=== PATIENT | female | born 1970 | race Caucasian/White ===

== ENCOUNTER 2019-04-10 17:28 | Emergency (ER) | payer OTHER ==
[2019-04-10] MEDS ORDERED: DOXYCYCLINE 100 MG CAP PO ONE (18:35)
[2019-04-10] MEDS ORDERED: TETANUS & DIPHTHERIA TOX,ADULT 0.5 ML VIAL ONE (18:35)
--- NOTE | 2019-04-10 18:39 | ER ---
Nurse's Notes [facility] Name: Vicki Peace Age: 48 yrs Sex: Female : 1970 Arrival Date: 04/10/2019 Time: 17:29 Bed 16 Private MD: Diagnosis: Bitten by dog Presentation: 04/10 18:08 Presenting complaint: Patient states: Dog bite on the right forearm by her son's dog rb1 that he just got [facility] Transition of care: patient was not received from another setting of care. Onset of symptoms was April 10, 2019 at 17:15. 18:08 Method Of Arrival: Ambulatory rb1 18:08 Acuity: MARI 3 rb1 18:46 Risk Assessment: Do you want to hurt yourself or someone else? Patient reports no ae4 desire to harm self or others. Initial Sepsis Screen: Does the patient meet any 2 criteria? No. Patient's initial sepsis screen is negative. Does the patient have a suspected source of infection? No. Patient's initial sepsis screen is negative. Care prior to arrival: None. Triage Assessment: 18:10 Bite description: bite sustained to Right forearm by a dog, animal information: rb1 Appearance: appeared well, vaccination(s) is current, was sustained 30-60 minutes ago. Animal status: son's dog. Neuro: Level of Consciousness is awake, alert, obeys commands, Oriented to person, place, time, situation. Respiratory: Airway is patent Respiratory effort is even, unlabored, Respiratory pattern is regular, symmetrical. Derm: Skin is pink, warm \T\ dry. Wound noted right forearm. FLIGHT HOSTESS: 18:48 LMP N/A - Irregular menses ae4 Historical: - Allergies: 18:10 Sulfa (Sulfonamide Antibiotics); rb1 18:10 PENICILLINS; rb1 - Immunization history:: Adult Immunizations up to date, Last tetanus immunization: > 10 years ago. - Social history:: Smoking status: Patient/guardian denies using tobacco. - Ebola Screening: : Patient negative for fever greater than or equal to 101.5 degrees Fahrenheit, and additional compatible Ebola Virus Disease symptoms Patient denies exposure to infectious person Patient denies travel to an Ebola-affected area in the 21 days before illness onset. Screenin:46 Abuse screen: Denies threats or abuse. Nutritional screening: No deficits noted. ae4 Tuberculosis screening: No symptoms or risk factors identified. Fall Risk None identified. Assessment: 18:28 Reassessment: Called [place] [employer] to report the dog bite. It happened at [address], [place] [address]. Bradley Tellez is the pt. son and radiology teacher of the dog, his phone number [phone]. [employer] will send someone to speak with the pt. 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 General: ae4 Appears in no apparent distress. uncomfortable, Behavior is cooperative, anxious. Pain: Complains of pain in dorsal aspect of right forearm, right wrist and palmar aspect of right forearm Pain currently is 8 out of 10 on a pain scale. Neuro: Level of Consciousness is awake, alert, obeys commands, Oriented to person, place, time, situation, Appropriate for age. Cardiovascular: Patient's skin is warm and dry. Respiratory: Airway is patent Respiratory effort is even, unlabored, Respiratory pattern is regular, symmetrical. GI: No signs and/or symptoms were reported involving the gastrointestinal system. : No signs and/or symptoms were reported regarding the genitourinary system. EENT: No signs and/or symptoms were reported regarding the EENT system. Derm: Skin Puncture wounds to to right wrist. 4 small punctures with small amount of blood noted, redness and beginning sign of purple bruising to right inner wrist. 19:21 Reassessment: Patient and/or family updated on plan of care and expected duration. Pain ea level reassessed. Patient is alert, oriented x 3, equal unlabored respirations, skin warm/dry/pink. Discharge instruction given to patient, verbalized the understanding of instruction. Pt left ED ambulatory accompanied by family. Vital Signs: 18:10 BP 135 / 85; Pulse 84; Resp 18; Temp 99.0(TE); Pulse Ox 98% on R/A; Weight 89.36 kg rb1 (R); Height 5 ft. 5 in. (165.10 cm) (R); Pain 5/10; 18:10 Body Mass Index 32.78 (89.36 kg, 165.10 cm) rb1 ED Course: 17:29 Patient arrived in ED. as 17:56 Jyoti Camarena FNP-C is PHCP. kb 17:56 Willy Garcia MD is Attending Physician. kb 18:09 Triage completed. rb1 18:10 Arm band placed on left wrist. rb1 18:30 Ulises Green, RN is Primary Nurse. ae4 18:47 Bed in low position. Call light in reach. Side rails up X 1. Adult w/ patient. ae4 18:47 Wound care: to bite located on dorsal aspect of right forearm, right wrist and palmar ae4 aspect of right forearm was cleaned with Betadine, irrigated with normal saline. 18:49 Wound care: to Patient tolerated well. mh5 19:22 No provider procedures requiring assistance completed. Patient did not have IV access ea during this emergency room visit. Administered Medications: 18:40 Drug: Doxycycline 100 mg Route: PO; ae4 19:07 Follow up: Response: Medication administered at discharge. ae4 18:40 Drug: Tetanus-Diphtheria Toxoid Adult 0.5 ml {[employer]: [employer]. Exp: ae4 04/28/2021. Lot #: [id number]. } Route: IM; Site: left deltoid; 19:07 Follow up: Response: No adverse reaction ae4 Outcome: 18:38 Discharge ordered by MD. kb 19:22 Discharged to home ambulatory, with family. ea 19:22 Condition: stable 19:22 Discharge instructions given to patient, Instructed on discharge instructions, follow up and referral plans. medication usage, Demonstrated understanding of instructions, follow-up care, medications, Prescriptions given X 1. 19:23 Patient left the ED. ea Signatures: Jyoti Camarena FNP-C FNP-Vannesa Faye Shelby, RN RN Chrissy Graham, Danika Damian RN [facility] Thu Theodore RN RN ea Elliott, Andrea, RN RN ae4 Corrections: (The following items were deleted from the chart) 18:30 18:28 Reassessment: Called [facility] to report the dog bite. It happened at [address] [facility], [place] [address]. Bradley Tellez is the pt. son and radiology teacher of the dog, his phone number [phone]. PD will send someone to speak with the pt. 18:31 18:08 Presenting complaint: Patient states: Dog bite on the right forearm by her son's rb1 dog that he just got from [place] [facility]. rb1 18:31 18:28 Reassessment: Called [place] [employer] to report the dog bite. It happened at [address], [place] [address]. Bradley Tellez is the pt. son and radiology teacher of the dog, his phone number [phone]. [employer] will send someone to speak with the pt. ss
--- NOTE | 2019-04-10 18:39 | EDPHYS ---
Physician Documentation [facility] Name: Vicki Peace Age: 48 yrs Sex: Female : 1970 Arrival Date: 04/10/2019 Time: 17:29 Bed 16 Private MD: ED Physician Willy Garcia HPI: 04/10 18:48 This 48 yrs old Female presents to ER via Ambulatory with complaints of Dog kb Bite - r wrist. 18:48 The patient was bitten on the dorsal aspect of right forearm, by a dog, for an unknown kb reason, at a relative's home. Onset: The symptoms/episode began/occurred today. Animal information: Animal's vaccinations are up to date. The animal is known and can be quarantined. Secondary to the bite the patient reports multiple puncture wounds, that are superficial. Associated signs and symptoms: Pertinent positives: pain at site, swelling at site, tenderness. Severity of symptoms: At their worst the symptoms were mild, moderate, in the emergency department the symptoms are unchanged. The patient has not experienced similar symptoms in the past. Pt reports her son just got a new dog from the [facility] and it bit her. 18:49 The patient has not recently seen a physician. 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 - Social history:: Smoking status: Patient/guardian denies using tobacco. - Ebola Screening: : Patient negative for fever greater than or equal to 101.5 degrees Fahrenheit, and additional compatible Ebola Virus Disease symptoms Patient denies exposure to infectious person Patient denies travel to an Ebola-affected area in the 21 days before illness onset. ROS: 18:47 Constitutional: Negative for fever, chills, and weight loss, Neck: Negative for injury, kb pain, and swelling, Cardiovascular: Negative for chest pain, palpitations, and edema, Respiratory: Negative for shortness of breath, cough, wheezing, and pleuritic chest pain, Abdomen/GI: Negative for abdominal pain, nausea, vomiting, diarrhea, and constipation, Back: Negative for injury and pain, MS/Extremity: Negative for injury and deformity, Neuro: Negative for headache, weakness, numbness, tingling, and seizure. 18:47 Skin: Positive for puncture, of the dorsal aspect of right forearm. Exam: 18:46 Constitutional: This is a well developed, well nourished patient who is awake, alert, kb and in no acute distress. Head/Face: Normocephalic, atraumatic. Neck: Trachea midline, no thyromegaly or masses palpated, and no cervical lymphadenopathy. Supple, full range of motion without nuchal rigidity, or vertebral point tenderness. No Meningismus. Chest/axilla: Normal chest wall appearance and motion. Nontender with no deformity. No lesions are appreciated. Cardiovascular: Regular rate and rhythm with a normal S1 and S2. No gallops, murmurs, or rubs. Normal PMI, no JVD. No pulse deficits. Respiratory: Lungs have equal breath sounds bilaterally, clear to auscultation and percussion. No rales, rhonchi or wheezes noted. No increased work of breathing, no retractions or nasal flaring. Abdomen/GI: Soft, non-tender, with normal bowel sounds. No distension or tympany. No guarding or rebound. No evidence of tenderness throughout. MS/ Extremity: Pulses equal, no cyanosis. Neurovascular intact. Full, normal range of motion. Neuro: Awake and alert, GCS 15, oriented to person, place, time, and situation. Cranial nerves II-XII grossly intact. Motor strength 5/5 in all extremities. Sensory grossly intact. Cerebellar exam normal. Normal gait. 18:46 Skin: injury, bite(s), superficial, of the dorsal aspect of right forearm, punctures. Vital Signs: 18:10 BP 135 / 85; Pulse 84; Resp 18; Temp 99.0(TE); Pulse Ox 98% on R/A; Weight 89.36 kg rb1 (R); Height 5 ft. 5 in. (165.10 cm) (R); Pain 5/10; 18:10 Body Mass Index 32.78 (89.36 kg, 165.10 cm) rb1 MDM: 18:11 Patient medically screened. kb 18:46 Data reviewed: vital signs, nurses notes. Data interpreted: Pulse oximetry: on room air kb is 98 %. Interpretation: normal. Counseling: I had a detailed discussion with the patient and/or guardian regarding: the historical points, exam findings, and any diagnostic results supporting the discharge/admit diagnosis, the need for outpatient follow up, a family practitioner, to return to the emergency department if symptoms worsen or persist or if there are any questions or concerns that arise at home. 04/10 18:12 Order name: Wound Care; Complete Time: 18:49 kb 04/10 18:12 Order name: Misc. Order: [facility]; Complete Time: 18:49 kb Administered Medications: 18:40 Drug: Doxycycline 100 mg Route: PO; ae4 19:07 Follow up: Response: Medication administered at discharge. ae4 18:40 Drug: Tetanus-Diphtheria Toxoid Adult 0.5 ml {[employer]: [employer]. Exp: ae4 04/28/2021. Lot #: [id number]. } Route: IM; Site: left deltoid; 19:07 Follow up: Response: No adverse reaction ae4 Disposition: 04/10/19 18:38 Discharged to Home. Impression: Bitten by dog. - Condition is Stable. - Discharge Instructions: Animal Bite, [id number]. - Prescriptions for Doxycycline Hyclate 100 mg Oral Tablet - take 1 tablet by ORAL route every 12 hours; 20 tablet. - Medication Reconciliation Form, Thank You Letter, Antibiotic Education, Prescription Opioid Use form. - Follow up: Emergency Department; When: As needed; Reason: Worsening of condition. Follow up: Private Physician; When: 2 - 3 days; Reason: Recheck today's complaints, Continuance of care, Re-evaluation by your physician. Addendum: 04/18/2019 11:13 Co-signature as Attending Physician, Willy Garcia MD I agree with the assessment and c rodriguez plan of care. Signatures: Jyoti Camarena, PILOT-C PILOT-Ckb Willy Garcia MD MD cha Barber, Rebecca, RN RN Thu Hernandez RN RN ea Elliott, Andrea RN RN ae4 Corrections: (The following items were deleted from the chart) 04/10 19:23 18:38 04/10/2019 18:38 Discharged to Home. Impression: Bitten by dog. Condition is ea Stable. Forms are Medication Reconciliation Form, Thank You Letter, Antibiotic Education, Prescription Opioid Use. Follow up: Emergency Department; When: As needed; Reason: Worsening of condition. Follow up: Private Physician; When: 2 - 3 days; Reason: Recheck today's complaints, Continuance of care, Re-evaluation by your physician. kb
[2019-04-10 21:06] VITALS: BP 135/85; TEMP 99; O2SAT 98
== END 2019-04-10 19:23 | disposition home or self-care (01) ==
LOC: ER 17:28
DX: S51.831A Puncture wound without foreign body of right forearm, initial encounter (principal); W54.0XXA Bitten by dog, initial encounter; Y93.9 Activity, unspecified; Y92.89 Other specified places as the place of occurrence of the external cause; Z23 Encounter for immunization; Z88.0 Allergy status to penicillin; Z88.2 Allergy status to sulfonamides
CPT/HCPCS: 90471; 90714; 99284

== ENCOUNTER 2021-08-17 00:22 | Emergency (ER) | payer OTHER, SELFPAY ==
--- OUTSIDE RECORDS SUMMARY | 2021-08-17 00:25 | XMS REPORT | Continuity of Care Document ---
:1970 Author Organization [facility] t Address [address] [place] [address] [address] [place] [address] Care Team Providers Name Role Phone Tor MILES, H Attending Clinician Marcella BUTCHER M Attending Clinician Unavailable Doctor Unassigned, Name Attending Clinician Unavailable Pob[facility], Care [facility] Attending Clinician Unavailable Anene CHEF SAUCIER Attending Clinician ANENE Attending Clinician Unavailable Payers Payer Name Policy Type Policy Number Effective Date Expiration Date S ource Problems Condition Condition Condition Status Onset Resolution Last Treating Co mments Source Name Details Category Date Date Treatment Clinician Date No known No known Disease NPI:1 83 active active [id number] problems problems Allergies, Adverse Reactions, Alerts Allergy Allergy Status Severity Reaction(s) Onset Inactive Treating Comm ents Source Name Type Date Date Clinician NO KNOWN Drug Active NPI:183 ALLERGIE Class [id number] S Social History Social Habit Start Date Stop Date Quantity Comments Source History of Cigarette Smoker NPI:[id number] tobacco use Sex Assigned At NPI:[id number] Exposure to Not sure NPI:[id number] SARS-CoV-2 (event) Tobacco Comment 2019-10-06 2019-10-06 vape NPI:[id number] 00:00:00 00:00:00 Smoking Status Start Date Stop Date Source Former smoker 2019-10-06 00:00:00 2019-10-06 00:00:00 NPI:[id number] Medications Ordered Filled Start Stop Current Ordering Indication Dosage Frequency Signature Comments Components Source Medication Medication Date Date Medication? Clinician (SIG) Name Name metformin Yes NPI:183 ER 500 mg 09-12 [id number] 24 hr 00:00: tablet 00 atorvastati Yes NPI:18 3 n 20 mg 09-12 [id number] tablet 00:00: 00 lisinopril 2020-0 Yes NPI:183 5 mg tablet - [id number] 00:00: 00 metoprolol 2020-0 Yes NPI:183 succinate 6- [id number] XL 50 mg 24 00:00: hr tablet 00 metformin 2020-0 Yes NPI:183 ER 500 mg 6- [id number] 24 hr 00:00: tablet 00 atorvastati 2020-0 Yes NPI:18 3 n 20 mg 6- [id number] tablet 00:00: 00 lisinopril 2020-0 Yes NPI:183 5 mg tablet 09-12 [id number] 00:00: 00 metoprolol 2020-0 Yes NPI:183 succinate 6- [id number] XL 50 mg 24 00:00: hr tablet 00 metformin 2020-0 Yes NPI:183 ER 500 mg 6- [id number] 24 hr 00:00: tablet 00 atorvastati 2020-0 Yes NPI:18 3 n 20 mg - [id number] tablet 00:00: 00 lisinopril 2020-0 Yes NPI:183 5 mg tablet - [id number] 00:00: 00 metoprolol 2020-0 Yes NPI:183 succinate 6- [id number] XL 50 mg 24 00:00: hr tablet 00 metformin 2020-0 Yes NPI:183 ER 500 mg - [id number] 24 hr 00:00: tablet 00 atorvastati 2020-0 Yes NPI:18 3 n 20 mg - [id number] tablet 00:00: 00 lisinopril 2020-0 Yes NPI:183 5 mg tablet - [id number] 00:00: 00 metoprolol 2020-0 Yes NPI:183 succinate 6- [id number] XL 50 mg 24 00:00: hr tablet 00 Vital Signs Vital Name Observation Time Observation Value Comments Source Systolic blood pressure 2019-10-06 20:46:00 134 mm[Hg] Diastolic blood 2019-10-06 20:46:00 92 mm[Hg] NPI:1 [id number] pressure Heart rate 2019-10-06 20:43:00 66 /min NPI:[id number] Body temperature 2019-10-06 20:43:00 37.61 Stefany Respiratory rate 2019-10-06 20:43:00 17 /min Body height 2019-10-06 20:43:00 166.4 cm NPI:1831 [id number] Body weight 2019-10-06 20:43:00 94.802 kg NPI:1831 [id number] BMI 2019-10-06 20:43:00 34.25 kg/m2 NPI:1831 [id number] Oxygen saturation in 2019-10-06 20:43:00 99 /min Arterial blood by Pulse oximetry Procedures This patient has no known procedures. Encounters Start End Encounter Admission Attending Care Care Encounter Source Date/Time Date/Time Type Type Clinicians Facility Department ID 2019-10-07 2019-10-07 Letter SESAR Lentz [id number] NPI:183 00:00:00 00:00:00 (Out) [facility] [id number] [facility] [id number] 2019-10-07 2019-10-07 Telephone Rosina Naranjo [id number] NPI:183 00:00:00 00:00:00 [facility] [id number] [id number] [facility] [id number] 2019-10-07 2019-10-07 Letter Doctor DONG [id number] NPI:183 00:00:00 00:00:00 (Out) Unassigned, DAMON [id number] [facility] [id number] 2019-10-06 2019-10-06 Urgent Pob1, Acute Care Clinic [facility] [id number] NPI:183 15:17:18 16:11:22 Asha Eddy [id number] [place] [id number] Professio [id number] nal [address] 2019-10-06 2019-10-06 Outpatient Zarina GERARDO [facility] [id number] NPI:183 15:20:00 15:20:00 ASHA [id number] Results Test Description Test Time Test Comments Results Result Sourc e Comments SCR MAMM 2020-04-30 BILATERAL TRISTON 17:29:57 CAD DIGITAL Name: Vicki : 1970 Sex: F - SCR MAMM BILATERAL TRISTON CAD DIGITALBILATERAL DIGITAL SCREENING MAMMOGRAM 3D/2D WITH CAD: 04/18/2020LINICAL: Asymptomatic. Digital breast tomosynthesis was performed in addition to routine CC and MLO views. Current mammographic images were evaluated by either a [employer] M-Vu or a [employer] ImageChecker CAD (computer aided detection system). No prior exams were available for comparison. There are scattered fibroglandular tissues in both breasts. There are benign densities in both breasts. No suspicious mass, architectural distortion, malignant type calcification, or lymph node abnormality detected. IMPRESSION: BENIGNThere is no mammographic evidence of malignancy. Resume annual screening mammography in one year. Farheen shahid/penrad:04/30/2020 17:29:57 Dietitian Assistant: Gianna Parekh MM, [facility] Mammographyletter sent: BIRADS 1-2 Normal Mammogram BI-RADS: 2 Benign
--- NOTE | 2021-08-17 01:54 | EDPHYS ---
Physician Documentation [facility] Name: Vicki Peace Age: 50 yrs Sex: Female : 1970 Arrival Date: 08/17/2021 Time: 00:26 Bed 11 Private MD: ED Physician John Watts HPI: 08/17 01:47 This 50 yrs old Female presents to ER via Ambulatory with complaints of Rash. [facility] 01:47 The patient's rash thought to be caused by insect bites. The rash is located on the mh7 body diffusely. The rash can be described as urticarial. Onset: The symptoms/episode began/occurred yesterday. Associated signs and symptoms: Pertinent positives: itching, Pertinent negatives: burning sensation, difficulty breathing, fever, nausea, Pain swelling of lips, swelling of throat, swelling of tongue, vomiting, wheezing. Severity of symptoms: At their worst the symptoms were moderate yesterday, in the emergency department the symptoms are unchanged. Treatment given at home: OTC lotion/cream. States that she was at a bar and thinks she was bitten by some small insects then the next morning noticed an itchy rash all over her body. Denies change of soap, detergents, new medication, or recent travel.. Historical: - Allergies: 01:15 PENICILLINS; lp1 01:15 Sulfa (Sulfonamide Antibiotics); lp1 - Home Meds: 01:15 Metoprolol Tartrate Oral [Active]; lp1 - PMHx: 01:15 Hypertensive disorder; Hypercholesterolemia; lp1 - PSHx: 01:15 Cholecystectomy; Appendectomy; tubal ligation; lp1 - Immunization history:: Adult Immunizations up to date, Client reports receiving the 2nd dose of the Covid vaccine. - Social history:: Smoking status: Reported history of juuling and/or vaping. ROS: 01:47 Constitutional: Negative for fever, chills, and weight loss, Eyes: Negative for injury, mh7 pain, redness, and discharge, ENT: Negative for injury, pain, and discharge, Neck: Negative for injury, pain, and swelling, Cardiovascular: Negative for chest pain, palpitations, and edema, Respiratory: Negative for shortness of breath, cough, wheezing, and pleuritic chest pain, Abdomen/GI: Negative for abdominal pain, nausea, vomiting, diarrhea, and constipation, Back: Negative for injury and pain, : Negative for injury, bleeding, discharge, and swelling, MS/Extremity: Negative for injury and deformity, Neuro: Negative for headache, weakness, numbness, tingling, and seizure, Psych: Negative for depression, anxiety, suicide ideation, homicidal ideation, and hallucinations, Endocrine: Negative for neck swelling, polydipsia, polyuria, polyphagia, and marked weight changes, Hematologic/Lymphatic: Negative for swollen nodes, abnormal bleeding, and unusual bruising. Exam: 01:47 Constitutional: This is a well developed, well nourished patient who is awake, alert, mh7 and in no acute distress. Head/Face: Normocephalic, atraumatic. Eyes: Pupils equal round and reactive to light, extra-ocular motions intact. Lids and lashes normal. Conjunctiva and sclera are non-icteric and not injected. Cornea within normal limits. Periorbital areas with no swelling, redness, or edema. ENT: Nares patent. No nasal discharge, no septal abnormalities noted. Tympanic membranes are normal and external auditory canals are clear. Oropharynx with no redness, swelling, or masses, exudates, or evidence of obstruction, uvula midline. Mucous membranes moist. Neck: Trachea midline, no thyromegaly or masses palpated, and no cervical lymphadenopathy. Supple, full range of motion without nuchal rigidity, or vertebral point tenderness. No Meningismus. Chest/axilla: Normal chest wall appearance and motion. Nontender with no deformity. No lesions are appreciated. Cardiovascular: Regular rate and rhythm with a normal S1 and S2. No gallops, murmurs, or rubs. Normal PMI, no JVD. No pulse deficits. Respiratory: Lungs have equal breath sounds bilaterally, clear to auscultation and percussion. No rales, rhonchi or wheezes noted. No increased work of breathing, no retractions or nasal flaring. Abdomen/GI: Soft, non-tender, with normal bowel sounds. No distension or tympany. No guarding or rebound. No evidence of tenderness throughout. Back: No spinal tenderness. No costovertebral tenderness. Full range of motion. MS/ Extremity: Pulses equal, no cyanosis. Neurovascular intact. Full, normal range of motion. Neuro: Awake and alert, GCS 15, oriented to person, place, time, and situation. Cranial nerves II-XII grossly intact. Motor strength 5/5 in all extremities. Sensory grossly intact. Cerebellar exam normal. Normal gait. Psych: Awake, alert, with orientation to person, place and time. Behavior, mood, and affect are within normal limits. 01:47 Skin: rash a mild rash is noted, rash can be described as urticarial, and is diffusely located. Vital Signs: 01:16 BP 146 / 85; Pulse 109; Resp 20; Temp 98.2; Pulse Ox 100% on R/A; Weight 93.44 kg (R); lp1 Height 5 ft. 5 in. (165.10 cm); 01:16 Body Mass Index 34.28 (93.44 kg, 165.10 cm) lp1 MDM: 01:51 Differential diagnosis: impetigo, varicella, allergic reaction, parasite infection. [facility] Data reviewed: vital signs, nurses notes. Data interpreted: Pulse oximetry: on room air is 100 %. Interpretation: normal. 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 01:53 Patient medically screened. [facility] Administered Medications: 02:07 Drug: predniSONE 60 mg Route: PO; lp1 02:08 Follow up: Response: Medication administered at discharge. lp1 02:07 Drug: Pepcid (famotidine) 20 mg Route: PO; lp1 02:08 Follow up: Response: Medication administered at discharge. lp1 02:07 Drug: Benadryl (diphenhydrAMINE) 50 mg Route: PO; lp1 02:08 Follow up: Response: Medication administered at discharge. lp1 Disposition Summary: 08/17/21 01:53 Discharge Ordered Location: Home [facility] Problem: [facility] Symptoms: have improved mh7 Condition: Stable mh Diagnosis - Rash and other nonspecific skin eruption - possible insect bites 7 - Urticaria, unspecified mh7 Followup: [facility] - With: Private Physician - When: 1 - 2 days - Reason: Worsening of condition, Recheck today's complaints, Continuance of care, Re-evaluation by your physician Followup: [facility] - With: Angella Crawley MD - When: 1 - 2 days - Reason: Worsening of condition, Recheck today's complaints Followup: [facility] - With: Shubham Felder MD - When: 5 - 6 days - Reason: Worsening of condition, Recheck today's complaints Discharge Instructions: - Discharge Summary Sheet [facility] - Rash, Adult, [id number] [facility] - Hives, [id number] [facility] Forms: - Medication Reconciliation Form [facility] - Thank You Letter [facility] - Antibiotic Education [facility] - Prescription Opioid Use [facility] Prescriptions: - Benadryl 25 mg Oral Capsule - take 1 capsule by ORAL route every 6 hours As needed; 30 tablet; Refills: 0, [facility] Product Selection Permitted - Pepcid 20 mg Oral Tablet - take 1 tablet by ORAL route every 12 hours for 5 days; 10 tablet; Refills: 0, [facility] Product Selection Permitted - Prednisone 20 mg Oral Tablet - take 2 tablets by ORAL route once daily for 5 days; 10 tablet; Refills: 0, [facility] Product Selection Permitted Signatures: Sveta Florentino, RN RN lp1 John Watts MD MD [facility]
--- NOTE | 2021-08-17 01:54 | ER ---
Nurse's Notes [facility] Name: Vicki Peace Age: 50 yrs Sex: Female : 1970 Arrival Date: 08/17/2021 Time: 00:26 Bed 11 Private MD: Diagnosis: Rash and other nonspecific skin eruption-possible insect bites;Urticaria, unspecified Presentation: 08/17 01:13 Chief complaint: Patient states: "I think I got bit by something at [employer]"; Reports lp1 sitting under tree at bar 1 day ago and has "bites" to back of legs, buttocks and posterior back; Patient actively itching during triage. Coronavirus screen: At this time, the client does not indicate any symptoms associated with coronavirus-19. Ebola Screen: No symptoms or risks identified at this time. Risk Assessment: Do you want to hurt yourself or someone else? Patient reports no desire to harm self or others. Onset of symptoms was August 17, 2021. 01:13 Method Of Arrival: Ambulatory lp1 01:13 Acuity: MARI 4 lp1 01:16 Initial Sepsis Screen: Does the patient meet any 2 criteria? No. Patient's initial lp1 sepsis screen is negative. Does the patient have a suspected source of infection? No. Patient's initial sepsis screen is negative. Historical: - Allergies: 01:15 PENICILLINS; lp1 01:15 Sulfa (Sulfonamide Antibiotics); lp1 - Home Meds: 01:15 Metoprolol Tartrate Oral [Active]; lp1 - PMHx: 01:15 Hypertensive disorder; Hypercholesterolemia; lp1 - PSHx: 01:15 Cholecystectomy; Appendectomy; tubal ligation; lp1 - Immunization history:: Adult Immunizations up to date, Client reports receiving the 2nd dose of the Covid vaccine. - Social history:: Smoking status: Reported history of juuling and/or vaping. Screenin:18 Abuse screen: Denies threats or abuse. Denies injuries from another. Nutritional lp1 screening: No deficits noted. Tuberculosis screening: No symptoms or risk factors identified. Fall Risk None identified. Assessment: 01:30 General: Appears in no apparent distress. Behavior is appropriate for age. Pain: Denies lp1 pain. Neuro: Level of Consciousness is awake, alert, obeys commands. Cardiovascular: Patient's skin is warm and dry. Respiratory: Respiratory effort is even, unlabored. GI: No signs and/or symptoms were reported involving the gastrointestinal system. : No signs and/or symptoms were reported regarding the genitourinary system. EENT: No signs and/or symptoms were reported regarding the EENT system. Derm: Rash noted that is itchy, papular, red, raised, urticaria, on right hamstring, left hamstring, left mid back and right mid back. 01:30 Musculoskeletal: No deficits noted. lp1 Vital Signs: 01:16 BP 146 / 85; Pulse 109; Resp 20; Temp 98.2; Pulse Ox 100% on R/A; Weight 93.44 kg (R); lp1 Height 5 ft. 5 in. (165.10 cm); 01:16 Body Mass Index 34.28 (93.44 kg, 165.10 cm) lp1 ED Course: 00:26 Patient arrived in ED. ja2 01:13 Arm band placed on right wrist. lp1 01:15 Triage completed. lp1 01:19 Patient has correct armband on for positive identification. lp1 01:29 John Watts MD is Attending Physician. mh7 01:52 Angella Crawley MD is Referral Physician. mh7 01:53 Shubham Felder MD is Referral Physician. mh7 02:07 Sveta Florentino, RN is Primary Nurse. lp1 02:08 No provider procedures requiring assistance completed. Patient did not have IV access lp1 during this emergency room visit. Administered Medications: 02:07 Drug: predniSONE 60 mg Route: PO; lp1 02:08 Follow up: Response: Medication administered at discharge. lp1 02:07 Drug: Pepcid (famotidine) 20 mg Route: PO; lp1 02:08 Follow up: Response: Medication administered at discharge. lp1 02:07 Drug: Benadryl (diphenhydrAMINE) 50 mg Route: PO; lp1 02:08 Follow up: Response: Medication administered at discharge. lp1 Outcome: 01:53 Discharge ordered by . mh7 02:08 Discharged to home ambulatory. lp1 02:08 Condition: good 02:08 Discharge instructions given to patient, Instructed on discharge instructions, follow up and referral plans. medication usage, Demonstrated understanding of instructions, follow-up care, medications, Prescriptions given X 3. 02:08 Patient left the ED. lp1 Signatures: Sveta Florentino RN RN lp1 John Watts MD MD 7 Isela Gilmore
[2021-08-17] MEDS ORDERED: FAMOTIDINE 20 MG TAB ONE (02:07)
[2021-08-17] MEDS ORDERED: DIPHENHYDRAMINE 25 MG TAB/CAP ONE (02:07)
[2021-08-17] MEDS ORDERED: predniSONE 20 MG TAB ONE (02:07)
[2021-08-17 02:28] VITALS: BP 146/85; TEMP 98.2; O2SAT 100
== END 2021-08-17 02:08 | disposition home or self-care (01) ==
LOC: ER 00:22
DX: L50.9 Urticaria, unspecified (principal); I10 Essential (primary) hypertension; E78.00 Pure hypercholesterolemia, unspecified; Z88.0 Allergy status to penicillin; Z88.2 Allergy status to sulfonamides
CPT/HCPCS: 99283; J7512

== ENCOUNTER 2023-10-13 18:49 | Emergency (ER) | payer OTHER, SELFPAY ==
--- OUTSIDE RECORDS SUMMARY | 2023-10-13 18:53 | XMS REPORT | Continuity of Care Document ---
Author Name Unknown Address [address] [facility] [address]on[address] [place] [address] [facility] thconnect Address [address] [facility] [address] [place] [address] Care Team Providers Care Ex Assistant/Program Director Name Role Phone TREVMILLER Attending Clinician Unavailable MD JEOVANY Attending Clinician Unavailab le LAB90 Attending Clinician Unavailable [email or web address]_S Attending Clinician Unavaila HERON Kelly Attending Clinician Unavailable PATRICK AGUILERA Attending Clinician Unavailable BRIGETTE GUTIERREZ Attending Clinician UnavailMEREDITH [facility] Attending Clinicia n Vanessa Morgan MD, Farheen Del Rio Attending Clinician [phone] Doctor Unassigned, Garvin Attending Clinician U jelani Lentz MD, Stanton Ayala Attending Clinician [phone] Rosina Naranjo RN Attending Clinician Unavailable [facility] Attending Clinician UnaPuja Black Attending Clinician [phone] PUJA GERARDO Attending Clinician Unavailable [email or web address]_S Admitting Clinician Unavaila ble Payers Payer Name Policy Type Policy Number Effective Date Expirati on Date Source [facility]-90 DEGREE BENEFIT 2 [id number] 2022 00:00:00 [facility] [employer]ani[employer] PLANS - OPEN ACCESS [id number] 2022 00:00:00 Problems Condition Name Condition Details Condition Category Status Onset Date Resolution Date Last Treatment Date Treating Clinician Comments Source Insomnia Insomnia Disease Active 09-02 00:00: 00 Meredith Seybold - Externa l Stress incontinen ce of urine Stress incontinen ce of urine Disease Active 12-17 00:00: 00 Meredith Seybold - Externa l Cerumen debris on tympanic membrane of left ear Cerumen debris on tympanic membrane of left ear Disease Active 12-17 00:00: 00 Meredith Seybold - Externa l Prediabete s Prediabete s Disease Active 10-20 00:00: 00 Meredith Seybold - Externa l Hyperlipid emia Hyperlipid emia Disease Active 10-20 00:00: 00 Meredith Seybold - Externa l Primary hypertensi on - Controlled Primary hypertensi on - Controlled Disease Active 10-20 00:00: 00 Meredith Seybold - Externa l ALEXA (generaliz ed anxiety disorder) - Not Controlled ALEXA (generaliz ed anxiety disorder) - Not Controlled Disease Active 10-20 00:00: 00 Meredith Seybold - Externa l Current mild episode of major depressive disorder Current mild episode of major depressive disorder Disease Active 07-29 00:00: 00 Meredith Seybold - Externa l PTSD (post-trau matic stress disorder) PTSD (post-trau matic stress disorder) Disease Active 07-29 00:00: 00 Meredith Seybold - Externa l No known active problems No known active problems Disease [facility] Allergies, Adverse Reactions, Alerts Allergy Name Allergy Type Status Severity Reaction(s) Onset Date Inactive Date Treating Clinician Comments Source Sulfa Drugs Propensi ty to adverse reaction s Active Rash 04-13 00:00: 00 Meredith Seybold - Externa l Penicill ins Propensi ty to adverse reaction s Active Anaphylaxis 04-13 00:00: 00 Meredith Seybold - Externa l NO KNOWN ALLERGIE S Drug Class Active [facility] Social History Social Habit Start Date Stop Date Quantity Comments Source Gender identity 2022-07-29 08:05:17 Identifies as female gender (finding) Meredith Montoya - External Sexual orientation 2022-07-29 08:05:17 Heterosexual (finding) Meredith Montoya - External History of tobacco use Current smoker Meredith [place] - External Exposure to SARS-CoV-2 (event) Not sure [facility] History of Social function 2023-01-08 00:00:00 2023-01-08 00:00:00 Meredith Montoya - External Tobacco Comment 2019-10-06 00:00:00 2019-10-06 00:00:00 vape [facility] Sex assigned at 1970 00:00:00 1970 00:00:00 F Meredith Montoya - External Smoking Status Start Date Stop Date Source Ex-smoker 2022-07-29 00:00:00 2022-07-29 00:00:00 K marilynn Montoya - External Medications Ordered Medication Name Filled Medication Name Start Date Stop Date Current Medication? Ordering Clinician Indication Dosage Frequency Signature (SIG) Comments Components Source Omeprazole 20 MG oral Delayed Release Capsule 09-02 00:00: 00 Yes [id number] 20mg Take 1 capsule (20 mg total) by mouth daily. Meredith butts Trazodone HCl 50 MG oral Tablet 09-02 00:00: 00 09-02 00:00 :00 Yes [id number] 50mg Take 1 tablet (50 mg total) by mouth nightly. Meredith butts Vitamin D, Ergocalcife rol, 1.25 MG (28457 UT) oral Capsule 08-05 00:00: 00 Yes [id number] 91626B Take 1 capsule (50,000 units total) by mouth once a week. Meredith butts Trazodone HCl 50 MG oral Tablet 08-02 00:00: 00 09-02 00:00 :00 No [id number] 50mg Take 1 tablet (50 mg total) by mouth nightly. Meredith butts Omeprazole 20 MG oral Delayed Release Capsule 22 00:00: 00 09-02 00:00 :00 No [id number] 20mg Take 1 capsule (20 mg total) by mouth daily. Meredith Duarte Externa l Cyclobenzap rine HCl 5 MG oral Tablet 01-08 00:00: 00 08-02 00:00 :00 No [id number] 5mg Q.[id number] 3D Take 1 tablet (5 mg total) by mouth 3 times daily as needed for muscle spasms. Meredith butts Omeprazole 20 MG oral Delayed Release Capsule 01-08 00:00: 00 08-02 00:00 :00 No [id number] 20mg Take 1 capsule (20 mg total) by mouth daily. Meredith butts Topiramate 50 MG oral Tablet 12-23 00:00: 00 08-02 00:00 :00 No [id number] 50mg Take 1 tablet (50 mg total) by mouth 2 times daily. Meredith butts hydrOXYzine HCl 10 MG oral Tablet 12 00:00: 00 08-02 00:00 :00 No [id number] 10mg Q.[id number] 3D Take 1 tablet (10 mg total) by mouth 3 times daily as needed for itching or anxiety. Meredith butts Cefdinir 300 MG oral Capsule 908 00:00: 00 08-02 00:00 :00 No [id number] 300mg Take 1 capsule (300 mg total) by mouth 2 times daily. Meredith butts Gabapentin 100 MG oral Capsule 8-16 00:00: 00 Yes Take 1 capsule twice a day by oral route as needed for 30 days. Meredith Duarte Externa beckie Sertraline HCl 100 MG oral Tablet 0 8-08 00:00: 00 Yes [id number] 100mg Take 1 tablet (100 mg total) by mouth daily Meredith butts Sertraline HCl 50 MG oral Tablet 11-18 00:00: 00 Yes [id number] 50mg Take 1 tablet (50 mg total) by mouth daily Meredith butts Topiramate 25 MG oral Tablet 11-18 00:00: 00 12-23 00:00 :00 No [id number] 25mg Take 1 tablet (25 mg total) by mouth 2 times daily Meredith butts Semaglutide -Weight Management (Wegovy) 0.25 MG/0.5ML subcutaneou s Solution Auto-inject or 11-18 00:00: 00 12-23 00:00 :00 No [id number] .25mg Inject 0.25 mg into the skin once a week Meredith butts Atorvastati n Calcium 20 MG oral Tablet 11-04 00:00: 00 Yes [id number] 20mg Take 1 tablet (20 mg total) by mouth daily Meredith butts Lisinopril 5 MG oral Tablet 11-04 00:00: 00 Yes [id number] 5mg Take 1 tablet (5 mg total) by mouth daily Meredith butts Metoprolol Succinate 50 MG oral TABLET SR 24 HR 11-04 00:00: 00 Yes [id number] 50mg Take 1 tablet (50 mg total) by mouth daily Meredith butts Sertraline HCl 100 MG oral Tablet 10-21 00:00: 00 Yes [id number] 100mg Take 1 tablet (100 mg total) by mouth daily Meredith butts Sertraline HCl 50 MG oral Tablet 10-21 00:00: 00 Yes [id number] 50mg Take 1 tablet (50 mg total) by mouth daily Meredith butts buPROPion HCl 100 MG oral Tablet 10-21 00:00: 00 12-23 00:00 :00 No [id number] 100mg Take 1 tablet (100 mg total) by mouth daily Meredith butts Sertraline HCl 150 MG oral Capsule 10-21 00:00: 10-21 00:00 :00 No [id number] 1{capsu le} Take 1 capsule by mouth daily Meredith butts Nitrofurant oin Monohyd Macro (Macrobid) 100 MG oral Capsule 09-26 00:00: 00 Yes [id number] 100mg Take 1 capsule (100 mg total) by mouth 2 times daily Meredith butts hydrOXYzine HCl 10 MG oral Tablet 09-23 00:00: 00 12-23 00:00 :00 No [id number] 10mg Q.[id number] 3D Take 1 tablet (10 mg total) by mouth 3 times daily as needed for itching or anxiety Meredith butts Sertraline HCl 100 MG oral Tablet 09-23 00:00: 00 10-21 00:00 :00 No [id number] 100mg Take 1 tablet (100 mg total) by mouth daily Meredith butts Sertraline HCl 50 MG oral Tablet 08-26 00:00: 00 Yes [id number] 50mg Take 1 tablet (50 mg total) by mouth daily Meredith butts Propranolol HCl 10 MG oral Tablet 08-26 00:00: 00 Yes [id number] 20mg Take 2 tablets (20 mg total) by mouth 3 times daily Meredith ubtts Cariprazine HCl 1.5 MG oral Capsule 07-29 15:21: 08 07-29 00:00 :00 No 1{capsu le} Take 1 capsule by mouth daily Meredith butts Sertraline HCl 25 MG oral Tablet 07-29 00:00: 00 Yes [id number] 25mg Take 1 tablet (25 mg total) by mouth daily Meredith butts Metoprolol Succinate 50 MG oral TABLET SR 24 HR 12-06 00:00: 00 Yes [id number] 50mg Take 1 tablet (50 mg total) by mouth daily Meredith butts Atorvastati n Calcium 20 MG oral Tablet 12-06 00:00: 00 Yes [id number] 20mg Take 1 tablet (20 mg total) by mouth daily Meredith butts Lisinopril 5 MG oral Tablet 8-26 00:00: 00 Yes [id number] 5mg Take 1 tablet (5 mg total) by mouth daily Meredith butts metformin ER 500 mg 24 hr tablet 09-12 00:00: 00 Yes [facility] atorvastati n 20 mg tablet 09-12 00:00: 00 Yes [facility] lisinopril 5 mg tablet 09-12 00:00: 00 Yes [facility] metoprolol succinate XL 50 mg 24 hr tablet 09-12 00:00: 00 Yes [facility] Immunizations Ordered Immunization Name Filled Immunization Name Date Status Comments Source Covid-19 Vaccine Moderna (Spikevax), Mrna-lnp, Tej Protein, 2020-07-19 00:00:00 Completed Meredith Montoya [facility] Covid-19 Vaccine Moderna (Spikevax), Mrna-lnp, Tej Protein, 2020-07-19 00:00:00 Completed Meredith Montoya [facility] Covid-19 Vaccine Moderna (Spikevax), Mrna-lnp, Tej Protein, 2020-07-19 00:00:00 Completed Meredith Montoya [facility] Covid-19 Vaccine Moderna (Spikevax), Mrna-lnp, Tej Protein, 2020-07-19 00:00:00 Completed Meredith Montoya External Covid-19 Vaccine Moderna (Spikevax), Mrna-lnp, Tej Protein, 2020-07-19 00:00:00 [facility] Vaccine Moderna (Spikevax), Mrna-lnp, Tej Protein, 2020-07-19 00:00:00 Completed Meredith Montoya External Covid-19 Vaccine Moderna (Spikevax), Mrna-lnp, Tej Protein, 2020-07-19 00:00:00 Completed Meredith Montoya External Covid-19 Vaccine Moderna (Spikevax), Mrna-lnp, Tej Protein, 2020-07-19 00:00:00 Completed Meredith Seybold - External Covid-19 Vaccine Moderna (Spikevax), Mrna-lnp, Tej Protein, Pf 2020-06-21 00:00:00 Completed Meredith Seybold - External Covid-19 Vaccine Moderna (Spikevax), Mrna-lnp, Tej Protein, Pf 2020-06-21 00:00:00 Completed Meredith Seybold - External Covid-19 Vaccine Moderna (Spikevax), Mrna-lnp, Tej Protein, Pf 2020-06-21 00:00:00 Completed Meredith Seybold - External Covid-19 Vaccine Moderna (Spikevax), Mrna-lnp, Tej Protein, Pf 2020-06-21 00:00:00 Completed Meredith Seybold - External Covid-19 Vaccine Moderna (Spikevax), Mrna-lnp, Tej Protein, Pf 2020-06-21 00:00:00 Completed Meredith Seybold - External Covid-19 Vaccine Moderna (Spikevax), Mrna-lnp, Tej Protein, Pf 2020-06-21 00:00:00 Completed Meredith Seybold - External Covid-19 Vaccine Moderna (Spikevax), Mrna-lnp, Tej Protein, Pf 2020-06-21 00:00:00 Completed Meredith Seybold - External Covid-19 Vaccine Moderna (Spikevax), Mrna-lnp, Tej Protein, Pf 2020-06-21 00:00:00 Completed Meredith Seybold - External Covid-19 Vaccine Moderna (Spikevax), Mrna-lnp, Tej Protein, Pf Unknown Completed Meredith Seybold - External Covid-19 Vaccine Moderna (Spikevax), Mrna-lnp, Tej Protein, Pf Unknown Completed Meredith Seybold - External Covid-19 Vaccine Moderna (Spikevax), Mrna-lnp, Tej Protein, Pf Unknown Completed Meredith Seybold - External Covid-19 Vaccine Moderna (Spikevax), Mrna-lnp, Tej Protein, Pf Unknown Completed Meredith Seybold - External Covid-19 Vaccine Moderna (Spikevax), Mrna-lnp, Tej Protein, Pf Unknown Completed Meredith Seybold - External Covid-19 Vaccine Moderna (Spikevax), Mrna-lnp, Tej Protein, Pf Unknown Completed Meredith Seybold - External Vital Signs Vital Name Observation Time Observation Value Comments S ource Systolic blood pressure 2023-09-03 19:53:00 132 mm[Hg] Meredith Seybo ld - External Diastolic blood pressure 2023-09-03 19:53:00 74 mm[Hg] Meredith Seybo ld - External Heart rate 2023-09-03 19:53:00 94 /min Kelse y Seybold - External Body temperature 2023-09-03 19:53:00 36.28 Stefany Meredith Seybold - External Respiratory rate 2023-09-03 19:53:00 15 /min Meredith Seybold - External Body height 2023-09-03 19:53:00 165.1 cm Joy ey Seybold - External Body weight 2023-09-03 19:53:00 107.956 kg Joy ey Seybold - External BMI 2023-09-03 19:53:00 39.61 kg/m2 Joy ey Seybold - External Systolic blood pressure 2023-08-03 20:23:00 124 mm[Hg] Meredith Seybo ld - External Diastolic blood pressure 2023-08-03 20:23:00 70 mm[Hg] Meredith Seybo ld - External Heart rate 2023-08-03 20:23:00 74 /min Kelse y Seybold - External Body temperature 2023-08-03 20:23:00 36.89 Stefany Meredith Seybold - External Respiratory rate 2023-08-03 20:23:00 18 /min Meredith Seybold - External Body height 2023-08-03 20:23:00 165.1 cm Joy ey Seybold - External Body weight 2023-08-03 20:23:00 105.688 kg Joy ey Seybold - External BMI 2023-08-03 20:23:00 38.77 kg/m2 Joy ey Seybold - External Oxygen saturation in Arterial blood by Pulse oximetry 2023-08-03 20:23:00 98 /min Meredith Seybo ld - External Systolic blood pressure 2023-01-08 12:52:00 128 mm[Hg] Meredith Seybo ld - External Diastolic blood pressure 2023-01-08 12:52:00 70 mm[Hg] Meredith Seybo ld - External Heart rate 2023-01-08 12:52:00 81 /min Kelse y Seybold - External Body temperature 2023-01-08 12:52:00 35.83 Stefany Meredith Seybold - External Respiratory rate 2023-01-08 12:52:00 14 /min Meredith Seybold - External Body height 2023-01-08 12:52:00 165.1 cm Joy ey Seybold - External Body weight 2023-01-08 12:52:00 99.791 kg Joy ey Seybold - External BMI 2023-01-08 12:52:00 36.61 kg/m2 Joy ey Seybold - External Systolic blood pressure 2022-12-23 21:02:00 104 mm[Hg] Meredith Seybo ld - External Diastolic blood pressure 2022-12-23 21:02:00 60 mm[Hg] Meredith Seybo ld - External Heart rate 2022-12-23 21:02:00 82 /min Kelse y Seybold - External Body temperature 2022-12-23 21:02:00 36.72 Stefany Meredith Seybold - External Respiratory rate 2022-12-23 21:02:00 144 /min Meredith Seybold - External Body height 2022-12-23 21:02:00 165.1 cm Joy ey Seybold - External Body weight 2022-12-23 21:02:00 102.059 kg Joy ey Seybold - External BMI 2022-12-23 21:02:00 37.44 kg/m2 Joy ey Seybold - External Systolic blood pressure 2022-12-17 16:12:00 124 mm[Hg] Meredith Seybo ld - External Diastolic blood pressure 2022-12-17 16:12:00 71 mm[Hg] Meredith Seybo ld - External Heart rate 2022-12-17 16:12:00 68 /min Kelse y Seybold - External Body temperature 2022-12-17 16:12:00 36.83 Stefany Meredith Seybold - External Respiratory rate 2022-12-17 16:12:00 20 /min Meredith Seybold - External Body height 2022-12-17 16:12:00 165.1 cm Joy ey Seybold - External Body weight 2022-12-17 16:12:00 103.42 kg Joy ey Seybold - External BMI 2022-12-17 16:12:00 37.94 kg/m2 Joy ey Seybold - External Oxygen saturation in Arterial blood by Pulse oximetry 2022-12-17 16:12:00 98 /min Meredith Seybo ld - External Systolic blood pressure 2022-11-18 21:13:00 122 mm[Hg] Meredith Seybo ld - External Diastolic blood pressure 2022-11-18 21:13:00 70 mm[Hg] Meredith Seybo ld - External Heart rate 2022-11-18 21:13:00 68 /min Kelse y Seybold - External Body temperature 2022-11-18 21:13:00 36.83 Stefany Meredith Seybold - External Respiratory rate 2022-11-18 21:13:00 16 /min Meredith Seybold - External Body height 2022-11-18 21:13:00 165.1 cm Joy ey Seybold - External Body weight 2022-11-18 21:13:00 102.059 kg Joy ey Seybold - External BMI 2022-11-18 21:13:00 37.44 kg/m2 Joy ey Seybold - External Oxygen saturation in Arterial blood by Pulse oximetry 2022-11-18 21:13:00 98 /min Merediht Seybo ld - External Systolic blood pressure 2022-10-21 19:29:00 128 mm[Hg] Meredith Seybo ld - External Diastolic blood pressure 2022-10-21 19:29:00 78 mm[Hg] Meredith Seybo ld - External Heart rate 2022-10-21 19:29:00 88 /min Kelse y Seybold - External Body temperature 2022-10-21 19:29:00 36.44 Stefany Meredith Seybold - External Respiratory rate 2022-10-21 19:29:00 16 /min Meredith Seybold - External Body height 2022-10-21 19:29:00 165.1 cm Joy ey Seybold - External Body weight 2022-10-21 19:29:00 101.969 kg Joy ey Seybold - External BMI 2022-10-21 19:29:00 37.41 kg/m2 Joy ey Seybold - External Oxygen saturation in Arterial blood by Pulse oximetry 2022-10-21 19:29:00 95 /min Meredith Seybo ld - External Body height 2022-10-02 17:56:00 165.1 cm Joy ey Seybold - External Body weight 2022-10-02 17:56:00 101.606 kg Joy ey Seybold - External BMI 2022-10-02 17:56:00 37.28 kg/m2 Joy ey Seybold - External Systolic blood pressure 2022-09-23 17:49:00 134 mm[Hg] Meredith Seybo ld - External Diastolic blood pressure 2022-09-23 17:49:00 87 mm[Hg] Meredith Seybo ld - External Heart rate 2022-09-23 17:49:00 84 /min Kelse y Seybold - External Body temperature 2022-09-23 17:49:00 36.61 Stefany Meredith Seybold - External Respiratory rate 2022-09-23 17:49:00 15 /min Meredith Seybold - External Body height 2022-09-23 17:49:00 165.1 cm Joy ey Seybold - External Body weight 2022-09-23 17:49:00 101.606 kg Joy ey Seybold - External BMI 2022-09-23 17:49:00 37.28 kg/m2 Joy ey Seybold - External Oxygen saturation in Arterial blood by Pulse oximetry 2022-09-23 17:49:00 99 /min Meredith Seybo ld - External Systolic blood pressure 2022-08-26 16:07:00 126 mm[Hg] Meredith Seybo ld - External Diastolic blood pressure 2022-08-26 16:07:00 64 mm[Hg] Meredith Seybo ld - External Heart rate 2022-08-26 16:07:00 87 /min Kelse y Seybold - External Respiratory rate 2022-08-26 16:07:00 16 /min Meredith Seybold - External Body height 2022-08-26 16:07:00 165.1 cm Joy ey Seybold - External Body weight 2022-08-26 16:07:00 102.241 kg Joy ey Seybold - External BMI 2022-08-26 16:07:00 37.51 kg/m2 Joy ey Seybold - External Oxygen saturation in Arterial blood by Pulse oximetry 2022-08-26 16:07:00 96 /min Meredith Seybo ld - External Systolic blood pressure 2022-07-29 19:50:00 120 mm[Hg] Meredith Seybo ld - External Diastolic blood pressure 2022-07-29 19:50:00 78 mm[Hg] Meredith Seybo ld - External Heart rate 2022-07-29 19:50:00 82 /min Teresita y Seybold - External Body temperature 2022-07-29 19:50:00 37.17 Stefany Meredith Seybold - External Respiratory rate 2022-07-29 19:50:00 15 /min Meredith Seybold - External Body height 2022-07-29 19:50:00 165.1 cm Joy ey Seybold - External Body weight 2022-07-29 19:50:00 103.42 kg Joy ey Seybold - External BMI 2022-07-29 19:50:00 37.94 kg/m2 Joy ey Seybold - External Oxygen saturation in Arterial blood by Pulse oximetry 2022-07-29 19:50:00 99 /min Meredith Colladoybo ld - External Systolic blood pressure 2019-10-06 20:46:00 134 mm[Hg] [facility] Diastolic blood pressure 2019-10-06 20:46:00 92 mm[Hg] [facility] Heart rate 2019-10-06 20:43:00 66 /[facility] Body temperature 2019-10-06 20:43:00 37.61 Stefany [facility] Respiratory rate 2019-10-06 20:43:00 17 /min [facility] Body height 2019-10-06 20:43:00 166.4 cm [facility] Body weight 2019-10-06 20:43:00 94.802 kg [facility] BMI 2019-10-06 20:43:00 34.25 kg/m2 [facility] Oxygen saturation in Arterial blood by Pulse oximetry 2019-10-06 20:43:00 99 /min [facility] Procedures Procedure Date / Time Performed Performing Clinicia n Source URINALYSIS NONAUTO W/O SCOPE 2022-12-17 16:21:20 Heron Dubon - External Encounters Start Date/Time End Date/Time Encounter Type Admission Type Attending [facility] Facility Care Department Encounter ID Source 2023-10-09 00:00:00 2023-10-09 00:00:00 Outpatient MILLER KARIMI [id number] Meredith Montoya 2023-09-03 15:00:00 2023-09-03 15:00:00 Outpatient MILLER KARIMI [id number] Meredith Montoya 2023-08-31 00:00:00 2023-08-31 00:00:00 Outpatient MD MEREDITH JOE [id number] Meredith osvaldo 2023-08-17 00:00:00 2023-08-17 00:00:00 Outpatient MD MEREDITH JOE [id number] Meredith Montoya 2023-08-17 00:00:00 2023-08-17 00:00:00 Outpatient MILLER KARIMI [id number] Meredith Montoya 2023-08-06 00:00:00 2023-08-06 00:00:00 Outpatient MILLER KARIMI [id number] Meredith Montoya 2023-08-03 16:20:00 2023-08-03 16:20:00 Outpatient LABGlenis BEASLEY [id number] Meredith Montoya 2023-08-03 15:30:00 2023-08-03 15:30:00 Outpatient MILLER KARIMI [id number] Meredith Montoya 2023-01-13 00:00:00 2023-01-13 00:00:00 Outpatient GC_GCBZW_Ka diyala_S [facility] [id number] [facility] 2023-01-13 00:00:00 2023-01-13 00:00:00 Outpatient GC_GCBZW_Ka diyala_S PRIV PRIV [id number] [facility] 2023-01-08 08:00:00 2023-01-08 08:00:00 Outpatient MILLER KARIMI MEREDITH BEASLEY [id number] [facility] 2023-01-06 00:00:00 2023-01-06 00:00:00 Outpatient TREV MILLER MEREDITH BEASLEY [id number] [facility] 2022-12-29 16:15:00 2022-12-29 16:15:00 Outpatient LAB90 MEREDITH BEASLEY [id number] [facility] 2022-12-29 00:00:00 2022-12-29 00:00:00 Outpatient HERON DUBON MEREDITH BEASLEY [id number] [facility] 2022-12-23 16:00:00 2022-12-23 16:00:00 Outpatient TREV MILLER MEREDITH BEASLEY [id number] [facility] 2022-12-19 16:00:00 2022-12-19 16:00:00 Outpatient TREV MILLER MEREDITH BEASLEY [id number] [facility] 2022-12-19 00:00:00 2022-12-19 00:00:00 Outpatient HERON DUBON MEREDITH BEASLEY [id number] [facility] 2022-12-17 16:25:00 2022-12-17 16:25:00 Outpatient LAB90 MEREDITH BEASLEY [id number] [facility] 2022-12-17 11:15:00 2022-12-17 11:15:00 Outpatient HERON DUBON MEREDITH BEASLEY [id number] [facility] 2022-12-15 00:00:00 2022-12-15 00:00:00 Outpatient PATRICK AGUILERA [id number] [facility] 2022-11-27 00:00:00 2022-11-27 00:00:00 Outpatient GC_GCBZW_Ka diyala_S PRIV PRIV [id number] [facility] 2022-11-26 00:00:00 2022-11-26 00:00:00 Outpatient GC_GCBZW_Ka diyala_S PRIV PRIV [id number] [facility] 2022-11-18 16:30:00 2022-11-18 16:30:00 Outpatient MILLER KARIMI [id number] [facility] 2022-11-04 00:00:00 2022-11-04 00:00:00 Outpatient GC_GCBZW_Ka diyala_S PRIV PRIV [id number] [facility] 2022-11-03 00:00:00 2022-11-03 00:00:00 Outpatient HERON DUBON [id number] [facility] 2022-10-30 00:00:00 2022-10-30 00:00:00 Outpatient MILLER KARIMI [id number] [facility] 2022-10-29 00:00:00 2022-10-29 00:00:00 Outpatient GC_GCBZW_Ka diyala_S PRIV PRIV [id number] [facility] 2022-10-21 14:30:00 2022-10-21 14:30:00 Outpatient MILLER KARIMI [id number] [facility] 2022-10-02 13:00:00 2022-10-02 13:00:00 Outpatient BRIGETTE GUTIERREZ [id number] [facility] 2022-10-02 00:00:00 2022-10-02 00:00:00 Outpatient MD MEREDITH JOE [id number] [facility] 2022-09-26 00:00:00 2022-09-26 00:00:00 Outpatient MILLER KARIMI [id number] [facility] 2022-09-23 13:45:00 2022-09-23 13:45:00 Outpatient ISACC BEASLEY [id number] [facility] 2022-09-23 13:00:00 2022-09-23 13:00:00 Outpatient [facility]ARIM[facility] [id number] [facility]22-[facility] 00:00:00 2022-09-23 00:00:00 Outpatient MILLER KARIMI [facility]EDITH BEASLEY [id number] [facility] 2022-08-26 11:00:00 2022-08-26 11:00:00 Outpatient MILLER KARIMIOSMANI BEASLEY [id number] [facility] 2022-07-29 15:00:00 2022-07-29 15:00:00 Outpatient RAFFY HERON [facility]EDITH BEASLEY [id number] [facility] 2022-07-29 00:00:00 2022-07-29 00:00:00 Outpatient MEREDITH TAVAREZ [id number] [facility] [facility] 2021-12-06 10:00:00 2021-12-06 10:30:00 Office Visit Farheen Morgan Hartman [id number] 350.1.13.13 1.2.7.2.686 [id number] Meredith [facility] 2019-10-07 00:00:00 2019-10-07 00:00:00 Letter (Out) Doctor Unassigned, Garvin [facility] 1.20.114 350.1.13.10 4.2.7.2.686 [id number] [facility] 2019-10-07 00:00:00 2019-10-07 00:00:00 Letter (Out) Stanton Lentz [facility] 1.2840.114 350.1.13.10 4.2.7.2.686 [id number] [facility] 2019-10-07 00:00:00 2019-10-07 00:00:00 Telephone Rosina Naranjo [facility] 1.2840.114 350.1.13.10 4.2.7.2.686 [id number] [facility] 2019-10-06 15:17:18 2019-10-06 16:11:22 Urgent Care Pob1, Acute Care Clinic Anene, Puja [facility] Office Building [address] [id number] 350.1.13.10 4.2.7.2.686 [id number] [facility] 2019-10-06 15:20:00 2019-10-06 15:20:00 Outpatient R [facility] [id number] [facility] Results Test Description Test Time Test Comments Results Result Co mments Source Meredith Colladoosvaldo - ExternalSCR MAMM BILATERAL TRISTON CAD [id number] 12:39:51 Name: Vicki : 1970 Sex: F - SCR MAMM BILATERAL TRISTON CAD DIGITALBILATERAL DIGITAL SCREENING MAMMOGRAM 3D/2D WITH CAD: 05/06/2022LINICAL: Asymptomatic. Digital breast tomosynthesis was performed in addition to routine CC and MLO views. Current mammographic images were evaluated by [employer] CAD (computer-aided detection) software. Comparison is made to examdated 04/18/2020 mammogram - [facility]. There are scattered fibroglandular tissues in both breasts. There is a benign appearing focal asymmetry in the right breast. No suspicious mass, architectural distortion, malignant type calcification, or lymph node abnormality detected. Breastarchitecture is stable compared to prior exams.IMPRESSION: BENIGNThere is no mammographic evidence of malignancy. Resume annual screening mammography in one year. (05/07/2023) Fraheen gonzalez g/penrad:05/06/2022 12:39:51 Attending Technologist: Angela Roberson MM, [facility] MammographyImaging Technologist: Sunita Ferrara MM, [facility] Mammographyletter sent: BIRADS 1-2 Normal Mammogram BI-RADS: 2 BenignSCR MAMM BILATERAL TRISTON CAD [id number] 12:39:51 Name: Vicki : 1970 Sex: F - SCR MAMM BILATERAL TRISTON CAD DIGITALBILATERAL DIGITAL SCREENING MAMMOGRAM 3D/2D WITH CAD: 05/06/2022LINICAL: Asymptomatic. Digital breast tomosynthesis was performed in addition to routine CC and MLO views. Current mammographic images were evaluated by [employer] CAD (computer-aided detection) software. Comparison is made to examdated 04/18/2020 mammogram - [facility]. There are scattered fibroglandular tissues in both breasts. There is a benign appearing focal asymmetry in the right breast. No suspicious mass, architectural distortion, malignant type calcification, or lymph node abnormality detected. Breastarchitecture is stable compared to prior exams.IMPRESSION: BENIGNThere is no mammographic evidence of malignancy. Resume annual screening mammography in one year. (05/07/2023) Farheen gonzalez g/penrad:05/06/2022 12:39:51 Attending Technologist: Angela Roberson MM, [facility] MammographyImaging Technologist: Sunita Ferrara MM, [facility] Mammographyletter sent: BIRADS 1-2 Normal Mammogram BI-RADS: 2 BenignSCR MAMM BILATERAL TRISTON CAD [id number] 17:29:57 Name: Vicki : 1970 Sex: F - SCR MAMM BILATERAL TRISTON CAD DIGITALBILATERAL DIGITAL SCREENING MAMMOGRAM 3D/2D WITH CAD: 04/18/2020LINICAL: Asymptomatic. Digital breast tomosynthesis was performed in addition to routine CC and MLO views. Current mammographic images were evaluated by either a [employer] or a [employer] CAD (computer aided detection system). No prior exams were available for comparison. There are scattered fibroglandular tissues in both breasts. There are benign densities in both breasts. No suspicious mass, architectural distortion, malignant type calcification, or lymph node abnormality detected. IMPRESSION: BENIGNThere is no mammographic evidence of malignancy. Resume annual screening mammography in one year. Farheen Simms M.D. sccinthia/penrad:04/30/2020 17:29:57 Machine Cloth Trimmer: Gianna Parekh MM, [facility] Mammographylettersent: BIRADS 1-2 Normal Mammogram BI-RADS: 2 Benign Notes Date/Time Note Provider Source 2023-09-03 14:55:34 0602-09-34Q43:55:34F ormatting of this note is different from the original.Chief ComplaintPatient presents withFollow-upFollow up on insomnia [place] [address]-5Rsjkp GgwqON5340-19-06L62:55:52Nurse NoteTXT1.2.840.305382.1.13.131.2.7.2. 189144|[id number] for patient ibea03948-4Toaxb NoteLNNARRATIVEFormatted C-CDA narrative [facility] [place], [place] [id number] 5110-32-82A26:55:521.2.840.822737.1.7 2.3.15|1.2.840.669994.1.13.131.2.7.2. [id number] [facility] 2023-08-03 15:31:07 4134-25-12Z35:31:07F ormatting of this note is different from the original.Chief ComplaintPatient presents withReferralNeeds referral to cardiology and Blood work. C/O being fatigued all the time she thinks it might be anxiety..BIB ReedN 52285-3Liviu AdtmAX7848-79-21T33:31:22Nurse NoteTXT1.2.840.107988.1.13.131.2.7.2. 286084|[id number] for patient iazh00470-1Zyclu NoteLNNARRATIVEFormatted C-CDA narrative textAscension [facility] [facility].[id number] 4708-15-20N88:31:221.2.840.979461.1.7 2.3.15|1.2.840.163298.1.13.131.2.7.2. [id number] [facility] 2022-12-23 16:05:39 1195-28-05V75:05:39F ormatting of this note is different from the original.Chief Complaint Patient presents with Follow-up [place] [address]-0Nrwqn WzibXP5852-46-61Y84:06:02Nurse NoteTXT1.2.840.229619.1.13.131.2.7.2. 744385|[id number] for patient isjc27635-4Uhykh NoteSpooner Health[address] [facility] [id number] 6885-99-74Y41:06:021.2.840.896449.1.7 2.3.15|1.2.840.988783.1.13.131.2.7.2. [id number] [facility] 2022-11-18 16:17:28 9131-30-14W25:17:28F ormatting of this note might be different from the original.Patient is here for follow up, VSS, medications reconciled. 37714-5Yijzi KopnQP0795-88-80B62:18:28Nurse NoteTXT1.2.840.036491.1.13.131.2.7.2. 345951|[id number] for patient mfmo08147-6Shpoe NoteLNAscension Eagle [facility] [facility] [id number] 6853-09-61T43:18:281.2.840.349525.1.7 2.3.15|1.2.840.262956.1.13.131.2.7.2. [id number] [facility] 2022-10-21 14:34:52 8117-27-09V57:34:52F ormatting of this note might be different from the original.Patient is here for physical and f/u on medications. VSS, medications reconciled. No concerns voiced at this time. 23681-9Tvfwx GcenSK0013-76-32Z22:18:47Nurse NoteTXT1.2.840.466760.1.13.131.2.7.2. 895980|[id number] for patient [facility] [facility].[id number] 3887-03-82F37:18:471.2.840.757238.1.7 2.3.15|1.2.840.740724.1.13.131.2.7.2. [id number] [facility]"
[2023-10-13] MEDS ORDERED: MORPHINE 4 MG/ML SYR ONE (19:12)
[2023-10-13] MEDS ORDERED: ONDANSETRON 4 MG/2 ML VIAL ONE (19:12)
[2023-10-13 19:29] LABS: Absolute Basophils 0.1 K/uL (0-0.5); Absolute Eosinophils 0.2 K/uL (0-0.5); Absolute Lymphocytes (CBC) 3.3 K/uL (0.7-4.9); Absolute Monocytes 0.7 K/uL (0.1-1.3); Absolute Neutrophil 4.1 K/uL (1.8-8.0); Eosinophils % 2.9 % (0-4.4); Hematocrit 40.6 % (36.0-45.0); Hemoglobin 13.7 g/dL (12.0-15.0); MCH 31.1 pg (27.0-35.0); MCHC 33.7 g/dL (32.0-36.0); MCV 92.3 fL (80-100); MPV 6.6 fL (7.6-11.3); Monocytes % 8.4 % (3.3-12.3); Neutrophils % 48.7 % (41.7-73.7); Nucleated Red Blood Cells % 0.2 % (0-0); Platelets 277 thou/uL (152-406); RBC Red Blood Cell Count 4.39 M/uL (3.86-4.86); Red Cell Distribution Width 14.8 % (12.1-15.2)
[2023-10-13 19:30] LABS: Protime INR 1.09
--- NOTE | 2023-10-13 19:39 | RAD REPORT ---
EXAM DESCRIPTION: Octavia Single View10/13/2023 7:23 pm CLINICAL HISTORY: Chest pain COMPARISON: none FINDINGS: The lungs appear clear of acute infiltrate. The heart is normal size IMPRESSION: No acute abnormalities displayed
[2023-10-13 21:20] LABS: Anion Gap 10.7 mEq/L (5.0-15.0); Potassium 3.7 mEq/L (3.5-5.1); Troponin High Sensitivity 6.4 pg/mL (<58.9)
--- NOTE | 2023-10-13 21:38 | ER ---
Nurse's Notes [facility] Name: Vicki Peace Age: 52 yrs Sex: Female : 1970 Arrival Date: 10/13/2023 Time: 18:49 Bed 2 Private MD: Diagnosis: Chest pain, unspecified;Anxiety disorder, unspecified Presentation: 10/12 19:04 Chief complaint: Patient states: Pt c/o sudden onset of right shoulder, neck, tl4 epigastric, left side chest pain since 1200 today. Coronavirus screen: At this time, the client does not indicate any symptoms associated with coronavirus-19. Ebola Screen: No symptoms or risks identified at this time. Initial Sepsis Screen: Does the patient meet any 2 criteria? No. Patient's initial sepsis screen is negative. Does the patient have a suspected source of infection? No. Patient's initial sepsis screen is negative. Risk Assessment: Do you want to hurt yourself or someone else? Patient reports no desire to harm self or others. Onset of symptoms was October 13, 2023 at 12:00. 19:04 Method Of Arrival: Ambulatory tl4 19:04 Acuity: MARI 2 tl4 Triage Assessment: 19:07 General: Appears uncomfortable, Behavior is calm, cooperative. Pain: Complains of pain tl4 in chest and right arm. EENT: No signs and/or symptoms were reported regarding the EENT system. Neuro: Level of Consciousness is awake, alert, obeys commands, Oriented to person, place, time, situation, Moves all extremities. Full function Gait is steady, Speech is normal. Cardiovascular: Reports chest pain, Denies diaphoresis, fatigue, shortness of breath, Capillary refill < 3 seconds Patient's skin is warm and dry. Respiratory: Airway is patent Respiratory effort is even, unlabored, Respiratory pattern is regular, symmetrical, Breath sounds are clear bilaterally. GI: No signs and/or symptoms were reported involving the gastrointestinal system. : No signs and/or symptoms were reported regarding the genitourinary system. Derm: No signs and/or symptoms reported regarding the dermatologic system. Musculoskeletal: No signs and/or symptoms reported regarding the musculoskeletal system. 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 - Infectious Disease History:: Denies. - Social history:: Smoking status: Patient denies any tobacco usage or history of. Screenin:33 [facility] ED Fall Risk Assessment (Adult) History of falling in the last 3 months, bm8 including since admission No falls in past 3 months (0 pts) Confusion or Disorientation No (0 pts) Intoxicated or Sedated No (0 pts) Impaired Gait No (0 pts) Mobility Assist Device Used No (0 pt) Altered Elimination No (0 pt) Score/Fall Risk Level 0 - 2 = Low Risk Oriented to surroundings, Maintained a safe environment, Educated pt \T\ family on fall prevention, incl call for assistance when getting out of bed, Assessed \T\ reinforced patient's understanding of fall precautions, Hourly rounding (assess needs \T\ fall precautionary measures) done, Used ambulatory aids as needed (educated on \T\ assisted with). Abuse screen: Denies threats or abuse. Nutritional screening: No deficits noted. Tuberculosis screening: No symptoms or risk factors identified. Assessment: 19:33 Reassessment: Patient appears in no apparent distress at this time. Patient and/or bm8 family updated on plan of care and expected duration. Pain level reassessed. Patient is alert, oriented x 3, equal unlabored respirations, skin warm/dry/pink. General: Appears distressed, uncomfortable, Behavior is cooperative, appropriate for age, anxious. Pain: Complains of pain in right arm and chest Pain does not radiate. Pain currently is 9 out of 10 on a pain scale. Quality of pain is described as pressure, Pain began 4 hours ago. Neuro: No deficits noted. Level of Consciousness is awake, alert, obeys commands, Oriented to person, place, time, situation, Appropriate for age. Cardiovascular: Reports chest pain, Heart tones S1 S2 present Capillary refill < 3 seconds Patient's skin is warm and dry. Rhythm is sinus rhythm. Respiratory: No deficits noted. Airway is patent Trachea midline Respiratory effort is even, unlabored, Respiratory pattern is regular, symmetrical, Breath sounds are clear bilaterally. GI: No signs and/or symptoms were reported involving the gastrointestinal system. : No signs and/or symptoms were reported regarding the genitourinary system. EENT: No signs and/or symptoms were reported regarding the EENT system. Derm: No signs and/or symptoms reported regarding the dermatologic system. Musculoskeletal: No signs and/or symptoms reported regarding the musculoskeletal system. 20:40 Reassessment: Patient appears in no apparent distress at this time. Patient and/or bm8 family updated on plan of care and expected duration. Pain level reassessed. Patient is alert, oriented x 3, equal unlabored respirations, skin warm/dry/pink. pt reports feeling very sleepy Patient denies pain at this time. Patient states feeling better. Patient states symptoms have improved. 21:40 Reassessment: Patient appears in no apparent distress at this time. No changes from jw7 previously documented assessment. Patient and/or family updated on plan of care and expected duration. Pain level reassessed. Patient is alert, oriented x 3, equal unlabored respirations, skin warm/dry/pink. Vital Signs: 19:04 BP 164 / 86; Pulse 91; Resp 21; Temp 98.1(O); Pulse Ox 100% on R/A; Weight 102.06 kg; tl4 Height 5 ft. 5 in. ; Pain 8/10; 19:33 BP 138 / 82; Pulse 75; Resp 12; Temp 98.1; Pulse Ox 97% ; Pain 9/10; bm8 20:40 BP 117 / 82; Pulse 67; Resp 12; Temp 98.1; Pulse Ox 97% on 2 lpm NC; Pain 0/10; bm8 21:40 BP 100 / 74; Pulse 65; Resp 12 S; Pulse Ox 97% on R/A; jw7 19:04 Body Mass Index 37.44 (102.06 kg, 165.1 cm) tl4 19:04 Pain Scale: Adult tl4 19:33 Pain Scale: Adult bm8 20:40 Pain Scale: Adult bm8 [place] Coma Score: 19:33 Eye Response: spontaneous(4). Motor Response: obeys commands(6). Verbal Response: bm8 oriented(5). Total: 15. 20:40 Eye Response: spontaneous(4). Motor Response: obeys commands(6). Verbal Response: bm8 oriented(5). Total: 15. ED Course: 18:54 Patient arrived in ED. tl4 18:59 Pillo Anders MD is Attending Physician. ec2 19:04 Patient has correct armband on for positive identification. Placed in gown. Bed in low tl4 position. Call light in reach. Side rails up X 1. Provided Education on: ed process, call nunez. Client placed on continuous cardiac and pulse oximetry monitoring. NIBP monitoring applied. choir member on. Door closed. Noise minimized. Moved to private room. Warm blanket given. 19:06 Triage completed. tl4 19:10 Arm band placed on. jw7 19:25 XRAY Chest (1 view) In Process Unspecified. EDMS 19:32 Lázaro Rausch, RN is Primary Nurse. bm8 19:33 No provider procedures requiring assistance completed. Initial lab(s) drawn, by hedy strong sent to lab. EKG done, by ED staff, reviewed by Lázaro Rausch RN. Inserted saline lock: 20 gauge in left forearm, using aseptic technique. Blood collected. Oxygen administration via nasal cannula \T\ 2L/min. 21:09 Attending Physician role handed off by Pillo Anders MD sp4 21:09 Julian Negron MD is Attending Physician. sp4 21:42 IV discontinued, intact, bleeding controlled, No redness/swelling at site. Pressure jw7 dressing applied. Administered Medications: 19:10 CANCELLED (Physician Discretion): morphineor iv 4 mg IVP once over 4 mins ec2 19:10 CANCELLED (Physician Discretion): ondansetron 4 mg IVP once; over 2 minutes ec2 19:32 Drug: Droperidol IVP 2.5 mg IVP once Route: IVP; Site: left forearm; bm8 20:41 Follow up: Response: No adverse reaction bm8 19:41 Drug: morphine IVP or IV 4 mg IVP once over 4 mins Route: IVP; Infused Over: 4 mins; bm8 Site: left forearm; 20:41 Follow up: Response: No adverse reaction bm8 19:41 Drug: Ondansetron IVP 4 mg IVP once; over 2 minutes Route: IVP; Site: left forearm; bm8 20:41 Follow up: Response: No adverse reaction bm8 Medication: 19:33 VIS not applicable for this client. bm8 Outcome: 21:37 Discharge ordered by . sandor 21:41 Discharged to home ambulatory, jw7 21:41 Condition: stable 21:41 Discharge instructions given to patient, Instructed on discharge instructions, follow up and referral plans. Demonstrated understanding of instructions, follow-up care, 21:43 Patient left the ED. jw7 Signatures: Dispatcher [employer] Mara Canela RN RN jw7 Julian Negron MD MD sp4 Pillo Anders MD MD ec2 Rosalio Martinez RN RN tl4 Lázaro Rausch, RN RN bm8
--- NOTE | 2023-10-13 21:38 | EDPHYS ---
Physician Documentation [facility] Name: Vicki Benito Age: 52 yrs Sex: Female : 1970 Arrival Date: 10/13/2023 Time: 18:49 Bed 2 Private MD: ED Physician Julian Negron HPI: 10/12 19:08 This 52 yrs old Female presents to ER via Ambulatory with complaints of Chest ec2 Pain. 19:08 Patient with history of hypertension, hyperlipidemia, anxiety arrives today for chest ec2 pain. Patient states that she "does not feel well ". States that she has general body numbness, bilateral lower extremities that feel "light". Reports no exertional component, denies any nausea or vomiting, denies any cough and cold symptoms.. 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 - Infectious Disease History:: Denies. - Social history:: Smoking status: Patient denies any tobacco usage or history of. ROS: 19:08 Constitutional: as per hpi ec2 Exam: 19:08 Constitutional: GEN: NAD Head: atraumatic Eyes: EOMI Ears: External ears are ec2 normal. CV: regular rate LUNGS: no respiratory distress ABD: non-distended SKIN: no evidence of rashes MSK: no evidence of trauma NEURO: moves all extremities equally Vital Signs: 19:04 BP 164 / 86; Pulse 91; Resp 21; Temp 98.1(O); Pulse Ox 100% on R/A; Weight 102.06 kg; tl4 Height 5 ft. 5 in. ; Pain 8/10; 19:33 BP 138 / 82; Pulse 75; Resp 12; Temp 98.1; Pulse Ox 97% ; Pain 9/10; bm8 20:40 BP 117 / 82; Pulse 67; Resp 12; Temp 98.1; Pulse Ox 97% on 2 lpm NC; Pain 0/10; bm8 21:40 BP 100 / 74; Pulse 65; Resp 12 S; Pulse Ox 97% on R/A; jw7 19:04 Body Mass Index 37.44 (102.06 kg, 165.1 cm) tl4 19:04 Pain Scale: Adult tl4 19:33 Pain Scale: Adult bm8 20:40 Pain Scale: Adult bm8 [place] Coma Score: 19:33 Eye Response: spontaneous(4). Motor Response: obeys commands(6). Verbal Response: bm8 oriented(5). Total: 15. 20:40 Eye Response: spontaneous(4). Motor Response: obeys commands(6). Verbal Response: bm8 oriented(5). Total: 15. MDM: 18:59 Patient medically screened. ec2 19:08 Data reviewed: vital signs. ED course: Patient arrives today for evaluation of chest ec2 pain along with general body aches along with chest pain, whole body numbness. Will obtain lab work, chest x-ray, cardiac profile. Differential diagnosis includes anxiety, electrolyte disturbances, urinary tract infection. . 19:24 ED course: EKG independently reviewed and interpreted by me, shows normal sinus rhythm, ec2 rate of 79, no acute ST segment elevations, intervals are nonconcerning. . 19:44 ED course: CBC reassuring, chest x-ray shows no acute intrathoracic process. . ec2 21:09 Transition of care: After a detail discussion of the patient's case, care is ec2 transferred to Julian Negron MD. ED course: Patient signed out to oncoming physician with pending lab work and reassessment.. 21:36 Differential diagnosis: acute pericarditis, anxiety, coronary artery disease chest wall sp4 pain, congestive heart failure costochondritis. HEART Score: History: Slightly Suspicious (0), ECG: Normal (0), Age: > 45 and < 65 years (1), Risk Factors: 1 or 2 risk factors (1), Troponin: < or = 1 x Normal Limit (0), Total Score = 2. ED course: Workup today is unremarkable. EKG normal troponin is normal. Symptom onset was at noon today. No sign of acute coronary syndrome. Patient was advised to keep her appointment with visual merchandising coordinator here in town for proper workup including echocardiogram and a stress test. At this time stable for discharge home.. 21:41 ED course: Name: VICKI BENITO Acct Number: [id number] Exam Date: 10/13/23 EXAM sp4 DESCRIPTION: Octavia Single View10/13/2023 7:23 pm CLINICAL HISTORY: Chest pain COMPARISON: none FINDINGS: The lungs appear clear of acute infiltrate. The heart is normal size IMPRESSION: No acute abnormalities displayed. 10/12 18:59 Order name: Basic Metabolic Panel; Complete Time: 21:29 ec2 10/12 18:59 Order name: CBC with Diff; Complete Time: 19:43 ec2 10/12 18:59 Order name: NT PRO-BNP; Complete Time: 21:29 ec2 10/12 18:59 Order name: PT-INR; Complete Time: 19:43 ec2 10/12 18:59 Order name: Troponin HS; Complete Time: 21:29 ec2 10/12 18:59 Order name: XRAY Chest (1 view); Complete Time: 19:43 ec2 10/12 18:59 Order name: Cardiac monitoring; Complete Time: 19:04 ec2 10/12 18:59 Order name: EKG - Nurse/Tech; Complete Time: 19:33 ec2 10/12 18:59 Order name: IV Saline Lock; Complete Time: 19:33 ec2 10/12 18:59 Order name: Labs collected and sent; Complete Time: 19:33 ec2 10/12 18:59 Order name: O2 Per Protocol; Complete Time: 19:04 ec2 10/12 18:59 Order name: O2 Sat Monitoring; Complete Time: 19:04 ec2 Administered Medications: 19:10 CANCELLED (Physician Discretion): morphineor iv 4 mg IVP once over 4 mins ec2 19:10 CANCELLED (Physician Discretion): ondansetron 4 mg IVP once; over 2 minutes ec2 19:32 Drug: Droperidol IVP 2.5 mg IVP once Route: IVP; Site: left forearm; bm8 20:41 Follow up: Response: No adverse reaction bm8 19:41 Drug: morphine IVP or IV 4 mg IVP once over 4 mins Route: IVP; Infused Over: 4 mins; bm8 Site: left forearm; 20:41 Follow up: Response: No adverse reaction bm8 19:41 Drug: Ondansetron IVP 4 mg IVP once; over 2 minutes Route: IVP; Site: left forearm; bm8 20:41 Follow up: Response: No adverse reaction bm8 Disposition Summary: 10/13/23 21:37 Discharge Ordered Notes: Please attend office visit with Delivery Tech as planned Location: Home sp4 Problem: new sp4 Symptoms: have improved sp4 Condition: Stable sp4 Diagnosis - Chest pain, unspecified sp4 - Anxiety disorder, unspecified sp4 Followup: ec2 - With: Private Physician - When: - Reason: Re-evaluation by your physician Discharge Instructions: - Discharge Summary Sheet ec2 - Nonspecific Chest Pain, Adult, [id number] ec2 Forms: - Patient Portal Instructions sp4 Signatures: Dispatcher [employer] Julian Post MD MD sp4 Pillo Anders MD MD ec2 Rosalio Martinez RN RN tl4 Lázaro Rausch RN RN bm8 Corrections: (The following items were deleted from the chart) 19:00 19:00 BASIC METABOLIC PANEL+C.LAB.BRZ ordered. EDMS EDMS 19:00 19:00 CBC+H.LAB.BRZ ordered. EDMS EDMS 19:00 19:00 PROBNP+C.LAB.BRZ ordered. EDMS EDMS 19:00 19:00 PROTIME (+INR)+COAG.LAB.BRZ ordered. EDMS EDMS 19:00 19:00 Troponin High Sensitivity+C.LAB.BRZ ordered. EDMS EDMS 19:00 19:00 Chest Single View+RAD.RAD.BRZ ordered. EDMS EDMS 19:10 18:59 morphine IVP or IV 4 mg IVP once over 4 mins ordered. ec2 ec2 19:10 18:59 Ondansetron IVP 4 mg IVP once; over 2 minutes ordered. ec2 ec2
[2023-10-13 21:53] VITALS: BP 100/74; TEMP 98.1; O2SAT 97
== END 2023-10-13 21:43 | disposition home or self-care (01) ==
LOC: ER 18:49
DX: R07.9 Chest pain, unspecified (principal); F41.9 Anxiety disorder, unspecified; I10 Essential (primary) hypertension; Z88.0 Allergy status to penicillin; Z88.2 Allergy status to sulfonamides
CPT/HCPCS: 85025; 80048; 36415; 85610; 84484; 83880; 71045; J2405; 93005

== ENCOUNTER 2023-11-14 00:05 | Emergency (ER) | payer OTHER ==
--- OUTSIDE RECORDS SUMMARY | 2023-11-14 00:09 | XMS REPORT | Continuity of Care Document ---
Author Name Unknown Address [address] [facility] [address] Ramon. [address] [place] [address] [facility] thconnect Address [address] [facility] [address] Ramon. [address] [place] [address] Care Team Providers Care Can Cleaner Name Role Phone TREV MILLER Attending Clinician Unavailable HERON DUBON Attending Clinician Unavailable MD JEOVANY Attending Clinician Unavailab le LAB90 Attending Clinician Unavailable GC_GCBZW_Kadiyala_S Attending Clinician Unavaila PATRICK Gonzalez Attending Clinician Unavailable BRIGETTE GUTIERREZ Attending Clinician UnavailMEREDITH Spangler [facility] Attending Clinicia n Vanessa Morgan MD, Farheen Del Rio Attending Clinician [phone] Doctor Unassigned, [place] Attending Clinician U jelani Lentz MD, Stanton Ayala Attending Clinician [phone] Rosina Naranjo RN Attending Clinician Unavailable Pob[facility], Acute Care Clinic Attending Clinician UnaPuja Black Attending Clinician [phone] PUJA GERARDO Attending Clinician Unavailable GC_GCBZW_Kadiyala_S Admitting Clinician Unavaila ble Payers Payer Name Policy Type Policy Number Effective Date Expirati on Date Source [id number] DEGREE BENEFIT 2 [id number] 2022 00:00:00 [facility] [employer] PLANS - OPEN ACCESS [id number] 2022 00:00:00 Problems Condition Name Condition Details [...] problems No known active problems Disease Univers [facility] Allergies, Adverse Reactions, Alerts Allergy Name Allergy Type Status Severity Reaction(s) Onset Date Inactive Date Treating Clinician Comments Source Sulfa Drugs Propensi ty to adverse reaction s Active Rash 04-13 00:00: 00 Meredith Seybold - Externa l Penicill ins Propensi ty to adverse reaction s Active Anaphylaxis 04-13 00:00: 00 Meredith Seybold - Externa l NO KNOWN ALLERGIE S Drug Class Active [facility] Social History Social Habit Start Date Stop Date Quantity Comments Source Gender identity 2022-07-29 08:05:17 Identifies as female gender (finding) Meredith Monotya - External Sexual orientation 2022-07-29 08:05:17 Heterosexual (finding) Meredith Montoya - External History of tobacco use Current smoker Meredith washington - External Exposure to SARS-CoV-2 (event) Not sure [facility] History of Social function 2023-01-08 00:00:00 2023-01-08 00:00:00 Meredith Mnotoya - External Tobacco Comment 2019-10-06 00:00:00 2019-10-06 00:00:00 terrye [facility] Sex assigned at 1970 00:00:00 1970 00:00:00 F Meredith Montoya - External Smoking Status Start Date Stop Date Source Ex-smoker 2022-07-29 00:00:00 2022-07-29 00:00:00 K marilynn Montoya - External Medications Ordered Medication Name Filled Medication Name Start Date Stop Date Current Medication? Ordering Clinician Indication Dosage Frequency Signature (SIG) Comments Components Source Omeprazole 20 MG oral Delayed Release Capsule 09-02 00:00: 00 Yes [id number] 20mg Take 1 capsule (20 mg total) by mouth daily. Meredith butts Trazodone HCl 50 MG oral Tablet 09-02 00:00: 00 09-02 00:00 :00 Yes [id number] 50mg Take 1 tablet (50 mg total) by mouth nightly. Meredith butts Vitamin D, Ergocalcife rol, 1.25 MG (29294 UT) oral Capsule 08-05 00:00: 00 Yes [id number] 89316D Take 1 capsule (50,000 units total) by mouth once a week. Meredith butts Trazodone HCl 50 MG oral Tablet 08-02 00:00: 00 09-02 00:00 :00 No [id number] 50mg Take 1 tablet (50 mg total) by mouth nightly. Meredith butts Omeprazole 20 MG oral Delayed Release Capsule - 00:00: 00 09-02 00:00 :00 No [id number] 20mg Take 1 capsule (20 mg total) by mouth daily. Meredith Duarte Externa l Cyclobenzap rine HCl 5 MG oral Tablet 01-08 00:00: 00 08-02 00:00 :00 No [id number] 5mg Q.[id number] 3D Take 1 tablet (5 mg total) by mouth 3 times daily as needed for muscle spasms. Meredith butts Omeprazole 20 MG oral Delayed Release Capsule 01-08 00:00: 00 08-02 00:00 :00 No [id number] 20mg Take 1 capsule (20 mg total) by mouth daily. Meredith butts Topiramate 50 MG oral Tablet 12-23 00:00: 00 08-02 00:00 :00 No [id number] 50mg Take 1 tablet (50 mg total) by mouth 2 times daily. Meredith butts hydrOXYzine HCl 10 MG oral Tablet 12 00:00: 00 08-02 00:00 :00 No [id number] 10mg Q.[id number] 3D Take 1 tablet (10 mg total) by mouth 3 times daily as needed for itching or anxiety. Meredith butts Cefdinir 300 MG oral Capsule 08 00:00: 00 08-02 00:00 :00 No [id number] 300mg Take 1 capsule (300 mg total) by mouth 2 times daily. Meredith butts Gabapentin 100 MG oral Capsule 8-16 00:00: 00 Yes Take 1 capsule twice a day by oral route as needed for 30 days. Meredith Duarte Externa beckie Sertraline HCl 100 MG oral Tablet 8-08 00:00: 00 Yes [id number] 100mg Take 1 tablet (100 mg total) by mouth daily Meredith butts Sertraline HCl 50 MG oral Tablet 11-18 00:00: 00 Yes [id number] 50mg Take 1 tablet (50 mg total) by mouth daily Meredith butts Topiramate 25 MG oral Tablet 11-18 00:00: 00 12-23 00:00 :00 No [id number] 25mg Take 1 tablet (25 mg total) by mouth 2 times daily Meredith butts Semaglutide -Weight Management (Wegovy) 0.25 MG/0.5ML subcutaneou s Solution Auto-inject or 11-18 00:00: 00 12-23 00:00 :00 No [id number] .25mg Inject 0.25 mg into the skin once a week Meredith butts Atorvastati n Calcium 20 MG oral Tablet 11-04 00:00: 00 Yes [id number] 20mg Take 1 tablet (20 mg total) by mouth daily Meredith butts Lisinopril 5 MG oral Tablet 11-04 00:00: 00 Yes [id number] 5mg Take 1 tablet (5 mg total) by mouth daily Meredith butts Metoprolol Succinate 50 MG oral TABLET SR 24 HR 11-04 00:00: 00 Yes [id number] 50mg Take 1 tablet (50 mg total) by mouth daily Meredith butts Sertraline HCl 100 MG oral Tablet 10-21 00:00: 00 Yes [id number] 100mg Take 1 tablet (100 mg total) by mouth daily Meredith butts Sertraline HCl 50 MG oral Tablet 10-21 00:00: 00 Yes [id number] 50mg Take 1 tablet (50 mg total) by mouth daily Meredith butts buPROPion HCl 100 MG oral Tablet 10-21 00:00: 00 12-23 00:00 :00 No [id number] 100mg Take 1 tablet (100 mg total) by mouth daily Meredith butts Sertraline HCl 150 MG oral Capsule 10-21 00:00: 10-21 00:00 :00 No [id number] 1{capsu le} Take 1 capsule by mouth daily Meredith butts Nitrofurant oin Monohyd Macro (Macrobid) 100 MG oral Capsule 09-26 00:00: 00 Yes [id number] 100mg Take 1 capsule (100 mg total) by mouth 2 times daily Meredith butts hydrOXYzine HCl 10 MG oral Tablet 09-23 00:00: 00 12-23 00:00 :00 No [id number] 10mg Q.[id number] 3D Take 1 tablet (10 mg total) by mouth 3 times daily as needed for itching or anxiety Meredith butts Sertraline HCl 100 MG oral Tablet 09-23 00:00: 00 10-21 00:00 :00 No [id number] 100mg Take 1 tablet (100 mg total) by mouth daily Meredith butts Sertraline HCl 50 MG oral Tablet 08-26 00:00: 00 Yes [id number] 50mg Take 1 tablet (50 mg total) by mouth daily Meredith butts Propranolol HCl 10 MG oral Tablet 08-26 00:00: 00 Yes [id number] 20mg Take 2 tablets (20 mg total) by mouth 3 times daily Meredith butts Cariprazine HCl 1.5 MG oral Capsule 07-29 15:21: 08 07-29 00:00 :00 No 1{capsu le} Take 1 capsule by mouth daily Meredith butts Sertraline HCl 25 MG oral Tablet 07-29 00:00: 00 Yes [id number] 25mg Take 1 tablet (25 mg total) by mouth daily Meredith butts Metoprolol Succinate 50 MG oral TABLET SR 24 HR 12-06 00:00: 00 Yes [id number] 50mg Take 1 tablet (50 mg total) by mouth daily Meredith butts Atorvastati n Calcium 20 MG oral Tablet 12-06 00:00: 00 Yes [id number] 20mg Take 1 tablet (20 mg total) by mouth daily Meredith butts Lisinopril 5 MG oral Tablet 8-26 00:00: 00 Yes [id number] 5mg Take 1 tablet (5 mg total) by mouth daily Meredith butts metformin ER 500 mg 24 hr tablet 09-12 00:00: 00 Yes [facility] atorvastati n 20 mg tablet 09-12 00:00: 00 Yes [facility] lisinopril 5 mg tablet 09-12 00:00: 00 Yes [facility] metoprolol succinate XL 50 mg 24 hr tablet 09-12 00:00: 00 Yes [facility] Immunizations Ordered Immunization Name Filled Immunization Name Date Status Comments Source Covid-19 Vaccine Moderna (Spikevax), Mrna-lnp, Tej Protein, 2020-07-19 00:00:00 Completed Meredith Lozano Covid-19 Vaccine Moderna (Spikevax), Mrna-lnp, Tej Protein, 2020-07-19 00:00:00 Completed Meredith Duarte [facility] Covid-19 Vaccine Moderna (Spikevax), Mrna-lnp, Tej Protein, 2020-07-19 00:00:00 Completed Meredith Montoya [facility] Covid-19 Vaccine Moderna (Spikevax), Mrna-lnp, Tej Protein, 2020-07-19 00:00:00 Completed Meredith Montoya Blake Covid-19 Vaccine Moderna (Spikevax), Mrna-lnp, Tej Protein, 2020-07-19 00:00:00 Completed Meredith Montoya External Covid-19 Vaccine Moderna (Spikevax), Mrna-lnp, Tej Protein, 2020-07-19 00:00:00 Completed Meredith Montoya - External Covid-19 Vaccine Moderna (Spikevax), Mrna-lnp, [...] by Pulse oximetry 2022-11-18 21:13:00 98 /min Meredith Seybo ld - External [...] Systolic blood pressure 2019-10-06 20:46:00 134 mm[Hg] [facility] Diastolic blood pressure 2019-10-06 20:46:00 92 mm[Hg] [facility] Heart rate 2019-10-06 20:43:00 66 [facility] Body temperature 2019-10-06 20:43:00 37.61 Stefany [facility] Respiratory rate 2019-10-06 20:43:00 17 /min [facility] Body height 2019-10-06 20:43:[address] [facility] Body weight 2019-10-06 20:43:[address] [facility] BMI 2019-10-06 20:43:00 34.25 kg/m2 [facility] Oxygen saturation in Arterial blood by Pulse oximetry 2019-10-06 20:43:00 99 /min [facility] Procedures Procedure Date / Time Performed Performing Clinicia n Source URINALYSIS NONAUTO W/O SCOPE 2022-12-17 16:21:20 Heron Dubon - External Encounters Start Date/Time End Date/Time Encounter Type Admission Type Attending [facility] Care Department Encounter ID Source 2023-12-15 14:30:00 2023-12-15 14:30:00 Outpatient MILLER KARIMI [id number] Meredith Montoya 2023-11-12 00:00:00 2023-11-12 00:00:00 Outpatient MILLER KARIMI [id number] Meredith osvaldo 2023-11-09 00:00:00 2023-11-09 00:00:00 Outpatient HERON DUBON [id number] Meredith lizandro 2023-11-09 00:00:00 2023-11-09 00:00:00 Outpatient HERON DUBON [id number] Meredith osvaldo 2023-10-09 00:00:00 2023-10-09 00:00:00 Outpatient MILLER KARIMI [id number] Meredith Montoya 2023-09-03 15:00:00 2023-09-03 15:00:00 Outpatient MILLER KARIMI [id number] Meredith Montoya 2023-08-31 00:00:00 2023-08-31 00:00:00 Outpatient MD MEREDITH JOE [id number] Meredith Montoya 2023-08-17 00:00:00 2023-08-17 00:00:00 Outpatient MD MEREDITH JOE [id number] Meredith Montoya 2023-08-17 00:00:00 2023-08-17 00:00:00 Outpatient MILLER KARIMI [id number] Meredith Montoya 2023-08-06 00:00:00 2023-08-06 00:00:00 Outpatient MILLER KARIMISEY MEREDITH [id number] [facility] 2023-08-03 16:20:00 2023-08-03 16:20:00 Outpatient LABGlenis IBRAHIMOSMANI BEASLEY [id number] [facility] 2023-08-03 15:30:00 2023-08-03 15:30:00 Outpatient MILLER KARIMI MEREDITH BEASLEY [id number] [facility] 2023-01-13 00:00:00 2023-01-13 00:00:00 Outpatient GC_GCBZW_Ka diyala_S PRIV PRIV [id number] [facility] 2023-01-13 00:00:00 2023-01-13 00:00:00 Outpatient GC_GCBZW_Ka diyala_S PRIV PRIV [id number] [facility] 2023-01-08 08:00:00 2023-01-08 08:00:00 Outpatient MILLER KARIMI MEREDITH BEASLEY [id number] [facility] 2023-01-06 00:00:00 2023-01-06 00:00:00 Outpatient MILLER KARIMI MEREDITH BEASLEY [id number] [facility] 2022-12-29 16:15:00 2022-12-29 16:15:00 Outpatient LABGlenis MEREDITH BEASLEY [id number] [facility] 2022-12-29 00:00:00 2022-12-29 00:00:00 Outpatient RAFFY HERON MEREDITH BEASLEY [id number] [facility] 2022-12-23 16:00:00 2022-12-23 16:00:00 Outpatient TREV [facility] [id number] [facility] 2022-12-19 16:00:00 2022-12-19 16:00:00 Outpatient TREV MILLER BEASLEY [id number] [facility] 2022-12-19 00:00:00 2022-12-19 00:00:00 Outpatient PREHERON GAYLE MEREDITH BEASLEY [id number] [facility] 2022-12-17 16:25:00 2022-12-17 16:25:00 Outpatient ISACC MEREDITH BEASLEY [id number] [facility] 2022-12-17 11:15:00 2022-12-17 11:15:00 Outpatient HERON DUBON MEREDITH BEASLEY [id number] [facility] 2022-12-15 00:00:00 2022-12-15 00:00:00 Outpatient PATRICK AGUILERA MEREDITH BEASLEY [id number] [facility] 2022-11-27 00:00:00 2022-11-27 00:00:00 Outpatient GC_GCBZW_Ka diyala_S PRIV PRIV [id number] [facility] 2022-11-26 00:00:00 2022-11-26 00:00:00 Outpatient GC_GCBZW_Ka diyala_S PRIV PRIV [id number] [facility] 2022-11-18 16:30:00 2022-11-18 16:30:00 Outpatient MILLER KARIMI [id number] [facility] 2022-11-04 00:00:00 2022-11-04 00:00:00 Outpatient GC_GCBZW_Ka diyala_S PRIV PRIV [id number] [facility] 2022-11-03 00:00:00 2022-11-03 00:00:00 Outpatient DALE DUBONHANSA BEASLEY [id number] [facility] 2022-10-30 00:00:00 2022-10-30 00:00:00 Outpatient MILLER KARIMI [id number] [facility] 2022-10-29 00:00:00 2022-10-29 00:00:00 Outpatient GC_GCBZW_Ka diyala_S PRIV PRIV [id number] [facility] 2022-10-21 14:30:00 2022-10-21 14:30:00 Outpatient MILLER KARIMI [id number] [facility] 2022-10-02 13:00:00 2022-10-02 13:00:00 Outpatient BRIGETTE GUTIERREZ [id number] Meredith Jan 2022-10-02 00:00:00 2022-10-02 00:00:00 Outpatient MD MEREDITH JOE [id number] Meredith Jan 2022-09-26 00:00:00 2022-09-26 00:00:00 Outpatient MILLER KARIMI [id number] Meredith yblizandro 2022-09-23 13:45:00 2022-09-23 13:45:00 Outpatient LAB90 MEREDITH BEASLEY [id number] Meredith Jan 2022-09-23 13:00:00 2022-09-23 13:00:00 Outpatient HUNDBeckie, MILLER BEASLEY [id number] Meredith Jan 2022-09-23 00:00:00 2022-09-23 00:00:00 Outpatient TREV, MILLER BEASLEY [id number] Meredith yblizandro 2022-08-26 11:00:00 2022-08-26 11:00:00 Outpatient HUNDL, MILLER BEASLEY [id number] Meredith Montoya 2022-07-29 15:00:00 2022-07-29 15:00:00 Outpatient HERON DUBON [id number] Meredith lizandro 2022-07-29 00:00:00 2022-07-29 00:00:00 Outpatient GROUP, [facility] [id number] [facility] 2021-12-06 10:00:00 2021-12-06 10:30:00 Office Visit Farheen Morgan [place] [id number]..[id number] Meredith yblizandro 2019-10-07 00:00:00 2019-10-07 00:00:00 Letter (Out) Doctor Unassigned, [place] [facility] [id number] [facility] 2019-10-07 00:00:00 2019-10-07 00:00:00 Letter (Out) Stanton Lentz [facility] 1.114 [id number] [facility] 2019-10-07 00:00:00 2019-10-07 00:00:00 Telephone Rosina Naranjo [facility] 1.114 [id number] [facility] 2019-10-06 15:17:18 2019-10-06 16:11:22 Urgent Care Pob1, Acute Care Clinic Narcisa [facility] Office Building One 1.84.114 [id number] [facility] 2019-10-06 15:20:00 2019-10-06 15:20:00 Outpatient R NARCISA [facility] [id number] [facility] Results Test Description Test Time Test Comments Results Result Co mments Source Meredith Montoya - ExternalSCR MAMM BILATERAL TRISTON CAD [id number] 12:39:51 Name: Vicki : 1970 Sex: F - SCR MAMM BILATERAL TRISTON CAD DIGITALBILATERAL DIGITAL SCREENING MAMMOGRAM 3D/2D WITH CAD: 05/06/2022LINICAL: Asymptomatic. Digital breast tomosynthesis was performed in addition to routine CC and MLO views. Current mammographic images were evaluated by [employer] ImageChecker CAD (computer-aided detection) software. Comparison is made to examdated 04/18/2020 mammogram - [facility]. There are scattered fibroglandular tissues [...] 12:39:51 Attending Technologist: Angela Roberson MM, [facility] MammographyImaging Technologist: Sunita Ferrara MM, [facility] Mammographyletter sent: BIRADS 1-2 Normal Mammogram BI-RADS: 2 BenignSCR MAMM BILATERAL TRISTON CAD [id number] 12:39:51 Name: Vicki : 1970 Sex: F - SCR MAMM BILATERAL TRISTON CAD DIGITALBILATERAL DIGITAL SCREENING MAMMOGRAM 3D/2D WITH CAD: 05/06/2022LINICAL: Asymptomatic. Digital breast tomosynthesis was performed in addition to routine CC and MLO views. Current mammographic images were evaluated by [employer] CAD (computer-aided detection) software. Comparison is made to examdated 04/18/2020 mammogram - [facility]. There are scattered fibroglandular tissues in both breasts. There is a benign appearing focal asymmetry in the right breast. No suspicious mass, architectural distortion, malignant type calcification, or lymph node abnormality detected. Breastarchitecture is stable compared to prior exams.IMPRESSION: BENIGNThere is no mammographic evidence of malignancy. Resume annual screening mammography in one year. (05/07/2023) Farheen gonzalez /penrad:05/06/2022 12:39:51 Attending Technologist: Angela Roberson MM, [facility] MammographyImaging Technologist: Sunita Ferrara MM, [facility] Mammographyletter sent: BIRADS 1-2 Normal Mammogram BI-RADS: 2 BenignSCR MAMM BILATERAL TRISTON CAD [id number] 17:29:57 Name: Vicki DOB: 1970 Sex: F - SCR MAMM BILATERAL TRISTON CAD DIGITALBILATERAL DIGITAL SCREENING MAMMOGRAM 3D/2D WITH CAD: 04/18/2020LINICAL: Asymptomatic. Digital breast tomosynthesis was performed in addition to routine CC and MLO views. Current mammographic images were evaluated by either a [employer] M-Vu or a [employer] ImageChecker CAD (computer aided detection system). No prior exams were available for comparison. There are scattered fibroglandular tissues in both breasts. There are benign densities in both breasts. No suspicious mass, architectural distortion, malignant type calcification, or lymph node abnormality detected. IMPRESSION: BENIGNThere is no mammographic evidence of malignancy. Resume annual screening mammography in one year. Farheen Simms M.D. [facility]/penrad:04/30/2020 17:29:57 Boiler Repairman: Gianna Parekh MM, [facility] Mammographylettersent: BIRADS 1-2 Normal Mammogram BI-RADS: 2 Benign Notes Date/Time Note Provider Source 2023-09-03 14:55:34 Chief Complaint Patient presents with Follow-up Follow up on insomnia and Vitamin D defiency Anna Marie Waggoner MA II [facility] 2023-08-03 15:31:07 Chief Complaint Patient presents with Referral Needs referral to cardiology and Blood work. C/O being fatigued all the time she thinks it might be anxiety. .Amy Frederick LVN [facility] 2022-12-23 16:05:39 Formatting of this n ote is different from the original. Chief Complaint Patient presents with Follow-up Follow up on Sertraline Anna Marie Waggoner MA II [facility] 2022-11-18 16:17:28 Formatting of this n ote might be different from the original. Patient is here for follow up, VSS, medications reconciled. [facility] 2022-10-21 14:34:52 Formatting of this n ote might be different from the original. Patient is here for physical and f/u on medications. VSS, medications reconciled. No concerns voiced at this time. [facility]
[2023-11-14 01:47] LABS: Absolute Basophils 0.1 K/uL (0-0.5); Absolute Eosinophils 0.2 K/uL (0-0.5); Absolute Lymphocytes (CBC) 2.6 K/uL (0.7-4.9); Absolute Monocytes 0.6 K/uL (0.1-1.3); Absolute Neutrophil 3.2 K/uL (1.8-8.0); Basophils % 0.9 % (0-1.3); Eosinophils % 3.1 % (0-4.4); Hematocrit 36.1 % (36.0-45.0); Hemoglobin 12.6 g/dL (12.0-15.0); Lymphocytes % 39.4 % (15.3-44.8); MCH 31.9 pg (27.0-35.0); MCHC 34.9 g/dL (32.0-36.0); MCV 91.4 fL (80-100); MPV 6.4 fL (7.6-11.3); Monocytes % 8.7 % (3.3-12.3); Neutrophils % 47.9 % (41.7-73.7); Nucleated Red Blood Cells % 0.2 % (0-0); Platelets 213 thou/uL (152-406); RBC Red Blood Cell Count 3.95 M/uL (3.86-4.86); Red Cell Distribution Width 14.7 % (12.1-15.2)
[2023-11-14 01:57] LABS: PT Prothrombin Time 11.8 SECONDS (9.4-12.5); Protime INR 1.06
[2023-11-14 02:05] LABS: Albumin 3.9 g/dL (3.4-5.0); Albumin/Globulin Ratio 1.2 (1.1-1.8); Anion Gap 8.7 mEq/L (5.0-15.0); Bilirubin Direct 0.2 mg/dL (0-0.2); Bilirubin Indirect, Calculated 0.4 mg/dL (0.2-0.8); Bilirubin Total 0.6 mg/dL (0.2-1.0); Globulin 3.2 g/dL (2.3-3.5); Magnesium 2.2 mg/dL (1.6-2.4); Potassium 3.7 mEq/L (3.5-5.1); Protein, Total 7.1 g/dL (6.4-8.2); Troponin High Sensitivity 7.6 pg/mL (<58.9)
[2023-11-14 02:28] LABS: Thyroid Stimulating Hormone 0.816 uIU/mL (0.358-3.740)
--- NOTE | 2023-11-14 07:23 | ER ---
Nurse's Notes [facility] Name: Vicki Peace Age: 52 yrs Sex: Female : 1970 Arrival Date: 11/14/2023 Time: 00:05 Bed 7 Private MD: Diagnosis: Chest pain, unspecified Presentation: 11/13 00:50 Chief complaint: Patient states: pain to chest, shoulder and up jaw that began ss yesterday. Coronavirus screen: Client denies travel out of the [place] in the last 14 days. Ebola Screen: Patient denies exposure to infectious person. Patient denies travel to an Ebola-affected area in the 21 days before illness onset. Initial Sepsis Screen: Does the patient meet any 2 criteria? No. Patient's initial sepsis screen is negative. Does the patient have a suspected source of infection? No. Patient's initial sepsis screen is negative. Risk Assessment: Do you want to hurt yourself or someone else? Patient reports no desire to harm self or others. Onset of symptoms was November 13, 2023. 00:50 Method Of Arrival: Ambulatory ss 00:50 Acuity: MARI 2 ss Triage Assessment: 00:52 General: Appears in no apparent distress. comfortable, Behavior is calm, cooperative. ss Pain: Complains of pain in back and chest, jaw Pain currently is 5 out of 10 on a pain scale. Quality of pain is described as aching. Neuro: Level of Consciousness is awake, alert, obeys commands, Oriented to person, place, time, situation. Respiratory: Respiratory effort is even, unlabored, Respiratory pattern is regular, symmetrical. Historical: - Allergies: 00:52 PENICILLINS; ss 00:52 Sulfa (Sulfonamide Antibiotics); ss - PMHx: 00:52 Hypercholesterolemia; Hypertensive disorder; ss - PSHx: 00:52 Cholecystectomy; tubal ligation; Appendectomy; ss - Immunization history:: Client reports receiving the 2nd dose of the Covid vaccine. - Infectious Disease History:: Denies. - Social history:: Smoking status: Patient denies any tobacco usage or history of. - Family history:: not pertinent. Screenin:00 [facility] ED Fall Risk Assessment (Adult) History of falling in the last 3 months, kc6 including since admission No falls in past 3 months (0 pts) Confusion or Disorientation No (0 pts) Intoxicated or Sedated No (0 pts) Impaired Gait No (0 pts) Mobility Assist Device Used No (0 pt) Altered Elimination No (0 pt) Score/Fall Risk Level 0 - 2 = Low Risk. Abuse screen: Denies threats or abuse. Denies injuries from another. Nutritional screening: No deficits noted. Tuberculosis screening: No symptoms or risk factors identified. Assessment: 03:00 General: Appears in no apparent distress. Behavior is calm, cooperative. [facility] 03:00 Pain:. Neuro: No deficits noted. Cardiovascular: No deficits noted. Respiratory: No [facility] deficits noted. Reports. GI: No deficits noted. No signs and/or symptoms were reported involving the gastrointestinal system. : No deficits noted. No signs and/or symptoms were reported regarding the genitourinary system. EENT: No deficits noted. No signs and/or symptoms were reported regarding the EENT system. Derm: No deficits noted. No signs and/or symptoms reported regarding the dermatologic system. Musculoskeletal: Reports. 07:14 Reassessment: Patient appears in no apparent distress at this time. No changes from kc6 previously documented assessment. Patient and/or family updated on plan of care and expected duration. Pain level reassessed. Patient is alert, oriented x 3, equal unlabored respirations, skin warm/dry/pink. 07:36 Reassessment: Patient appears in no apparent distress at this time. Patient and/or db family updated on plan of care and expected duration. Pain level reassessed. Patient is alert, oriented x 3, equal unlabored respirations, skin warm/dry/pink. Patient states feeling better. Patient states symptoms have improved. Vital Signs: 00:50 BP 172 / 97; Pulse 70; Resp 16; Temp 97.7(O); Pulse Ox 99% on R/A; Weight 99.79 kg; Height 5 ft. 5 in. ; Pain 5/10; 04:02 BP 128 / 69; Pulse 69; Resp 14; Pulse Ox 94% ; 12 05:24 BP 117 / 63; Pulse 64; Resp 14; Pulse Ox 96% ; 12 07:31 BP 129 / 79; Pulse 64; Resp 16; Temp 97.8; Pulse Ox 100% ; db 00:50 Body Mass Index 36.61 (99.79 kg, 165.1 cm) 00:50 Pain Scale: Adult ss Faisal Coma Score: 23:10 Eye Response: spontaneous(4). Motor Response: obeys commands(6). Verbal Response: sp4 oriented(5). Total: 15. ED Course: 00:42 Patient arrived in ED. gm2 00:43 Monserrat Patricia RN is Primary Nurse. ss 00:52 Triage completed. ss 00:52 Arm band placed on right wrist. ss 00:53 Julian Negron MD is Attending Physician. sp4 01:32 XRAY Chest (1 view) In Process Unspecified. EDMS 01:32 Inserted saline lock: 22 gauge in left antecubital area, using aseptic technique. Blood ss collected. Flushed with 10 mL NS. 03:00 Patient has correct armband on for positive identification. Bed in low position. Call jm12 light in reach. Side rails up X2. 05:40 Troponin High Sensitivity Sent. jm12 07:00 Report received from GUADALUPE Weiss. kc6 07:00 Pulse ox on. NIBP on. Door closed. Noise minimized. Lights dimmed. Warm blanket given. kc6 Pillow given. 07:36 Provided Education on: discharge. db 07:36 No provider procedures requiring assistance completed. IV discontinued, intact, db bleeding controlled, No redness/swelling at site. Administered Medications: 06:03 Not Given (Patient Refused): aspirinchewable tablet 324 mg PO once; 81 mg tablets x 4 jm12 06:03 Not Given (Patient Refused): clonidine0.2 mg PO once jm12 Medication: 07:36 VIS not applicable for this client. db Outcome: 07:22 Discharge ordered by . sp4 07:36 Discharged to home ambulatory, db 07:36 Condition: stable 07:36 Discharge instructions given to patient, Instructed on discharge instructions, follow up and referral plans. 07:37 Patient left the ED. db Signatures: Dispatcher [employer] EDMS Monserrat Patricia RN RN ss Campbell, Kaitlyn, RN RN kc6 Benton, Danielle, RN RN db Potepalov, Sergey, MD MD sp4 Dede Looney 2 Isela Cade RN RN 12 Corrections: (The following items were deleted from the chart) 02:05 01:32 Inserted saline lock: 22 gauge in right antecubital area, using aseptic ss technique. Blood collected. Flushed with 10 mL NS ss
--- NOTE | 2023-11-14 07:23 | EDPHYS ---
Physician Documentation [facility] Name: Vicki Peace Age: 52 yrs Sex: Female : 1970 Arrival Date: 11/14/2023 Time: 00:05 Bed 7 Private MD: ED Physician Julian Negron HPI: 11/13 00:53 This 52 yrs old Female presents to ER via Ambulatory with complaints of Pain, sp4 Shoulder Pain. 23:10 32-year-old female presents with complaint of chest pain shoulder pain with pain sp4 radiation down and of the left neck. Historical: - Allergies: 00:52 PENICILLINS; ss 00:52 Sulfa (Sulfonamide Antibiotics); ss - PMHx: 00:52 Hypercholesterolemia; Hypertensive disorder; ss - PSHx: 00:52 Cholecystectomy; tubal ligation; Appendectomy; ss - Immunization history:: Client reports receiving the 2nd dose of the Covid vaccine. - Infectious Disease History:: Denies. - Social history:: Smoking status: Patient denies any tobacco usage or history of. - Family history:: not pertinent. ROS: 23:10 Constitutional: Negative for fever, chills, and weight loss, positive chest pain sp4 positive shoulder pain positive neck pain 23:10 All other systems are negative, Exam: 23:10 Constitutional: This is a well developed, well nourished patient who is awake, alert, sp4 and in no acute distress. Head/Face: Normocephalic, atraumatic. Eyes: Pupils equal round and reactive to light, extra-ocular motions intact. Lids and lashes normal. Conjunctiva and sclera are not injected. Cornea within normal limits. Periorbital areas with no swelling, redness, or edema. ENT: Nares patent. No nasal discharge, no septal abnormalities noted. Tympanic membranes are normal and external auditory canals are clear. Oropharynx with no redness, swelling, or masses, exudates, or evidence of obstruction, uvula midline. Mucous membranes moist. Neck: Trachea midline, no thyromegaly or masses palpated, and no cervical lymphadenopathy. Supple, full range of motion without nuchal rigidity, or vertebral point tenderness. Chest/axilla: Normal chest wall appearance and motion. Nontender with no deformity. No lesions are appreciated. Cardiovascular: Regular rate and rhythm with a normal S1 and S2. No gallops, murmurs, or rubs. Normal PMI, no JVD. No pulse deficits. Respiratory: Lungs have equal breath sounds bilaterally, clear to auscultation and percussion. No rales, rhonchi or wheezes noted. No increased work of breathing, no retractions or nasal flaring. Abdomen/GI: Soft, with normal bowel sounds. No distension or tympany. No guarding or rebound. No evidence of tenderness throughout. Back: No spinal tenderness. No costovertebral tenderness. Skin: Warm, dry with normal turgor. Normal color with no rashes, no lesions, and no evidence of cellulitis. MS/ Extremity: Pulses equal, no cyanosis. Neurovascular intact. Full, normal range of motion. Neuro: Awake and alert, GCS 15, oriented to person, place, time, and situation. Cranial nerves II-XII grossly intact. Motor strength 5/5 in all extremities. Sensory grossly intact. Psych: Awake, alert, with orientation to person, place and time. Behavior, mood, and affect are within normal limits 23:10 ECG was reviewed by the Attending Physician. Normal sinus rhythm normal EKG Vital Signs: 00:50 BP 172 / 97; Pulse 70; Resp 16; Temp 97.7(O); Pulse Ox 99% on R/A; Weight 99.79 kg; ss Height 5 ft. 5 in. ; Pain 5/10; 04:02 BP 128 / 69; Pulse 69; Resp 14; Pulse Ox 94% ; jm12 05:24 BP 117 / 63; Pulse 64; Resp 14; Pulse Ox 96% ; jm12 07:31 BP 129 / 79; Pulse 64; Resp 16; Temp 97.8; Pulse Ox 100% ; db 00:50 Body Mass Index 36.61 (99.79 kg, 165.1 cm) ss 00:50 Pain Scale: Adult ss Wolf Coma Score: 23:10 Eye Response: spontaneous(4). Motor Response: obeys commands(6). Verbal Response: sp4 oriented(5). Total: 15. MDM: 01:02 Patient medically screened. sp4 07:24 ED course: EXAM DESCRIPTION: CHEST SINGLE VIEW CLINICAL HISTORY: Chest pain. sp4 COMPARISON: XR Chest 10/13/2023 (report only). FINDINGS: 1 view(s) of the chest. Tubes and lines: None Cardiomediastinal silhouette: Normal size and contour. Lungs: No consolidation, pneumothorax, or pleural effusion. Bones: No acute osseous abnormality. Upper abdomen: No abnormality identified. IMPRESSION: 1. No acute pulmonary process identified. . 23:10 Differential diagnosis: glenoid fracture, DJD, tendonitis. Data reviewed: vital signs, sp4 nurses notes, lab test result(s), radiologic studies, plain films. Scoring Tools HEART Score: History: Slightly Suspicious (0) ECG: Normal (0) Age: > 45 and < 65 years (1) Risk Factors: 1 or 2 Risk factors (1) Troponin: < or = 1 x Normal limit (0) Total Score = 1. ED course: Stable for discharge home. 11/13 01:02 Order name: Basic Metabolic Panel; Complete Time: 05:25 sp4 11/13 01:02 Order name: CBC with Diff; Complete Time: 05:25 sp4 11/13 01:02 Order name: LFT's; Complete Time: 05:25 sp4 11/13 01:02 Order name: Magnesium; Complete Time: 05:25 sp4 11/13 01:02 Order name: NT PRO-BNP; Complete Time: 05:25 sp4 11/13 01:02 Order name: PT-INR; Complete Time: 05:25 sp4 11/13 01:02 Order name: Troponin HS; Complete Time: 05:25 sp4 11/13 02:11 Order name: T4 Free; Complete Time: 05:25 EDMS 11/13 02:11 Order name: Thyroid Stimulating Hormone; Complete Time: 05:25 EDMS 11/13 05:23 Order name: Troponin High Sensitivity; Complete Time: 07:18 sp4 11/13 01:02 Order name: XRAY Chest (1 view) sp4 11/13 01:02 Order name: EKG; Complete Time: 01:02 sp4 11/13 01:02 Order name: Cardiac monitoring; Complete Time: 02: sp4 11/13 01:02 Order name: EKG - Nurse/Tech; Complete Time: 02: sp4 11/13 01:02 Order name: IV Saline Lock; Complete Time: 02: sp4 11/13 01:02 Order name: Labs collected and sent; Complete Time: : sp4 08/03 01:02 Order name: O2 Per Protocol; Complete Time: 02:26 sp4 08 01:02 Order name: O2 Sat Monitoring; Complete Time: :26 sp4 EC:10 Rate is 64 beats/min. Rhythm is regular, Normal Sinus Rhythm. QRS [place] is Normal. IA sp4 interval is normal. QRS interval is normal. QT interval is normal. No Q waves. T waves are Normal. No ST changes noted. Clinical impression: Normal ECG. Interpreted by me. Reviewed by me. Administered Medications: 06:03 Not Given (Patient Refused): aspirinchewable tablet 324 mg PO once; 81 mg tablets x 4 jm12 06:03 Not Given (Patient Refused): clonidine0.2 mg PO once jm12 Disposition Summary: 11/14/23 07:22 Discharge Ordered Notes: Location: Home sp4 Problem: new sp4 Symptoms: have improved sp4 Condition: Stable sp4 Diagnosis - Chest pain, unspecified sp4 Followup: sp4 - With: Private Physician - When: 7 - 10 days - Reason: Recheck today's complaints Discharge Instructions: - Discharge Summary Sheet sp4 - Nonspecific Chest Pain, Adult, [id number] sp4 Signatures: Dispatcher [employer] EDMS Monserrat Patricia RN RN Julian Perales MD MD 4 Isela Cade RN jm12 Corrections: (The following items were deleted from the chart) 02:21 02:05 THYROID STIMULAT HORMONE+C.LAB.BRZ ordered. EDMS EDMS 02:21 02:05 T4 FREE+C.LAB.BRZ ordered. EDMS EDMS 05:24 05:23 Troponin High Sensitivity+C.LAB.BRZ ordered. EDMS EDMS
[2023-11-14 10:58] VITALS: BP 129/79; TEMP 97.8; O2SAT 100
--- NOTE | 2023-11-14 19:34 | RAD REPORT ---
EXAM DESCRIPTION: CHEST SINGLE VIEW CLINICAL HISTORY: Chest pain. COMPARISON: XR Chest 10/13/2023 (report only). FINDINGS: 1 view(s) of the chest. Tubes and lines: None Cardiomediastinal silhouette: Normal size and contour. Lungs: No consolidation, pneumothorax, or pleural effusion. Bones: No acute osseous abnormality. Upper abdomen: No abnormality identified. IMPRESSION: 1. No acute pulmonary process identified. Electronically signed by: Toño Jean DO 11/14/2023 01:53 AM CDT RP [id number] Due to temporary technical issues with the PACS/Fluency reporting system, reports are being signed by the in house radiologists without review as a courtesy to insure prompt reporting. The interpreting radiologist is fully responsible for the content of the report.
--- NOTE | 2023-11-16 17:05 | EKG ---
Test Date: 2023-11-14 Test Time: 00:54:56 Otm Consultant: MEASUREMENT RESULTS: Intervals: Rate: 66 MS: 186 QRSD: 84 QT: 416 QTc: 436 [place]: P: 53 MS: 186 QRS: 32 T: 21 INTERPRETIVE STATEMENTS: Normal sinus rhythm Normal ECG Compared to ECG 10/13/2023 19:18:29 No significant changes Electronically Signed On 11-16-23 16:59:02 CDT by Kiran Casarez
== END 2023-11-14 07:37 | disposition home or self-care (01) ==
LOC: ER 00:05
DX: R07.9 Chest pain, unspecified (principal); M25.512 Pain in left shoulder
CPT/HCPCS: 36415; 71045; 80048; 80076; 83735; 83880; 84439; 84443; 84484; 85025; 85610; 93005; 99284

== ENCOUNTER 2024-08-13 15:59 | Emergency (ER) | payer OTHER ==
--- OUTSIDE RECORDS SUMMARY | 2024-08-13 16:04 | XMS REPORT | Continuity of Care Document ---
Author Name Unknown Address [address] [facility] Jose Ramon. [address] [place] [address] [facility] Address [address] [facility]. [address] [place] [address] Care Team Providers Care Production Cook Name Role Phone MILLER KARIMI Attending Clinician Unavailable LAB90 Attending Clinician Unavailable NOMAN OBRIEN Attending Clinician Unavailable HERON DUBON Attending Clinician Unavailable MD JEOVANY Attending Clinician Unavailab le [email or web address]_Archana_S Attending Clinician UnavailPATRICK Wall Attending Clinician Unavailable BRIGETTE GUTIERREZ Attending Clinician UnavailMEREDITH Spangler MEDICAL Attending Joaquinia n Unavailable Eddie MILES, Farheen Del Rio Attending Clinician [phone] Doctor Unassigned, Ballou Attending Clinician U jelani Lentz MD, Stanton Ayala Attending Clinician [phone] Rosina Naranjo RN Attending Clinician Unavailable [facility] Attending Clinician Unav Puja Salgado Attending Clinician [phone] PUJA BREWSTER Attending Clinician Unavailable [email or web address] Admitting Clinician Shireen lemos Payers Payer Name Policy Type Policy Number Effective Date Expirati on Date Source [facility]-NAVIGATE/POS 3 [id number] 2023 00:00:00 [employer]-90 DEGREE BENEFIT 2 [id number] 2022 00:00:00 [facility] Lalalama [facility] - OPEN ACCESS [id number] 2022 00:00:00 Problems Condition Name Condition Details Condition Category Status Onset Date Resolution Date Last Treatment Date Treating Clinician Comments Source Menopausal symptom Menopausal Symptom Problem Active - 00:00: 00 [facility] Insomnia Insomnia Disease Active 09-02 00:00: 00 Meredith Seelvinold - Externa l Stress incontinen ce of urine Stress incontinen ce of urine Disease Active 12-17 00:00: 00 Meredith Johnsonold - Externa l Cerumen debris on tympanic membrane of left ear Cerumen debris on tympanic membrane of left ear Disease Active 12-17 00:00: 00 Meredith Johnsonold - Externa l Cystocele Cystocele Problem Active 8 00:00: 00 [facility] Female stress incontinen ce Female Stress Incontinen ce Problem Active 8 00:00: 00 [facility] Incomplete emptying of urinary bladder Incomplete Emptying of Urinary Bladder Problem Active 8 00:00: 00 [facility] Hyperlipid emia Hyperlipid emia Problem Active 11-03 00:00: 00 [facility] Anxiety Anxiety Problem Active 11-03 00:00: 00 [facility] Essential hypertensi on Essential Hypertensi on Problem Active 11-03 00:00: 00 [facility] Prediabete s Prediabete s Disease Active - 00:00: 00 Meredith Johnsonold - Externa l Hyperlipid emia Hyperlipid emia Disease Active - 00:00: 00 Meredith Colladoybold - Externa l Primary hypertensi on - Controlled Primary hypertensi on - Controlled Disease Active 10-20 00:00: 00 Meredith butts ALEXA (generaliz ed anxiety disorder) - Not Controlled ALEXA (generaliz ed anxiety disorder) - Not Controlled Disease Active 7-10 00:00: 00 Meredith butts Current mild episode of major depressive disorder Current mild episode of major depressive disorder Disease Active 18 00:00: 00 Meredith butts PTSD (post-trau matic stress disorder) PTSD (post-trau matic stress disorder) Disease Active 07-29 00:00: 00 Meredith butts Screening mammograph y Screening Mammograph y Problem Active 804 00:00: 00 [facility] Screening for malignant neoplasm of colon Screening for Malignant Neoplasm of Colon Problem Active 11-14 00:00: 00 [facility] Gynecologi c examinatio n Gynecologi c Examinatio n Problem Active 803 00:00: 00 [facility] Blood glucose outside reference range Blood Glucose outside Reference Range Problem Active 05-20 00:00: 00 [facility] Impaired fasting glycemia Impaired Fasting Glycemia Problem Active 2015-04 00:00: 00 [facility] Candidiasi s of vagina Candidiasi s of Vagina Problem Active 2015-04 00:00: 00 [facility] Abnormal weight gain Abnormal Weight Gain Problem Active 2015-04 0 00:00: 00 [facility] Excessive and frequent menstruati on Excessive and Frequent Menstruati on Problem Active 09-04 00:00: 00 [facility] Polymenorr hea Polymenorr hea Problem Active 08-27 00:00: 00 [facility] Excessive menstruati on with irregular cycle Excessive Menstruati on with Irregular Cycle Problem Active 08-27 00:00: 00 [facility] Contracept ion care education Contracept ion Care Education Problem Active 08-02 00:00: 00 [facility] Uterine leiomyoma Uterine Leiomyoma Problem Active 07-18 00:00: 00 [facility] Irregular periods Irregular Periods Problem Active 06-24 00:00: 00 [facility] Gynecologi ada examinatio n abnormal Gynecologi ada Examinatio n Abnormal Problem Active 06-24 00:00: 00 [facility] No known active problems No known active problems Disease [facility] Allergies, Adverse Reactions, Alerts Allergy Name Allergy Type Status Severity Reaction(s) Onset Date Inactive Date Treating Clinician Comments Source Sulfa Drugs Propensi ty to adverse reaction s Active Rash 04-13 00:00: 00 Meredith Duarte Externa l Penicill ins Propensi ty to adverse reaction s Active Shortness of Breath 04-13 00:00: 00 Other Reaction( s): passed out Meredith Medeirosa l NO KNOWN ALLERGIE S Drug Class Active [facility] PENICILL IN G SODIUM Allergy to substanc e Active [facility] PENICILL INS Allergy to substanc e Active Moderate severity Anaphylaxis [facility] SULFA (SULFONA MIDE ANTIBIOT ICS) Allergy to substanc e Active Mild Rash [facility] Social History Social Habit Start Date Stop Date Quantity Comments Source Gender identity 2022-07-29 08:05:17 Identifies as female gender (finding) Meredith Montoya - External Sexual orientation 2022-07-29 08:05:17 Heterosexual (finding) Meredith Montoya - External ASSERTION Not Meredith Montoya - External History of tobacco use Current smoker Meredith washington - External Exposure to SARS-CoV-2 (event) Not sure [facility] Alcoholic beverage intake 2024-07-25 00:00:00 2024-07-25 00:00:00 .29 /d Meredith Montoya - External History of Social function 2023-01-08 00:00:00 2023-01-08 00:00:00 Meredith Montoya - External Sex 2020-07-10 17:07:59 2020-07-10 17:07:59 Female (finding) Meredith Montoya - External Tobacco Comment 2019-10-06 00:00:00 2019-10-06 00:00:00 [facility] Sex assigned at 1970 00:00:00 1970 00:00:00 Mary Montoya - External Smoking Status Start Date Stop Date Source Never Smoker [facility] Ex-smoker 2023-12-15 00:00:00 2023-12-15 00:00:00 Linus Lozano Medications Ordered Medication Name Filled Medication Name Start Date Stop Date Current Medication? Ordering Clinician Indication Dosage Frequency Signature (SIG) Comments Components Source Cholecalcif brenna (Vitamin D-3) 25 MCG (1000 UT) oral Capsule 07-25 09:54: 26 Yes Vitamin D3 eMredith butts hydrOXYzine HCl 10 MG oral Tablet 07-25 09:54: 26 Yes Take by mouth. Meredith butts Ketorolac Tromethamin e 10 MG oral Tablet 07-25 00:00: 00 Yes [id number] 10mg Q.25D Take 1 tablet (10 mg total) by mouth every 6 hours as needed for pain. Meredith butts Ketoconazol e 2 % apply externally Cream 06-13 00:00: 00 07-25 00:00 :00 No [id number] Apply to affected area under breasts BID PRN antiyeast. Meredith butts Triamcinolo ne Acetonide 0.025 % apply externally Cream 06-13 00:00: 00 07-12 04:59 :00 Yes [id number] Apply to AA under breasts with ketoconazo le cream then zinc oxide 40% barrier cream BID PRN rash up to 6 weeks only.. Meredith butts Metoprolol Succinate 50 MG oral TABLET SR 24 HR 04-22 00:00: 00 Yes [id number] 50mg QD Take 1 tablet (50 mg total) by mouth daily. Meredith butts Lisinopril 5 MG oral Tablet 04-22 00:00: 00 Yes [id number] 5mg QD Take 1 tablet (5 mg total) by mouth daily. Meredith butts Atorvastati n Calcium 20 MG oral Tablet 04-22 00:00: 00 Yes [id number] 20mg QD Take 1 tablet (20 mg total) by mouth nightly. Meredith butts Nitrofurant oin Monohyd Macro (Macrobid) 100 MG oral Capsule 12-16 00:00: 00 07-25 00:00 :00 No [id number] 100mg Q.5D Take 1 capsule (100 mg total) by mouth 2 times daily. Meredith butts Vitamin D, Ergocalcife rol, 1.25 MG (87537 UT) oral Capsule 12-16 00:00: 00 07-25 00:00 :00 No [id number] Q1W Take 1 capsule (50,000 units total) by mouth once a week. Meredith butts Atorvastati n Calcium 20 MG oral Tablet 12-14 00:00: 00 Yes [id number] 20mg QD Take 1 tablet (20 mg total) by mouth nightly. Meredith butts Lisinopril 5 MG oral Tablet 12-14 00:00: 00 Yes [id number] 5mg QD Take 1 tablet (5 mg total) by mouth daily. Meredith butts Metoprolol Succinate 50 MG oral TABLET SR 24 HR 12-14 00:00: 00 Yes [id number] 50mg QD Take 1 tablet (50 mg total) by mouth daily. Meredith butts Omeprazole 20 MG oral Delayed Release Capsule 12-14 00:00: 00 07-25 00:00 :00 No [id number] 20mg QD Take 1 capsule (20 mg total) by mouth daily. Meredith butts Sertraline HCl 100 MG oral Tablet 12-14 00:00: 00 07-25 00:00 :00 No [id number] 100mg QD Take 1 tablet (100 mg total) by mouth daily. Meredith butts Sertraline HCl 50 MG oral Tablet 12-14 00:00: 00 07-25 00:00 :00 No [id number] 50mg QD Take 1 tablet (50 mg total) by mouth daily. Meredith butts Sertraline HCl 50 MG oral Tablet 19 00:00: 00 12-14 00:00 :00 No [id number] 50mg QD TAKE 1 TABLET (50 MG TOTAL) BY MOUTH DAILY Meredith butts Sertraline HCl 100 MG oral Tablet 8-19 00:00: 00 12-14 00:00 :00 No [id number] 100mg QD TAKE 1 TABLET (100 MG TOTAL) BY MOUTH DAILY Meredith butts Metoprolol Succinate 50 MG oral TABLET SR 24 HR 11-09 00:00: 00 12-14 00:00 :00 No [id number] 50mg QD Take 1 tablet (50 mg total) by mouth daily. Meredith butts Lisinopril 5 MG oral Tablet 11-09 00:00: 00 12-14 00:00 :00 No [id number] 5mg QD Take 1 tablet (5 mg total) by mouth daily. Meredith butts Atorvastati n Calcium 20 MG oral Tablet 11-09 00:00: 00 12-14 00:00 :00 No [id number] 20mg QD Take 1 tablet (20 mg total) by mouth nightly. Meredith butts Trazodone HCl 50 MG oral Tablet 09-02 00:00: 00 12-14 00:00 :00 No [id number] 50mg QD Take 1 tablet (50 mg total) by mouth nightly. Meredith butts Omeprazole 20 MG oral Delayed Release Capsule 09-02 00:00: 00 12-14 00:00 :00 No [id number] 20mg QD Take 1 capsule (20 mg total) by mouth daily. Meredith butts Vitamin D, Ergocalcife rol, 1.25 MG (00515 UT) oral Capsule 425 00:00: 00 12-14 00:00 :00 No [id number] [id number] Q1W Take 1 capsule (50,000 units total) by mouth once a week. Meredith butts Trazodone HCl 50 MG oral Tablet 4-22 00:00: 00 09-02 00:00 :00 No [id number] 50mg Take 1 tablet (50 mg total) by mouth nightly. Meredith Seybold - Externa l Omeprazole 20 MG oral Delayed Release Capsule 4-22 00:00: 00 09-02 00:00 :00 No [id number] 20mg Take 1 capsule (20 mg total) by mouth daily. Meredith Duarte Externa l Cyclobenzap rine HCl 5 MG oral Tablet 9-28 00:00: 00 08-02 00:00 :00 No [id number] 5mg Q.[id number] 3D Take 1 tablet (5 mg total) by mouth 3 times daily as needed for muscle spasms. Meredith butts Omeprazole 20 MG oral Delayed Release Capsule 01-08 00:00: 00 08-02 00:00 :00 No [id number] 20mg Take 1 capsule (20 mg total) by mouth daily. Meredith butts Topiramate 50 MG oral Tablet 9-12 00:00: 00 08-02 00:00 :00 No [id number] 50mg Take 1 tablet (50 mg total) by mouth 2 times daily. Meredith butts hydrOXYzine HCl 10 MG oral Tablet -12 00:00: 00 08-02 00:00 :00 No [id number] 10mg Q.[id number] 3D Take 1 tablet (10 mg total) by mouth 3 times daily as needed for itching or anxiety. Meredith butts Cefdinir 300 MG oral Capsule 9-08 00:00: 00 08-02 00:00 :00 No [id number] 300mg Take 1 capsule (300 mg total) by mouth 2 times daily. Meredith butts Gabapentin 100 MG oral Capsule 8-16 00:00: 00 07-25 00:00 :00 No Take 1 capsule twice a day by oral route as needed for 30 days. Meredith Duarte Externa l Sertraline HCl 100 MG oral Tablet 0 8-08 00:00: 00 Yes [id number] 100mg Take 1 tablet (100 mg total) by mouth daily Meredith butts Sertraline HCl 50 MG oral Tablet 11-18 00:00: 00 Yes [id number] 50mg Take 1 tablet (50 mg total) by mouth daily Meredith butts Topiramate 25 MG oral Tablet 11-18 00:00: 00 12-23 00:00 :00 No [id number] 25mg Take 1 tablet (25 mg total) by mouth 2 times daily Meredith butts Semaglutide -Weight Management (Wegovy) 0.25 MG/0.5ML subcutaneou s Solution Auto-inject or 11-18 00:00: 00 12-23 00:00 :00 No [id number] .25mg Inject 0.25 mg into the skin once a week Meredith butts Atorvastati n Calcium 20 MG oral Tablet 11-04 00:00: 00 Yes [id number] 20mg Take 1 tablet (20 mg total) by mouth daily Meredith butts Lisinopril 5 MG oral Tablet 11-04 00:00: 00 Yes [id number] 5mg Take 1 tablet (5 mg total) by mouth daily Meredith butts Metoprolol Succinate 50 MG oral TABLET SR 24 HR 11-04 00:00: 00 Yes [id number] 50mg Take 1 tablet (50 mg total) by mouth daily Meredith butts Sertraline HCl 100 MG oral Tablet 10-21 00:00: 00 Yes [id number] 100mg Take 1 tablet (100 mg total) by mouth daily Meredith butts Sertraline HCl 50 MG oral Tablet 10-21 00:00: 00 Yes [id number] 50mg Take 1 tablet (50 mg total) by mouth daily Meredith butts buPROPion HCl 100 MG oral Tablet 10-21 00:00: 00 12-23 00:00 :00 No [id number] 100mg Take 1 tablet (100 mg total) by mouth daily Meredith butts Sertraline HCl 150 MG oral Capsule 10-21 00:00: 10-21 00:00 :00 No [id number] 1{capsu le} Take 1 capsule by mouth daily Meredith butts Nitrofurant oin Monohyd Macro (Macrobid) 100 MG oral Capsule 09-26 00:00: 00 Yes [id number] 100mg Take 1 capsule (100 mg total) by mouth 2 times daily Meredith butts hydrOXYzine HCl 10 MG oral Tablet 09-23 00:00: 00 12-23 00:00 :00 No [id number] 10mg Q.[id number] 3D Take 1 tablet (10 mg total) by mouth 3 times daily as needed for itching or anxiety Meredith butts Sertraline HCl 100 MG oral Tablet 09-23 00:00: 00 10-21 00:00 :00 No [id number] 100mg Take 1 tablet (100 mg total) by mouth daily Meredith butts Sertraline HCl 50 MG oral Tablet 08-26 00:00: 00 Yes [id number] 50mg Take 1 tablet (50 mg total) by mouth daily Meredith butts Propranolol HCl 10 MG oral Tablet 08-26 00:00: 00 Yes [id number] 20mg Take 2 tablets (20 mg total) by mouth 3 times daily Meerdith butts Cariprazine HCl 1.5 MG oral Capsule 07-29 15:21: 08 07-29 00:00 :00 No 1{capsu le} Take 1 capsule by mouth daily Meredith butts Sertraline HCl 25 MG oral Tablet 07-29 00:00: 00 Yes [id number] 25mg Take 1 tablet (25 mg total) by mouth daily Meredith butts Metoprolol Succinate 50 MG oral TABLET SR 24 HR 12-06 00:00: 00 Yes [id number] 50mg Take 1 tablet (50 mg total) by mouth daily Meredith Duarte Externpeter butts Atorvastati n Calcium 20 MG oral Tablet 12-06 00:00: 00 Yes [id number] 20mg Take 1 tablet (20 mg total) by mouth daily Meredith butts Lisinopril 5 MG oral Tablet 8- 00:00: 00 Yes [id number] 5mg Take 1 tablet (5 mg total) by mouth daily Meredith butts metformin ER 500 mg 24 hr tablet 09-12 00:00: 00 Yes [facility] metoprolol succinate XL 50 mg 24 hr tablet 09-12 00:00: 00 Yes [facility] atorvastati n 20 mg tablet Take 1 tablet every day by oral route. atorvastati n 20 mg tablet Take 1 tablet every day by oral route. No 1 Q1D atorvastat in 20 mg tablet Take 1 tablet every day by oral route. [facility] lisinopril 5 mg tablet Take 1 tablet every day by oral route. lisinopril 5 mg tablet Take 1 tablet every day by oral route. No 1 Q1D lisinopril 5 mg tablet Take 1 tablet every day by oral route. [facility] metoprolol succinate ER 50 mg capsule sprinkle, ext. release 24 hr Take 1 capsule every day by oral route. metoprolol succinate ER 50 mg capsule sprinkle, ext. release 24 hr Take 1 capsule every day by oral route. No 1capsul e(s) Q1D metoprolol succinate ER 50 mg capsule sprinkle, ext. release 24 hr Take 1 capsule every day by oral route. [facility] sertraline 100 mg tablet Take 1 tablet every day by oral route. sertraline 100 mg tablet Take 1 tablet every day by oral route. No 1 Q1D sertraline 100 mg tablet Take 1 tablet every day by oral route. [facility] Vitamin D3 Vitamin D3 No Vitamin D3 [facility] Immunizations Ordered Immunization Name Filled Immunization Name Date Status Comments Source Covid-19 Vaccine Moderna (Spikevax), Mrna-lnp, Tej Protein, Pf 2020-07-19 00:00:00 Completed Meredith Lozano Covid-19 Vaccine Moderna (Spikevax), Mrna-lnp, Tej Protein, 2020-07-19 00:00:00 Completed Meredith Duarte External Covid-19 Vaccine Moderna (Spikevax), Mrna-lnp, Tej Protein, 2020-07-19 00:00:00 Completed Meredith Seybold - External Covid-19 Vaccine Moderna (Spikevax), Mrna-lnp, Tej Protein, Pf 2020-07-19 00:00:00 Completed Meredith Seybold - External Covid-19 Vaccine Moderna (Spikevax), Mrna-lnp, Tej Protein, Pf 2020-07-19 00:00:00 Completed Meredith Seybold - External Covid-19 Vaccine Moderna (Spikevax), Mrna-lnp, Tej Protein, Pf 2020-07-19 00:00:00 Completed Meredith Seybold - External Covid-19 Vaccine Moderna (Spikevax), Mrna-lnp, Tej Protein, Pf 2020-07-19 00:00:00 Completed Meredith Seybold - External Covid-19 Vaccine Moderna (Spikevax), Mrna-lnp, Tej Protein, 2020-07-19 00:00:00 Completed Meredith Seybold - External Covid-19 Vaccine Moderna (Spikevax), Mrna-lnp, Tej Protein, 2020-06-21 00:00:00 Completed Meredith Seybold - External Covid-19 Vaccine Moderna (Spikevax), Mrna-lnp, Tej Protein, 2020-06-21 00:00:00 Completed Meredith Seybold - External Covid-19 Vaccine Moderna (Spikevax), Mrna-lnp, Tej Protein, 2020-06-21 00:00:00 Completed Meredith Seybold - External Covid-19 Vaccine Moderna (Spikevax), Mrna-lnp, Tej Protein, Pf 2020-06-21 00:00:00 Completed Meredith Seybold - External Covid-19 Vaccine Moderna (Spikevax), Mrna-lnp, Tej Protein, 2020-06-21 00:00:00 Completed Meredith Seybold - External Covid-19 Vaccine Moderna (Spikevax), Mrna-lnp, Tej Protein, 2020-06-21 00:00:00 Completed Meredith Seybold - External Covid-19 Vaccine Moderna (Spikevax), Mrna-lnp, Tej Protein, Pf 2020-06-21 00:00:00 Completed Meredith Colladoybold - External Covid-19 Vaccine Moderna (Spikevax), Mrna-lnp, Tej Protein, Pf 2020-06-21 00:00:00 Completed Meredith Colladoybold - External Covid-19 Vaccine Moderna (Spikevax), Mrna-lnp, Tej Protein, Pf Unknown Completed Meredith Colladoybold - External Covid-19 Vaccine Moderna (Spikevax), Mrna-lnp, Tej Protein, Pf Unknown Completed Meredith Seybold - External Covid-19 Vaccine Moderna (Spikevax), Mrna-lnp, Tej Protein, Pf Unknown Completed Meredith Seybold - External Covid-19 Vaccine Moderna (Spikevax), Mrna-lnp, Tej Protein, Pf Unknown Completed Meredith Colladoybold - External Shingles IM (Shingrix) Unknown Completed Meredith Seybold - External Covid-19 Vaccine Moderna (Spikevax), Mrna-lnp, Tej Protein, Pf Unknown Completed Meredith Colladoybold - External Shingles IM (Shingrix) Unknown Completed Meredith Colladoybold - External Covid-19 Vaccine Moderna (Spikevax), Mrna-lnp, Tej Protein, Pf Unknown Completed Meredith Colladoybold - External Shingles IM (Shingrix) Unknown Completed Meredith Montoya - External Vital Signs Vital Name Observation Time Observation Value Comments S ource Systolic blood pressure 2024-07-25 14:50:00 112 mm[Hg] Meredith Coronado ld - External Diastolic blood pressure 2024-07-25 14:50:00 74 mm[Hg] Meredith Coronado ld - External Heart rate 2024-07-25 14:50:00 93 /min Reginose adolfo Montoya - External Body temperature 2024-07-25 14:50:00 36.94 Stefany Meredith Montoya - External Respiratory rate 2024-07-25 14:50:00 14 /min Meredith Montoya - External Body height 2024-07-25 14:50:00 165.1 cm Joy mccarthy Seybold - External Body weight 2024-07-25 14:50:00 99.338 kg Joy mccarthy Seybold - External BMI 2024-07-25 14:50:00 36.44 kg/m2 Joy ey Seybold - External Oxygen saturation in Arterial blood by Pulse oximetry 2024-07-25 14:50:00 97 /min Meredith Seybo ld - External BP Systolic 2023-12-31 00:00:00 126 mm[Hg] [facility] BMI (Body Mass Index) 2023-12-31 00:00:00 38.3 kg/m2 [facility] Body Weight 2023-12-31 00:00:00 230 [lb_av] [facility] BP Diastolic 2023-12-31 00:00:00 75 mm[Hg] [facility] Height 2023-12-31 00:00:00 65 [in_i] [facility] Systolic blood pressure 2023-12-15 19:17:00 110 mm[Hg] Meredith Seybo ld - External Diastolic blood pressure 2023-12-15 19:17:00 74 mm[Hg] Meredith Seybo ld - External Heart rate 2023-12-15 19:17:00 84 /min Kelse y Seybold - External Body temperature 2023-12-15 19:17:00 36.33 Stefany Meredith Seybold - External Respiratory rate 2023-12-15 19:17:00 15 /min Meredith Seybold - External Body height 2023-12-15 19:17:00 165.1 cm Joy ey Seybold - External Body weight 2023-12-15 19:17:00 106.595 kg Joy ey Seybold - External BMI 2023-12-15 19:17:00 39.11 kg/m2 Joy ey Seybold - External Systolic blood pressure 2023-09-03 19:53:00 132 mm[Hg] [...] External Heart rate 2023-08-03 20:23:00 74 /min Reginose y Seybold - External Body temperature 2023-08-03 [...] blood pressure 2023-01-08 12:52:00 70 mm[Hg] Meredith Colladoybo ld - External Heart rate 2023-01-08 12:52:00 [...] External Body weight 2022-12-17 16:12:00 103.42 kg Ojy ey Seybold - External BMI 2022-12-17 16:12:00 [...] External Heart rate 2022-10-21 19:29:00 88 /min Teresita y Seybold - External Body temperature 2022-10-21 [...] External Heart rate 2022-07-29 19:50:00 82 /min Kelse y Seybold - External Body temperature 2022-07-29 19:50:00 37.17 Stefany Meredith Seybold - External Respiratory rate 2022-07-29 19:50:00 15 /min Meredith Montoya - External Body height 2022-07-29 19:50:00 165.1 cm Joy mccarthy Seybold - External Body weight 2022-07-29 19:50:00 103.42 kg Joy mccarthy Seybold - External BMI 2022-07-29 19:50:00 37.94 kg/m2 Joy Montoya - External Oxygen saturation in Arterial blood by Pulse oximetry 2022-07-29 19:50:00 99 /min Meredith Sejose g ld - External Systolic blood pressure 2019-10-06 20:46:00 134 mm[Hg] [facility] Diastolic blood pressure 2019-10-06 20:46:00 92 mm[Hg] [facility] Heart rate 2019-10-06 20:43:00 66 /min [facility] Body temperature 2019-10-06 20:43:00 37.61 Stefany [facility] Respiratory rate 2019-10-06 20:43:00 17 /min [facility] Body height 2019-10-06 20:43:00 [facility].4 cm [facility] Body weight 2019-10-06 20:43:00 94.802 [facility] BMI 2019-10-06 20:43:00 34.25 kg/m2 [facility] Oxygen saturation in Arterial blood by Pulse oximetry 2019-10-06 20:43:00 99 /min [facility] Procedures Procedure Date / Time Performed Performing Clinician Source MAMMO, screening, digital, bilateral 2023-12-31 00:00:00 [facility] URINALYSIS NONAUTO W/O SCOPE 2022-12-17 16:21:20 Heron Dubon Jan - External Laparoscopy 2015-08-12 00:00:00 [facility] Hysteroscopy with Biopsy 2015-04-13 00:00:00 [facility] Cholecystectomy (Gallbladder) [facility] Appendectomy [facility] Encounters Start Date/Time End Date/Time Encounter Type Admission Type Attending [facility] Care [facility] Care Department Encounter ID Source 2024-07-28 15:00:00 2024-07-28 15:00:00 Outpatient MEREDITH MEREDITH [id number] Meredith yblizandro 2024-07-27 00:00:00 2024-07-27 00:00:00 Outpatient MILLER KARIMI [facility]LEY [id number] Meredith Colladoyblizandro 2024-07-25 11:50:00 2024-07-25 11:50:00 Outpatient LAB90 MEREDITH BEASLEY [id number] Meredith Seybold 2024-07-25 10:00:00 2024-07-25 10:00:00 Outpatient MILLER KARIMI MEREDITH [id number] Meredith Seybold 2024-07-12 13:45:00 2024-07-12 13:45:00 Outpatient MEREDITH BEASLEY [id number] Meredith Seybold 2024-07-12 13:40:00 2024-07-12 13:40:00 Outpatient MEREDITH BEASLEY [id number] Meredith Seybold 2024-07-12 00:00:00 2024-07-12 00:00:00 Outpatient MILLER KARIMI [facility] [id number] Meredith Seybold 2024-07-12 00:00:00 2024-07-12 00:00:00 Outpatient TREV MILLER MEREDITH BEASLEY [id number] Meredith Seybold 2024-06-13 08:30:00 2024-06-13 08:30:00 Outpatient NOMAN OBRIEN [facility] [id number] Meredith Seybold 2024-05-26 00:00:00 2024-05-26 00:00:00 Outpatient TREV MILLER [facility] [id number] Meredith Seybold 2024-05-25 12:40:00 2024-05-25 12:40:00 Outpatient MEREDITH BEASLEY [id number] Meredith Seybold 2024-05-12 00:00:00 2024-05-12 00:00:00 Outpatient DONGRoel MILLER BEASLEY [id number] Meredith Seybold 2024-04-22 00:00:00 2024-04-22 00:00:00 Outpatient HERON DUBON [id number] Meredith Seybold 2024-02-02 00:00:00 2024-02-02 00:00:00 Outpatient MD MEREDITH JOE [id number] Meredith Montoya 2024-02-02 00:00:00 2024-02-02 00:00:00 Outpatient MD MEREDITH JOE [id number] Meredith Montoya 2023-12-31 00:00:00 2023-12-31 00:00:00 Gillian Sosa, UNION REPRESENTATIVE: [address], [facility] [address], [place] [address] , Ph. [facility] - GC_GCBZW_[facility]* [id number] [facility] 2023-12-30 00:00:00 2023-12-30 00:00:00 Outpatient MILLER KARIMI [id number] [facility] 2023-12-17 00:00:00 2023-12-17 00:00:00 Outpatient MILLER KARIMI [id number] [facility] 2023-12-15 15:15:00 2023-12-15 15:15:00 Outpatient LAB90 [facility] [id number] [facility] 2023-12-15 14:30:00 2023-12-15 14:30:00 Outpatient MILLER KARIMI [id number] [facility] 2023-11-30 00:00:00 2023-11-30 00:00:00 Outpatient MILLER KARIMI [id number] [facility] 2023-11-12 00:00:00 2023-11-12 00:00:00 Outpatient MILLER KARIMI [id number] Meredith Seybold 2023-11-09 00:00:00 2023-11-09 00:00:00 Outpatient HERON DUBON [id number] Meredith Seybold 2023-11-09 00:00:00 2023-11-09 00:00:00 Outpatient HERON DUBON [id number] Meredith Seybold 2023-10-09 00:00:00 2023-10-09 00:00:00 Outpatient TREV MILLER BEASLEY [id number] [facility] 2023-09-03 15:00:00 2023-09-03 15:00:00 Outpatient TREV MILLER BEASLEY [id number] [facility] 2023-08-31 00:00:00 2023-08-31 00:00:00 Outpatient MD MEREDITH JOE [id number] [facility] 2023-08-17 00:00:00 2023-08-17 00:00:00 Outpatient MD MEREDITH JOE [id number] [facility] 2023-08-17 00:00:00 2023-08-17 00:00:00 Outpatient [facility]ILLER KARIMI [id number] [facility] 2023-08-06 00:00:00 2023-08-06 00:00:00 Outpatient MILLER KARIMI [id number] [facility] 2023-08-03 16:20:00 2023-08-03 16:20:00 Outpatient XIOMYGlenis MEREDITH BEASLEY [id number] [facility] 2023-08-03 15:30:00 2023-08-03 15:30:00 Outpatient MILLER KARIMI [id number] [facility] 2023-01-13 00:00:00 2023-01-13 00:00:00 Outpatient GC_GCBZW_Ka diyala_S PRIV PRIV [id number] [facility] 2023-01-13 00:00:00 2023-01-13 00:00:00 Outpatient GC_GCBZW_Ka diyala_S PRIV PRIV [id number] [facility] 2023-01-08 08:00:00 2023-01-08 08:00:00 Outpatient MILLER KARIMI [id number] [facility] 2023-01-06 00:00:00 2023-01-06 00:00:00 Outpatient MILLER KARIMI [id number] [facility] 2022-12-29 16:15:00 2022-12-29 16:15:00 Outpatient LAB90 MEREDITH BEASLEY [id number] [facility] 2022-12-29 00:00:00 2022-12-29 00:00:00 Outpatient HERON DUBON [facility] [id number] [facility] 2022-12-23 16:00:00 2022-12-23 16:00:00 Outpatient TREV MILLER BEASLEY [id number] [facility] 2022-12-19 16:00:00 2022-12-19 16:00:00 Outpatient TREV MILLER BEASLEY [id number] [facility] 2022-12-19 00:00:00 2022-12-19 00:00:00 Outpatient HERON DUBON [facility] [id number] [facility] 2022-12-17 16:25:00 2022-12-17 16:25:00 Outpatient LAB90 MEREDITH BEASLEY [id number] [facility] 2022-12-17 11:15:00 2022-12-17 11:15:00 Outpatient HERON DUBON [facility] [id number] [facility] 2022-12-15 00:00:00 2022-12-15 00:00:00 Outpatient AGUILERA, PATRICK [facility] [id number] [facility] 2022-11-27 00:00:00 2022-11-27 00:00:00 Outpatient GC_GCBZW_Ka diyala_S PRIV PRIV [id number] [facility] 2022-11-26 00:00:00 2022-11-26 00:00:00 Outpatient GC_GCBZW_Ka diyala_S PRIV PRIV [id number] [facility] 2022-11-18 16:30:00 2022-11-18 16:30:00 Outpatient MILLER KARIMI [facility] [id number] [facility] 2022-11-04 00:00:00 2022-11-04 00:00:00 Outpatient GC_GCBZW_Ka diyala_S PRIV PRIV [id number] [facility] 2022-11-03 00:00:00 2022-11-03 00:00:00 Outpatient DALE DUBONAND [facility] [id number] [facility] 2022-10-30 00:00:00 2022-10-30 00:00:00 Outpatient MILLER KARIMI [id number] [facility] 2022-10-29 00:00:00 2022-10-29 00:00:00 Outpatient GC_GCBZW_Ka diyala_S PRIV PRIV [id number] [facility] 2022-10-21 14:30:00 2022-10-21 14:30:00 Outpatient MILLER KARIMI [id number] [facility] 2022-10-02 13:00:00 2022-10-02 13:00:00 Outpatient BRIGETTE GUTIERREZ [id number] [facility] 2022-10-02 00:00:00 2022-10-02 00:00:00 Outpatient MD MEREDITH JOE [id number] [facility] 2022-09-26 00:00:00 2022-09-26 00:00:00 Outpatient [facility]ILLER KARIMI [id number] [facility] 2022-09-23 13:45:00 2022-09-23 13:45:00 Outpatient LAB90 [facility] [id number] [facility] 2022-09-23 13:00:00 2022-09-23 13:00:00 Outpatient MILLER KARIMI [id number] [facility] 2022-09-23 00:00:00 2022-09-23 00:00:00 Outpatient MILLER KARIMI [id number] [facility] 2022-08-26 11:00:00 2022-08-26 11:00:00 Outpatient MILLER KARIMI [id number] [facility] 2022-07-29 15:00:00 2022-07-29 15:00:00 Outpatient PREZAS, HERON BEASLEY MEREDITH [id number] Meredith Montoya 2022-07-29 00:00:00 2022-07-29 00:00:00 Outpatient MEREDITH TAVAREZ [id number] Meredith Montoya 2021-12-06 10:00:00 2021-12-06 10:30:00 Office Visit EddieFarheen [id number] Meredith Montoya 2019-10-07 00:00:00 2019-10-07 00:00:00 Letter (Out) Doctor Unassigned, [place] [facility] [id number] [facility] 2019-10-07 00:00:00 2019-10-07 00:00:00 Letter (Out) Stanton Lentz [facility] [id number] [facility] 2019-10-07 00:00:00 2019-10-07 00:00:00 Telephone Rosina Naranjo [facility] [id number] [facility] 2019-10-06 15:17:18 2019-10-06 16:11:22 [facility] Care Pob[facility] [id number] [id number] [facility] 2019-10-06 15:20:00 2019-10-06 15:20:00 Outpatient R PUJA BREWSTER [facility] [id number] [facility] Results Test Description Test Time Test Comments Results Result Co mments Source Meredith Montoya - ExternalSCR MAMM BILATERAL TRISTON CAD [id number] 12:39:51 Name: Vicki : 1970 Sex: F - SCR MAMM BILATERAL TRISTON CAD DIGITALBILATERAL DIGITAL SCREENING MAMMOGRAM 3D/2D WITH CAD: 05/06/2022LINICAL: Asymptomatic. Digital breast tomosynthesis was performed in addition to routine CC and MLO views. Current mammographic images were evaluated by [employer] CAD (computer-aided detection) software. Comparison is made to examdated 04/18/2020 mammogram - [facility]. There are scattered fibroglandular tissues [...] 12:39:51 Attending Technologist: Angela Roberson MM, [facility] [employer] MammographyImaging Technologist: Sunita Ferrara MM, [facility] [employer] Mammographyletter sent: BIRADS 1-2 Normal Mammogram BI-RADS: 2 BenignSCR MAMM BILATERAL TRISTON CAD [id number] 12:39:51 Name: , Vicki : 1970 Sex: F - SCR MAMM BILATERAL TRISTON CAD DIGITALBILATERAL DIGITAL SCREENING MAMMOGRAM 3D/2D WITH CAD: 05/06/2022LINICAL: Asymptomatic. Digital breast tomosynthesis was performed in addition to routine CC and MLO views. Current mammographic images were evaluated by [email or web address] CAD (computer-aided detection) software. Comparison is made to examdated 04/18/2020 mammogram - [facility]. There are scattered fibroglandular tissues in both breasts. There is a benign appearing focal asymmetry in the right breast. No suspicious mass, architectural distortion, malignant type calcification, or lymph node abnormality detected. Breastarchitecture is stable compared to prior exams.IMPRESSION: BENIGNThere is no mammographic evidence of malignancy. Resume annual screening mammography in one year. (05/07/2023) Farheen correa cg/penrad:05/06/2022 12:39:51 Attending Technologist: Angela Roberson MM, [facility] MammographyImaging Technologist: Sunita Ferrara MM, [facility] Mammographyletter sent: BIRADS 1-2 Normal Mammogram BI-RADS: 2 BenignSCR MAMM BILATERAL TRISTON CAD [id number] 17:29:57 Name: Vicki: 1970 Sex: F - SCR MAMM BILATERAL TRISTON CAD DIGITALBILATERAL DIGITAL SCREENING MAMMOGRAM 3D/2D WITH CAD: 04/18/2020LINICAL: Asymptomatic. Digital breast tomosynthesis was performed in addition to routine CC and MLO views. Current mammographic images were evaluated by either a [employer] or a [employer] CAD (computer aided detection system). No prior exams were available for comparison. There are scattered fibroglandular tissues in both breasts. There are benign densities in both breasts. No suspicious mass, architectural distortion, malignant type calcification, or lymph node abnormality detected. IMPRESSION: BENIGNThere is no mammographic evidence of malignancy. Resume annual screening mammography in one year. Farheen Simms M.D. sccinthia/penrad:04/30/2020 17:29:57 Hat Former: Gianna Parekh MM, [facility] Mammographylettersent: BIRADS 1-2 Normal Mammogram BI-RADS: 2 Benign Notes Date/Time Note Provider Source 2024-07-25 09:54:30 Chief Complaint Patient presents with Back Pain Right lower back pain since yesterday. No injury. Pain feels like a pulsing pain that just started for no reason. She has a history of kidney stones Anna Marie Waggoner MA [facility] 2023-12-15 14:21:34 Chief Complaint Patient presents with Physical Patient is fasting. UTI Low abdominal pain. No other symptoms Anna Marie Waggoner MA II [facility] 2023-09-03 14:55:34 Chief Complaint Patient presents with Follow-up Follow up on insomnia and Vitamin D defiency Anna Marie Waggoner MA II [facility] 2023-08-03 15:31:07 Chief Complaint Patient presents with Referral Needs referral to cardiology and Blood work. C/O being fatigued all the time she thinks it might be anxiety. .Amy Frederick LVN [facility] 2022-12-23 16:05:39 Formatting of this n ote is different from the original. Chief Complaint Patient presents with Follow-up Follow up on Sertraline Anna Marie Waggoner MA II [facility] 2022-11-18 16:17:28 Formatting of this n ote might be different from the original. Patient is here for follow up, VSS, medications reconciled. [facility] 2022-10-21 14:34:52 Formatting of this n ote might be different from the original. Patient is here for physical and f/u on medications. VSS, medications reconciled. No concerns voiced at this time. [facility]
[2024-08-13] MEDS ORDERED: NA CHLORIDE 0.9% 3,000 ML ONE (17:47)
[2024-08-13 18:00] LABS: Absolute Basophils 0.1 K/uL (0-0.5); Absolute Lymphocytes (CBC) 1.5 K/uL (0.7-4.9); Absolute Monocytes 0.5 K/uL (0.1-1.3); Basophils % 0.6 % (0-1.3); Eosinophils % 0.4 % (0-4.4); Hematocrit 37.2 % (36.0-45.0); Hemoglobin 13.3 g/dL (12.0-15.0); Lymphocytes % 16.6 % (15.3-44.8); MCH 31.6 pg (27.0-35.0); MCHC 35.7 g/dL (32.0-36.0); MCV 88.7 fL (80-100); MPV 6.8 fL (7.6-11.3); Monocytes % 5.5 % (3.3-12.3); Neutrophils % 76.9 % (41.7-73.7); Nucleated Red Blood Cells % 0.1 % (0-0); Platelets 212 thou/uL (152-406); Red Cell Distribution Width 14.3 % (12.1-15.2)
[2024-08-13 18:06] LABS: PT Prothrombin Time 12.2 SECONDS (10-13.0); Protime INR 1.07
--- NOTE | 2024-08-13 18:15 | RAD REPORT ---
EXAMINATION: ONE VIEW CHEST XR CLINICAL INDICATION: Female, 53 years old.,COUGH TECHNIQUE: Frontal chest projection is submitted. Examination is limited by patient positioning and t echnique. COMPARISON: 11/14/2023 FINDINGS: The lungs are well inflated and clear. No pneumothorax or sizable effusion. The heart is normal in s ize. Mediastinal contours are unremarkable. IMPRESSION: No acute intrathoracic abnormalities.
[2024-08-13 18:17] LABS: Specific Gravity 1.015 (1.005-1.030); Urine Bacteria <20 /HPF (<20); Urine Bilirubin NEGATIVE (Negative); Urine Blood 2+ (Negative); Urine Clarity Extremely Turbid (Clear); Urine Color Yellow (Yellow); Urine Crystals Unidentified Few /HPF (None Seen); Urine Culture Reflex Order NOT NEEDED; Urine Glucose NEGATIVE (Negative); Urine Ketones 1+ (Negative); Urine Microscopic Reflex YN ORDER UMIC; Urine Mucus 1+ /HPF (None Seen); Urine Nitrite NEGATIVE (Negative); Urine Protein 1+ (Negative); Urine Urobilinogen Normal (Normal); Urine WBC <5 /HPF (<5); Urine pH 5.5 (5.0-7.0)
[2024-08-13 18:32] LABS: Albumin/Globulin Ratio 1.1 (1.1-1.8); Anion Gap 14.6 mEq/L (5.0-15.0); Bilirubin Direct 0.3 mg/dL (0-0.2); Bilirubin Indirect, Calculated 0.4 mg/dL (0.2-0.8); Bilirubin Total 0.7 mg/dL (0.2-1.0); Globulin 3.6 g/dL (2.3-3.5); Magnesium 1.8 mg/dL (1.6-2.4); Potassium 3.6 mEq/L (3.5-5.1); Protein, Total 7.6 g/dL (6.4-8.2); Troponin High Sensitivity 11.3 pg/mL (<58.9)
--- NOTE | 2024-08-13 18:37 | EDPHYS ---
Physician Documentation [facility] Name: Vicki Peace Age: 53 yrs Sex: Female : 1970 Arrival Date: 08/13/2024 Time: 15:59 Bed 17 Private MD: ED Physician Willy Garcia HPI: 08/13 18:07 This 53 yrs old Female presents to ER via EMS with complaints of Near Syncope.michaelle SIMULATION TECH: 18:56 Not kj2 Historical: - Allergies: 16:57 PENICILLINS; kj2 16:57 Sulfa (Sulfonamide Antibiotics); kj2 - Home Meds: 16:57 Metoprolol Tartrate Oral [Active]; kj2 - PMHx: 16:57 Hypercholesterolemia; Hypertensive disorder; kj2 - PSHx: 16:57 Appendectomy; Cholecystectomy; tubal ligation; kj2 - Immunization history:: Adult Immunizations unknown. - Infectious Disease History:: Denies. - Social history:: Smoking status: unknown. ROS: 18:07 Constitutional: Negative for fever, chills, and weight loss, Eyes: Negative for injury, michaelle pain, redness, and discharge, ENT: Negative for injury, pain, and discharge, Neck: Negative for injury, pain, and swelling, Cardiovascular: Negative for chest pain, palpitations, and edema, Respiratory: Negative for shortness of breath, cough, wheezing, and pleuritic chest pain, Abdomen/GI: Negative for abdominal pain, nausea, vomiting, diarrhea, and constipation, Back: Negative for injury and pain, : Negative for injury, bleeding, discharge, and swelling, MS/Extremity: Negative for injury and deformity, Skin: Negative for injury, rash, and discoloration, Psych: Negative for depression, anxiety, suicide ideation, homicidal ideation, and hallucinations, Allergy/Immunology: Negative for hives, rash, and allergies, Endocrine: Negative for neck swelling, polydipsia, polyuria, polyphagia, and marked weight changes, Hematologic/Lymphatic: Negative for swollen nodes, abnormal bleeding, and unusual bruising, 18:07 Neuro: Positive for altered mental status, dizziness, headache, near syncope, weakness, Exam: 18:07 Constitutional: This is a well developed, well nourished patient who is awake, alert, michaelle and in no acute distress. Head/Face: Normocephalic, atraumatic. Eyes: Pupils equal round and reactive to light, extra-ocular motions intact. Lids and lashes normal. Conjunctiva and sclera are non-icteric and not injected. Cornea within normal limits. Periorbital areas with no swelling, redness, or edema. ENT: Nares patent. No nasal discharge, no septal abnormalities noted. Tympanic membranes are normal and external auditory canals are clear. Oropharynx with no redness, swelling, or masses, exudates, or evidence of obstruction, uvula midline. Mucous membranes moist. Neck: Trachea midline, no thyromegaly or masses palpated, and no cervical lymphadenopathy. Supple, full range of motion without nuchal rigidity, or vertebral point tenderness. No Meningismus. Chest/axilla: Normal chest wall appearance and motion. Nontender with no deformity. No lesions are appreciated. Cardiovascular: Regular rate and rhythm with a normal S1 and S2. No gallops, murmurs, or rubs. Normal PMI, no JVD. No pulse deficits. Respiratory: Lungs have equal breath sounds bilaterally, clear to auscultation and percussion. No rales, rhonchi or wheezes noted. No increased work of breathing, no retractions or nasal flaring. Abdomen/GI: Soft, non-tender, with normal bowel sounds. No distension or tympany. No guarding or rebound. No evidence of tenderness throughout. Back: No spinal tenderness. No costovertebral tenderness. Full range of motion. Skin: Warm, dry with normal turgor. Normal color with no rashes, no lesions, and no evidence of cellulitis. MS/ Extremity: Pulses equal, no cyanosis. Neurovascular intact. Full, normal range of motion., bilateral aka Neuro: Awake and alert, GCS 15, oriented to person, place, time, and situation. Cranial nerves II-XII grossly intact. Motor strength 5/5 in all extremities. Sensory grossly intact. Cerebellar exam normal. Normal gait. Psych: Awake, alert, with orientation to person, place and time. Behavior, mood, and affect are within normal limits. 18:07 ECG was reviewed by the Attending Physician. 18:07 Neuro: Orientation: is normal, appropriate for stated age, no acute changes, per family, Mentation: is normal, Memory: is normal, appropriate for stated age, no acute changes, Cranial nerves: grossly normal, is grossly normal based on the patient's age, no acute changes, Cerebellar function: is grossly normal, is grossly normal based on the patient's age, no acute changes, Motor: moves all fours, strength is normal, Sensation: is normal, no obvious gross deficits, appropriate no acute changes, Gait: not tested. Deep tendon reflexes are 2+ (normal) in the bilateral brachioradialis, bicep, tricep and patellar and Achilles tendons, Babinski testing is normal, seizure activity, is not displayed by the patient, 19:12 ECG was reviewed by the Attending Physician. [facility] Vital Signs: 16:27 BP 146 / 80; Pulse 83; Resp 20; Temp 98.1; Pulse Ox 98% on R/A; Weight 96.16 kg; Height kj2 5 ft. 5 in. ; 17:30 BP 121 / 77; Pulse 81; Resp 18; Pulse Ox 100% on R/A; kj2 18:56 BP 124 / 76; Pulse 84; Resp 20; Temp 98; Pulse Ox 100% on R/A; kj2 16:27 Body Mass Index 35.28 (96.16 kg, 165.1 cm) kj2 NIH Stroke Scale Scores: 18:07 NIHSS Score: 0 michaelle MDM: 16:21 Medical Screening Exam initiated michaelle 18:35 Differential Diagnosis: aortic aneurysm, cardiac arrhythmia, cerebrovascular accident, michaelle drug effect, emotional response, GI bleed, idiopathic syncope, seizure, vasovagal episode. Data reviewed: vital signs, nurses notes, lab test result(s), EKG, radiologic studies, CT scan, plain films. Consideration of Admission/Observation Escalation of care including admission/observation considered. I considered the following discharge prescriptions or medication management in the emergency department Medications were administered in the Emergency Department. See MAR. Independent interpretation of the following test(s) in the Emergency Department EKG: See my EKG interpretation above. Historians other than the Patient: Spouse/Significant Other: well informed. Care significantly affected by the following chronic conditions: Hypertension, Obesity, glp meds. Counseling: I had a detailed discussion with the patient and/or guardian regarding the historical points, exam findings, and any diagnostic results supporting the discharge/admit diagnosis, lab results, radiology results, the need for outpatient follow up, for definitive care, a peoplesoft financials, a family practitioner. 05/03 17:13 Order name: Basic Metabolic Panel [facility] 08/13 17:13 Order name: CBC with Diff; Complete Time: 18:07 [facility] 08/13 17:13 Order name: LFT's [facility] 08/13 17:13 Order name: Magnesium [facility] 08/13 17:13 Order name: NT PRO-BNP [facility] 08/13 17:13 Order name: PT-INR; Complete Time: 18:07 [facility] 08/13 17:13 Order name: Troponin HS [facility] 08/13 17:13 Order name: UA Rfx Moe Cult if indicated; Complete Time: 18:35 [facility] 08/13 17:13 Order name: Lipase [facility] 08/13 17:13 Order name: XRAY Chest (1 view); Complete Time: 18:35 [facility] 08/13 17:13 Order name: CT Head Brain wo Cont [facility] 08/13 17:13 Order name: EKG; Complete Time: 17:14 [facility] 08/13 17:13 Order name: Cardiac monitoring; Complete Time: 17:54 [facility] 08/13 17:13 Order name: EKG - Nurse/Tech; Complete Time: 17:54 [facility] 08/13 17:13 Order name: IV Saline Lock; Complete Time: 17:54 [facility] 08/13 17:13 Order name: Labs collected and sent; Complete Time: 17:54 [facility] 08/13 17:13 Order name: O2 Per Protocol; Complete Time: 17:54 [facility] 08/13 17:13 Order name: O2 Sat Monitoring; Complete Time: 17:54 [facility] 08/13 18:07 Order name: PO challenge; Complete Time: 18:57 [facility] EC:12 Rate is 82 beats/min. Rhythm is regular. QRS [place] is Normal. [place] interval is normal. QRS michaelle interval is normal. QT interval is normal. No Q waves. T waves are Normal. No ST changes noted. Clinical impression: NSR w/ Non-specific ST/T Changes, 1st degree heart block, and No evidence of ischemia. Interpreted by me. Reviewed by me. Administered Medications: 17:52 Drug: NS 0.9% IV (30 ml/kg) 30 ml/kg IV at bolus once; Sepsis Protocol; to be given as kj2 a bolus over 90 minutes Route: IV; Rate: bolus; Site: left hand; Disposition Summary: 08/13/24 18:37 Discharge Ordered Notes: Location: Home michaelle Problem: new michaelle Symptoms: have improved michaelle Condition: Stable michaelle Diagnosis - Syncope Near michaelle - Weakness michaelle - Adverse effect of unspecified drugs, medicaments and biological substances michaelle - Dehydration michaelle Followup: michaelle - With: Private Physician - When: 2 - 3 days - Reason: Recheck today's complaints, Continuance of care, Re-evaluation by your physician Discharge Instructions: - Discharge Summary Sheet michaelle - Dehydration, Adult michaelle - Near-Syncope michaelle - Weakness michaelle - Fatigue michaelle - Near-Syncope, Eeyb-bg-Kmhb michaelle - Weakness, Iurm-vn-Okok michaelle - Dehydration, Adult, Lcig-hh-Pqnk michaelle - Rehydration, Adult michaelle Forms: - Medication Reconciliation Form michaelle - Antibiotic Education michaelle - Prescription Opioid Use michaelle - Patient Portal Instructions michaelle - Leadership Thank You Letter [facility] NIH Stroke Scale - NIH Stroke Score Date: 08/13/2024 Time: 18:07 Total Score = 0 10. Dysarthria (speech clarity - read or repeat words) - 0(Normal) 11. Extinction and Inattention (visual/tactile/auditory/spatial/personal) - 0(No abnormality) 1a. Level of Consciousness (LOC) - 0(Alert) 1b. Level of Consciousness (LOC) (Month \T\ Age) - 0(Both) 1c. LOC Commands (Open \T\ Closes Eyes/Dormitory Keeper) - 0(Both) 2. Best Gaze (Lateral Gaze Paresis) - 0(Normal) 3. Visual Field Loss - 0(No visual loss) 4. Facial Palsy - 0(Normal) 5a. Left Arm: Motor (10-second hold) - 0(No drift) 5b. Right Arm: Motor (10-second hold) - 0(No drift) 6a. Left Leg: Motor (5-second hold - always test supine) - 0(No drift) 6b. Right Leg: Motor (5-second hold - always test supine) - 0(No drift) 7. Limb Ataxia (finger/nose \T\ heel/tong - test with eyes open) - 0(Absent) 8. Sensory Loss (pinprick arms/legs/face) - 0(Normal) 9. Best Language: Aphasia (description/naming/reading) - 0(No aphasia) Initials: [facility] Signatures: Dispatcher [employer] EDWilly Forrester MD MD cha Jordan, Krystal RN RN kj2 Corrections: (The following items were deleted from the chart) 17:14 17:13 BASIC METABOLIC PANEL+C.LAB.BRZ ordered. EDMS EDMS 17:14 17:13 CBC+H.LAB.BRZ ordered. EDMS EDMS 17:14 17:13 HEPATIC FUNCTION+C.LAB.BRZ ordered. EDMS EDMS 17:14 17:13 MAGNESIUM+C.LAB.BRZ ordered. EDMS EDMS 17:14 17:13 PROBNP+C.LAB.BRZ ordered. EDMS EDMS 17:14 17:13 PROTIME (+INR)+COAG.LAB.BRZ ordered. EDMS EDMS 17:14 17:13 Troponin High Sensitivity+C.LAB.BRZ ordered. EDMS EDMS 17:14 17:13 UA Rfx Moe Cult if indicated+U.LAB.BRZ ordered. EDMS EDMS 17:14 17:13 LIPASE+C.LAB.BRZ ordered. EDMS EDMS
--- NOTE | 2024-08-13 18:37 | ER ---
Nurse's Notes [facility] Name: Vicki Peace Age: 53 yrs Sex: Female : 1970 Arrival Date: 08/13/2024 Time: 15:59 Bed 17 Private MD: Diagnosis: Syncope Near;Weakness;Adverse effect of unspecified drugs, medicaments and biological substances;Dehydration Presentation: 08/13 16:31 Chief complaint: EMS states: patient outside began to feel lightheaded, dizzy. kj2 Coronavirus screen: Client denies travel out of the [place] in the last 14 days. Ebola Screen: No symptoms or risks identified at this time. Initial Sepsis Screen: Does the patient meet any 2 criteria? No. Patient's initial sepsis screen is negative. Does the patient have a suspected source of infection? No. Patient's initial sepsis screen is negative. Risk Assessment: Do you want to hurt yourself or someone else? Patient reports no desire to harm self or others. Onset of symptoms. Care prior to arrival: Medication(s) given: Normal saline infusion, 1000 mL. 16:31 Method Of Arrival: EMS: [facility] kj2 16:31 Acuity: MARI 3 kj2 Triage Assessment: 16:30 General: Appears in no apparent distress. Behavior is calm, cooperative. Pain: Denies kj2 pain. Neuro: Level of Consciousness is awake, alert, obeys commands, Oriented to person, place, time. Cardiovascular: Patient's skin is warm and dry. Respiratory: Airway is patent Respiratory effort is even, unlabored. GI: No signs and/or symptoms were reported involving the gastrointestinal system. : No signs and/or symptoms were reported regarding the genitourinary system. 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 - Infectious Disease History:: Denies. - Social history:: Smoking status: unknown. Screenin:30 [facility] ED Fall Risk Assessment (Adult) History of falling in the last 3 months, kj2 including since admission No falls in past 3 months (0 pts) Confusion or Disorientation No (0 pts) Intoxicated or Sedated No (0 pts) Impaired Gait No (0 pts) Mobility Assist Device Used No (0 pt) Altered Elimination No (0 pt) Score/Fall Risk Level 0 - 2 = Low Risk Maintained a safe environment, Hourly rounding (assess needs \T\ fall precautionary measures) done. Abuse screen: Denies threats or abuse. Denies injuries from another. Nutritional screening: No deficits noted. Tuberculosis screening: No symptoms or risk factors identified. Assessment: 16:30 General: see triage assessement. kj2 17:30 Reassessment: Patient appears in no apparent distress at this time. Patient and/or kj2 family updated on plan of care and expected duration. Pain level reassessed. Patient is alert, oriented x 3, equal unlabored respirations, skin warm/dry/pink. 18:45 Reassessment: Patient appears in no apparent distress at this time. Patient and/or kj2 family updated on plan of care and expected duration. Pain level reassessed. Patient is alert, oriented x 3, equal unlabored respirations, skin warm/dry/pink. Vital Signs: 16:27 BP 146 / 80; Pulse 83; Resp 20; Temp 98.1; Pulse Ox 98% on R/A; Weight 96.16 kg; Height kj2 5 ft. 5 in. ; 17:30 BP 121 / 77; Pulse 81; Resp 18; Pulse Ox 100% on R/A; kj2 18:56 BP 124 / 76; Pulse 84; Resp 20; Temp 98; Pulse Ox 100% on R/A; kj2 16:27 Body Mass Index 35.28 (96.16 kg, 165.1 cm) kj2 NIH Stroke Scale Scores: 18:07 NIHSS Score: 0 [facility] ED Course: 16:08 Patient arrived in ED. em1 16:21 Willy Garcia MD is Attending Physician. michaelle 16:27 Lily Leslie, GUADALUPE is Primary Nurse. kj2 16:30 Patient has correct armband on for positive identification. Bed in low position. Call kj2 light in reach. Provided Education on: call light. 16:30 Arm band placed on Patient placed in an exam room, on a stretcher. kj2 16:57 Triage completed. kj2 17:00 Maintain EMS IV. Dressing intact. Good blood return noted. Site clean \T\ dry. Gauge \T\ kj 2 site: 20 in left hand. Flushed with 10 mL NS. 17:32 XRAY Chest (1 view) In Process Unspecified. EDMS 18:02 CT Head Brain wo Cont In Process Unspecified. EDMS 18:55 No provider procedures requiring assistance completed. IV discontinued, intact, kj2 bleeding controlled, No redness/swelling at site. Pressure dressing applied. Administered Medications: 17:52 Drug: NS 0.9% IV (30 ml/kg) 30 ml/kg IV at bolus once; Sepsis Protocol; to be given as kj2 a bolus over 90 minutes Route: IV; Rate: bolus; Site: left hand; Medication: 17:00 VIS not applicable for this client. kj2 Outcome: 18:37 Discharge ordered by . michaelle 18:55 Discharged to home ambulatory, with family, kj2 18:55 Condition: stable 18:55 Discharge instructions given to patient, Instructed on discharge instructions, follow up and referral plans. Demonstrated understanding of instructions, follow-up care, 19:18 Patient left the ED. kj2 NIH Stroke Scale - NIH Stroke Score Date: 08/13/2024 Time: 18:07 Total Score = 0 10. Dysarthria (speech clarity - read or repeat words) - 0(Normal) 11. Extinction and Inattention (visual/tactile/auditory/spatial/personal) - 0(No abnormality) 1a. Level of Consciousness (LOC) - 0(Alert) 1b. Level of Consciousness (LOC) (Month \T\ Age) - 0(Both) 1c. LOC Commands (Open \T\ Closes Eyes/Program Trainer) - 0(Both) 2. Best Gaze (Lateral Gaze Paresis) - 0(Normal) 3. Visual Field Loss - 0(No visual loss) 4. Facial Palsy - 0(Normal) 5a. Left Arm: Motor (10-second hold) - 0(No drift) 5b. Right Arm: Motor (10-second hold) - 0(No drift) 6a. Left Leg: Motor (5-second hold - always test supine) - 0(No drift) 6b. Right Leg: Motor (5-second hold - always test supine) - 0(No drift) 7. Limb Ataxia (finger/nose \T\ heel/tong - test with eyes open) - 0(Absent) 8. Sensory Loss (pinprick arms/legs/face) - 0(Normal) 9. Best Language: Aphasia (description/naming/reading) - 0(No aphasia) Initials: michaelle Signatures: Dispatcher [employer] Willy Gregg MD MD cha Martinez, Eric em1 Lily Leslie, RN RN kj2
--- NOTE | 2024-08-13 18:47 | RAD REPORT ---
EXAM: CT Head Brain Wo Cont HISTORY: SYNCOPE COMPARISON: None TECHNIQUE: Multiple contiguous axial images were obtained for a CT of the brain without contrast. Sag ittal and coronal reformats were performed. One or more of the following dose reduction techniques were used: Automated exposure control, adjus tment of the mA and kV according to patient size, and iterative reconstruction. Unless otherwise specified, incidental findings do not require dedicated imaging follow-up. FINDINGS: No evidence of hydrocephalus, intracranial hemorrhage, or extra-axial fluid collection. The brain is normal in morphology. The calvarium is intact. The visualized paranasal sinuses and mastoid air cells are essentially clear . IMPRESSION: No evidence of acute intracranial abnormality.
[2024-08-13 20:02] VITALS: O2SAT 100
[2024-08-13 20:03] VITALS: BP 124/76; TEMP 98
--- NOTE | 2024-08-15 12:08 | EKG ---
Test Date: 2024-08-13 Test Time: 18:59:04 Room Service Server: AM MEASUREMENT RESULTS: Intervals: Rate: 82 SC: 304 QRSD: 80 QT: 386 QTc: 450 [place]: P: 50 SC: 304 QRS: 35 T: 37 INTERPRETIVE STATEMENTS: Sinus rhythm with 1st degree AV block Cannot rule out Anterior infarct, age undetermined Abnormal ECG Compared to ECG 11/14/2023 00:54:56 First degree AV block now present Myocardial infarct finding now present Electronically Signed On 08-15-24 12:06:03 CDT by Atilio Lorenzo
== END 2024-08-13 19:18 | disposition home or self-care (01) ==
LOC: ER 15:59
DX: R55 Syncope and collapse (principal); R53.1 Weakness; T50.905A Adverse effect of unspecified drugs, medicaments and biological substances, initial encounter; E86.0 Dehydration; I10 Essential (primary) hypertension
CPT/HCPCS: 93005; 85025; 81001; 80048; 36415; 83735; 85610; 80076; 84484; 83690; 83880; 70450; 71045; 96374; 99284; J7030

== ENCOUNTER 2025-02-08 23:37 | Emergency (ER) | payer OTHER ==
[2025-02-09 02:05] LABS: PT Prothrombin Time 11.3 SECONDS (10-13.0); Protime INR 1.0
[2025-02-09 02:07] LABS: Absolute Lymphocytes (CBC) 2.0 K/uL (0.7-4.9); Hematocrit 38.2 % (36.0-45.0); Hemoglobin 13.3 g/dL (12.0-15.0); MCH 31.5 pg (27.0-35.0); MCHC 34.9 g/dL (32.0-36.0); MCV 90.3 fL (80-100); MPV 6.4 fL (7.6-11.3); Nucleated RBC Absolute Count 0.0 (0-0); Nucleated Red Blood Cells % 0.1 % (0-0); RBC Red Blood Cell Count 4.23 M/uL (3.86-4.86); White Blood Count 9.10 thou/uL (4.3-10.9)
--- NOTE | 2025-02-09 02:15 | RAD REPORT ---
EXAM: CT Head Without Intravenous Contrast CLINICAL HISTORY: elevated blood pressure TECHNIQUE: Axial computed tomography images of the head/brain without intravenous contrast. Sagittal and coron al reformatted images were created and reviewed. This CT exam was performed using one or more of the following dose reduction techniques: automated exposure control, adjustment of the mA and/or kV according to patient size, and/or use of iterative reconstruction technique. COMPARISON: CT Head dated 12/15/2024 FINDINGS: Brain: Unremarkable. No hemorrhage. No significant white matter disease. No edema. Ventricles: Unremarkable. No ventriculomegaly. Bones/joints: Unremarkable. No acute fracture. Soft tissues: Unremarkable. Sinuses: Unremarkable as visualized. No acute sinusitis. Mastoid air cells: Unremarkable as visualized. No mastoid effusion. IMPRESSION: No acute intracranial or extra-axial abnormality. Electronically signed by: Sal Kennedy MD 02/09/2025 02:11 AM CDT Due to temporary technical issues with the PACS/[employer] reporting system, reports are being jeremy d by the in-house radiologist without review as a courtesy to ensure prompt reporting the interpreting radiologist is fully responsible for the content of the report. Transcribed Date/Time: 02/09/2025 2:14 AM
[2025-02-09 02:18] LABS: ALT/SGPT 25 U/L (13-56); AST/SGOT 23 U/L (15-37); Albumin 3.8 g/dL (3.4-5.0); Albumin/Globulin Ratio 1.0 (1.1-1.8); Alkaline Phosphatase 72 U/L (45-117); Anion Gap 13.2 mEq/L (5.0-15.0); BUN Blood Urea Nitrogen 13 mg/dL (7-18); Globulin 3.9 g/dL (2.3-3.5); Glucose Level 138 mg/dL (74-106); Magnesium 1.9 mg/dL (1.6-2.4); Potassium 4.2 mEq/L (3.5-5.1); Troponin High Sensitivity 5.7 pg/mL (<58.9)
[2025-02-09 02:32] LABS: Bilirubin Indirect, Calculated 0.2 mg/dL (0.2-0.8)
--- NOTE | 2025-02-09 02:37 | RAD REPORT ---
EXAM: XR Chest, 1 View CLINICAL HISTORY: The patient is 54 years old and is Female; upper back pain TECHNIQUE: Frontal view of the chest. COMPARISON: No relevant prior studies available. FINDINGS: LUNGS: Unremarkable. No consolidation. PLEURAL SPACE: Unremarkable. No pneumothorax. HEART: Unremarkable. No cardiomegaly. MEDIASTINUM: Unremarkable. Normal mediastinal contour. BONES/JOINTS: Unremarkable. No acute fracture. UPPER ABDOMEN: Unremarkable as visualized. IMPRESSION: No acute cardiopulmonary process. Electronically signed by: Gwendolyn Cabrales MD 02/09/2025 02:13 AM CDT RP Due to temporary technical issues with the PACS/[employer] ([employer]) reporting system, reports are being jeremy d by the in-house radiologist without review as a courtesy to ensure prompt reporting the interpreting radiologist is fully responsible for the content of the report. Transcribed Date/Time: 02/09/2025 2:37 AM
[2025-02-09] MEDS ORDERED: LORazepam 2 MG/ML VIAL ONE (02:49)
[2025-02-09] MEDS ORDERED: ASPIRIN 81 MG CHEWABLE TABLET ONE (02:49)
[2025-02-09] MEDS ORDERED: NA CHLORIDE 0.9% 500 ML ONE (02:50)
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
--- NOTE | 2025-02-09 03:01 | ER ---
Nurse's Notes [facility] Name: Vicki Peace Age: 54 yrs Sex: Female : 1970 Arrival Date: 02/08/2025 Time: 23:37 Bed DX3 Private MD: Diagnosis: Adjustment disorder with anxiety;Hypertensive heart disease without heart failure Presentation: 02/08 23:56 Chief complaint: Patient states: HIGH BLOOD PRESSURE ON 2 READING THAT STARTED TONIGHT. jj7 SHOULDER PAIN STARTED TODAY. SINUS PRESSURE AND CHILLS. DRY MOUTH. Coronavirus screen: At this time, the client does not indicate any symptoms associated with coronavirus-19. Ebola Screen: No symptoms or risks identified at this time. Initial Sepsis Screen: Does the patient meet any 2 criteria? No. Patient's initial sepsis screen is negative. Does the patient have a suspected source of infection? No. Patient's initial sepsis screen is negative. Risk Assessment: Do you want to hurt yourself or someone else? Patient reports no desire to harm self or others. Note 2 ALEVE. Onset of symptoms was February 09, 2025. 23:56 Method Of Arrival: Ambulatory [facility] 23:56 Acuity: MARI 3 jj7 Triage Assessment: 02/09 00:14 General: Appears in no apparent distress. comfortable, Behavior is calm, cooperative, jj7 appropriate for age. Pain: Complains of pain in SHOULDERS. Cardiovascular: Reports JAW TIGHTNESS, HEAD PRESSURE, SHOULDER PAIN. Respiratory: Airway is patent Respiratory effort is even, unlabored, Respiratory pattern is regular, symmetrical. 00:14 Musculoskeletal: Reports SHOULDER PAIN. jj7 Historical: - Allergies: 00:14 PENICILLINS; jj7 00:14 Sulfa (Sulfonamide Antibiotics); jj7 00:14 Cefdinir; jj7 - PMHx: 00:14 Hypercholesterolemia; Hypertensive disorder; Anxiety; jj7 - PSHx: 00:14 Appendectomy; Cholecystectomy; tubal ligation; jj7 - Immunization history:: Adult Immunizations up to date. - Infectious Disease History:: Denies. - Social history:: Smoking status: Reported history of juuling and/or vaping. Patient uses alcohol, only on a social basis. A GLASS OF WINE TONIGHT. Patient/guardian denies using street drugs, IV drugs. Screenin:[facility] Fall Risk Assessment (Adult) History of falling in the last 3 months, jj7 including since admission No falls in past 3 months (0 pts) Confusion or Disorientation No (0 pts) Intoxicated or Sedated No (0 pts) Impaired Gait No (0 pts) Mobility Assist Device Used No (0 pt) Altered Elimination No (0 pt) Score/Fall Risk Level 0 - 2 = Low Risk Oriented to surroundings, Maintained a safe environment, Educated pt \T\ family on fall prevention, incl call for assistance when getting out of bed, Assessed \T\ reinforced patient's understanding of fall precautions. Abuse screen: Denies threats or abuse. Nutritional screening: No deficits noted. Tuberculosis screening: No symptoms or risk factors identified. Assessment: 02:50 Reassessment: ASSUMED CARE OF PT. PT SITTING IN CHAIR SLEEPING. RECHECKED BP. VS jj7 STABLE. ORDERED MEDS GIVEN. Patient states feeling better. General: Appears in no apparent distress. uncomfortable, Behavior is calm, cooperative, appropriate for age. 03:45 Reassessment: Patient is alert, oriented x 3, equal unlabored respirations, skin jj7 warm/dry/pink. SITTING TALKING WITH HER FRIEND. NO DISTRESS Patient states feeling better. Patient states symptoms have improved. General: Appears in no apparent distress. comfortable, Behavior is calm, cooperative, appropriate for age. 03:50 Reassessment: No changes from previously documented assessment. jj7 Vital Signs: 02/08 23:56 BP 170 / 102; Pulse 79; Resp 20; Temp 98; Pulse Ox 100% ; Weight 99.34 kg; Height 5 ft. jj7 5 in. ; Pain 2/10; 02/09 02:50 BP 128 / 68; Pulse 71; Resp 20; Pulse Ox 99% ; Pain 0/10; jj7 03:50 BP 106 / 57; Pulse 71; Resp 20; Temp 98.1; Pulse Ox 96% ; Pain 0/10; jj7 02/08 23:56 Body Mass Index 36.44 (99.34 kg, 165.1 cm) j7 02/08 23:56 Pain Scale: Adult jj7 02/09 02:50 Pain Scale: Adult jj7 03:50 Pain Scale: Adult jj7 ED Course: 02/08 23:45 Patient arrived in ED. im 23:51 Page, Willy, PA-C is PHCP. cp 23:52 Julian Negron MD is Attending Physician. cp 02/09 00:14 Triage completed. jj7 00:14 Arm band placed on right wrist. jj7 01:13 CT Head Brain wo Cont In Process Unspecified. EDMS 01:20 XRAY Chest (1 view) In Process Unspecified. EDMS 02:00 Basic Metabolic Panel Sent. oe 02:00 CBC with Diff Sent. oe 02:00 LFT's Sent. oe 02:00 Magnesium Sent. oe 02:01 PT-INR Sent. oe 02:01 Troponin HS Sent. oe 02:50 Patient has correct armband on for positive identification. Warm blanket given. jj7 02:50 No provider procedures requiring assistance completed. jj7 04:05 IV discontinued, intact, bleeding controlled, No redness/swelling at site. Pressure jj7 dressing applied. Administered Medications: 02:58 Drug: Aspirin PO Chewable Tablet 324 mg PO once; 81 mg tablets x 4 Route: PO; jj7 03:03 Follow up: Response: No adverse reaction jj7 02:58 Drug: NS 0.9% IV 500 ml 500 ml IV at 1 bolus once; to be given as a bolus over 60 jj7 minutes Volume: 500 ml; Route: IV; Rate: 1 bolus; Site: left antecubital; 04:15 Follow up: IV Status: Completed infusion jj7 02:58 Not Given (Hemodynamic Parameters): clonidine0.1 mg PO once; if systolic pressure >165 jj7 03:00 Drug: Ativan IVP 1 mg IVP once Route: IVP; Site: left antecubital; jj7 04:15 Follow up: Response: Marked relief of symptoms jj7 Medication: 02:50 VIS not applicable for this client. jj7 Outcome: 03:00 Discharge ordered by . cp 04:05 Discharged to home ambulatory, with friend, jj7 04:05 Condition: improved 04:05 Discharge instructions given to patient, Instructed on discharge instructions, medication usage, Demonstrated understanding of instructions, medications, Prescriptions given X 1, 04:21 Patient left the ED. jj7 Signatures: Dispatcher [employer] EDOR Willy Talley PA-C PA-C cp Espinosa, Orlando oe Johnson, Juwairiyah, RN RN jj7 Moira Hemphill im
[2025-02-09 04:28] VITALS: BP 106/57; TEMP 98.1; O2SAT 96
== END 2025-02-09 04:21 | disposition home or self-care (01) ==
LOC: ER 23:37
DX: F43.22 Adjustment disorder with anxiety (principal); I11.9 Hypertensive heart disease without heart failure
CPT/HCPCS: 96361; 93005; 85025; 80048; 36415; 83735; 85610; 80076; 84484; 70450; 71045; 96374; 99284; J7040